=== PATIENT | female | born 1945 | race Two or more races ===

== ENCOUNTER 2022-09-23 07:52 | Day surgery (SDC) | payer OTHER, MEDICAID ==
[2022-09-23] VITALS (7 sets, daily range): BP systolic 123–150; BP diastolic 53–86
[~2022-09-23] VITALS: Ht 162.6 cm; Wt 81.6 kg
[~2022-09-23 07:52] MED LIST: ASPI-543 PO; ATOR10TA52 PO; GLIM4TAB42 PO; HYDR25TA5 PO; LOSA25TA38 PO; METF-929 PO; METO25TA93 PO; PANT40T PO; PIOG1TAB51 PO; SITA100T7 PO
[2022-09-23] MEDS ORDERED: IODIXANOL 320MG/ML 100ML BTL IV ONE ×2 (10:21→10:54)
[2022-09-23] MEDS ORDERED: HEPARIN SODIUM (PORCINE) 5000 UNITS/ML 1ML VIAL ONE (10:23)
[2022-09-23] MEDS ORDERED: ANGIOMAX 250 MG VIAL IV ONE (10:23)
[2022-09-23] MEDS ORDERED: fentaNYL CITRATE 100 MCG/2 ML VL ONE (10:23)
[2022-09-23] MEDS ORDERED: VERAPAMIL 2.5MG/ML INJ 2ML VIAL IV ONE (10:23)
[2022-09-23] MEDS ORDERED: SODIUM CHL 0.9% 0 ML ONE (10:24)
[2022-09-23] MEDS ORDERED: MIDAZOLAM HCL 2MG/2ML 2ml VIAL (1mg/ml) ONE (10:24)
[2022-09-23] MEDS ORDERED: LIDOCAINE 2%HCL (LOCAL ANESTH.) INJ 10ml MDV ONE (10:28)
== END 2022-09-23 14:11 | disposition home or self-care (01) ==
LOC: CATH 07:52
PROVIDERS: ATTEND Internal Medicine
DX: R94.39 Abnormal result of other cardiovascular function study (principal); I25.118 Atherosclerotic heart disease of native coronary artery with other forms of angina pectoris; I10 Essential (primary) hypertension; Z88.0 Allergy status to penicillin; Z79.899 Other long term (current) drug therapy; Z20.822 Contact with and (suspected) exposure to COVID-19
CPT/HCPCS: 82962; 93458; C1769; C1887; C1894; J1644; J2001; J2250; J3010; Q9967; U0003; 99152; 99153

== ENCOUNTER 2022-11-26 21:36 | Inpatient (IN) | payer OTHER ==
[~2022-11-26] VITALS: Ht 162.6 cm; Wt 86.0 kg
[2022-11-26 22:31] LABS: Basophils # (auto) 0.1 10 ^3/uL (0-0.2); Basophils % (auto) 1.1 % (0.0-2.0); Eosinophils # (auto) 0.1 10 ^3/uL (0-0.8); Eosinophils % (auto) 1.3 % (0.0-7.0); Hematocrit 38.3 % (36.0-46.0); Hemoglobin 12.8 g/dL (12.2-16.2); Lymphocytes # (auto) 2.1 10 ^3/uL (0.4-5.4); Lymphocytes % (auto) 29.8 % (10.0-50.0); Mean Corpuscular Hemoglobin 30.6 pg (28.0-32.0); Mean Corpuscular Hgb Conc. 33.5 g/dL (32.0-36.0); Mean Corpuscular Volume 91.4 fL (80.0-100.0); Monocytes # (auto) 0.6 10 ^3/uL (0-1.3); Monocytes % (auto) 8.6 % (0.0-12.0); Neutrophils # (auto) 4.2 10 ^3/uL (1.6-8.6); Neutrophils % (auto) 59.2 % (37.0-80.0); Nucleated Red Blood Cells % 0.1 %; Red Blood Cells 4.19 10^6/uL (4.0-5.20); Red Cell Distribution Width 14.7 % (11.8-14.3)
[2022-11-26] MEDS ORDERED: HEPARIN DRIP/D5W 100UNITS/ML 250 ML IV SCH (22:45)
[2022-11-26] MEDS ORDERED: HEPARIN SODIUM (PORCINE) 5000 UNITS/ML 1ML VIAL IV ONE (22:45)
[2022-11-26 22:47] LABS: INR 0.99 (0.9-1.15); Partial Thromboplastin Time 31.9 sec (24.6-33.4)
[2022-11-26 23:15] LABS: Albumin 3.6 g/dL (3.4-5.0); BUN/Creatinine Ratio 23.7; Magnesium 1.9 mg/dL (1.6-2.6)
[2022-11-26 23:18] LABS: Bilirubin, Total 0.4 mg/dL (0.2-1.0); Total Protein 7.6 g/dL (6.4-8.2)
[2022-11-27] MEDS ORDERED: ONDANSETRON HCL 4 MG/2 ML VIAL IV ONE (00:15)
[2022-11-27] MEDS ORDERED: MORPHINE SULFATE 4 MG/ML SYR/VIAL IV ONE (00:15)
[2022-11-27] MEDS ORDERED: MAGNESIUM SULFATE 1GM/100ML 100 ML IV ONE (00:15)
[2022-11-27] MEDS ORDERED: ACETAMINOPHEN 500 MG TAB PO PRN (03:30)
[2022-11-27] MEDS ORDERED: DEXTROSE (50%) 50ML SYRG IV PRN (07:45)
[2022-11-27] MEDS ORDERED: PANTOPRAZOLE 40 MG TAB PO SCH (07:45)
[2022-11-27 07:48] LABS: INR 1.02 (0.9-1.15)
[2022-11-27 07:57] LABS: Partial Thromboplastin Time 115.4 sec (24.6-33.4)
[2022-11-27] MEDS ORDERED: HEPARIN DRIP/D5W 100UNITS/ML 250 ML IV SCH (09:00)
[2022-11-27] MEDS: METOPROLOL SUCCINATE XL 50 MG TAB PO SCH (11:01)
[2022-11-27] MEDS: LOSARTAN POTASSIUM 25 MG TAB PO SCH (11:01)
[2022-11-27] MEDS: GLIMEPIRIDE 2 MG TAB PO SCH (11:02)
[2022-11-27] MEDS: ACCU-CHEK COMFORT CURVE STRIP VI SCH ×3 (12:02→22:35)
[2022-11-27] MEDS: InsuLIN REG 1unit/0.01ml Soln (100units/ml) SC SCH ×3 (12:04→22:45)
[2022-11-27 15:56] LABS: INR 0.99 (0.9-1.15); Partial Thromboplastin Time 42.1 sec (24.6-33.4)
[2022-11-27] MEDS: ONDANSETRON HCL 4 MG/2 ML VIAL IV PRN (16:04)
[2022-11-27] MEDS: MORPHINE SULFATE 4 MG/ML SYR/VIAL IV PRN ×2 (16:05→17:50)
[2022-11-27] MEDS: HEPARIN DRIP/D5W 100UNITS/ML 250 ML IV SCH (17:47)
[2022-11-27] MEDS: ATORVASTATIN 20 MG TAB PO SCH (22:51)
[2022-11-28 01:02] LABS: Partial Thromboplastin Time 61.9 sec (24.6-33.4)
[2022-11-28] MEDS: ONDANSETRON HCL 4 MG/2 ML VIAL IV PRN ×2 (01:13→11:42)
[2022-11-28] MEDS: MORPHINE SULFATE 4 MG/ML SYR/VIAL IV PRN (01:23)
[2022-11-28 06:28] LABS: INR 1.01 (0.9-1.15); Partial Thromboplastin Time 64.3 sec (24.6-33.4)
[2022-11-28] MEDS: ACCU-CHEK COMFORT CURVE STRIP VI SCH ×4 (07:19→22:31)
[2022-11-28] MEDS: InsuLIN REG 1unit/0.01ml Soln (100units/ml) SC SCH ×4 (08:08→22:38)
[2022-11-28] MEDS: HEPARIN DRIP/D5W 100UNITS/ML 250 ML IV SCH (08:09)
[2022-11-28] MEDS: GLIMEPIRIDE 2 MG TAB PO SCH (10:31)
[2022-11-28] MEDS: LOSARTAN POTASSIUM 25 MG TAB PO SCH (10:35)
[2022-11-28] MEDS: METOPROLOL SUCCINATE XL 50 MG TAB PO SCH (10:35)
[2022-11-28] MEDS: MORPHINE SULFATE INJ 2 MG/ml SYRG IV PRN ×2 (11:41→21:22)
[2022-11-28 12:49] LABS: INR 1.01 (0.9-1.15); Partial Thromboplastin Time 57.3 sec (24.6-33.4)
[2022-11-28] MEDS ORDERED: DOCUSATE SOD 100 MG CAP PO PRN (18:00)
[2022-11-28 22:00] VITALS: BP 131/58
[2022-11-28] MEDS: ATORVASTATIN 20 MG TAB PO SCH (22:27)
[2022-11-28 23:14] LABS: INR 0.99 (0.9-1.15); Partial Thromboplastin Time 51.1 sec (24.6-33.4)
[2022-11-29 04:54] VITALS: BP 149/69
[2022-11-29] MEDS: ACCU-CHEK COMFORT CURVE STRIP VI SCH ×3 (06:33→17:43)
[2022-11-29] MEDS: InsuLIN REG 1unit/0.01ml Soln (100units/ml) SC SCH ×3 (06:34→17:46)
[2022-11-29 06:39] LABS: INR 0.98 (0.9-1.15); Partial Thromboplastin Time 55.2 sec (24.6-33.4)
[2022-11-29 09:00] VITALS: BP 109/46
[2022-11-29] MEDS: LOSARTAN POTASSIUM 25 MG TAB PO SCH (09:44)
[2022-11-29] MEDS: GLIMEPIRIDE 2 MG TAB PO SCH (09:44)
[2022-11-29] MEDS: METOPROLOL SUCCINATE XL 50 MG TAB PO SCH (09:45)
[2022-11-29 13:00] VITALS: BP 119/54
[2022-11-29] MEDS: HEPARIN DRIP/D5W 100UNITS/ML 250 ML IV SCH (13:11)
[2022-11-29] MEDS: ONDANSETRON HCL 4 MG/2 ML VIAL IV PRN (14:40)
[2022-11-29] MEDS: MORPHINE SULFATE INJ 2 MG/ml SYRG IV PRN (14:41)
[2022-11-29 16:38] VITALS: BP 122/58
[2022-11-29] MEDS ORDERED: ASPirin 81 mg TAB PO ONE (17:15)
[2022-11-30] MEDS ORDERED: ASPirin 81 mg TAB PO SCH (10:00)
== END 2022-11-29 21:28 | disposition short-term general hospital (02) | DRG 282 ==
LOC: ER 21:40 → TELE 11-27 03:29 → TELE-WESTW 11-28 18:39
PROVIDERS: ADMIT Internal Medicine; ATTEND Internal Medicine
DX: I21.4 Non-ST elevation (NSTEMI) myocardial infarction (principal); I10 Essential (primary) hypertension; E11.65 Type 2 diabetes mellitus with hyperglycemia; E66.9 Obesity, unspecified; K21.9 Gastro-esophageal reflux disease without esophagitis; E78.5 Hyperlipidemia, unspecified; Z20.822 Contact with and (suspected) exposure to COVID-19; J44.9 Chronic obstructive pulmonary disease, unspecified; I25.10 Atherosclerotic heart disease of native coronary artery without angina pectoris; Z68.32 Body mass index [BMI] 32.0-32.9, adult; Z86.73 Personal history of transient ischemic attack (TIA), and cerebral infarction without residual deficits; Z88.0 Allergy status to penicillin; Z90.49 Acquired absence of other specified parts of digestive tract
CPT/HCPCS: 36415; 71045; 80053; 82962; 83735; 83880; 84484; 85025; 85610; 85730; 87426; 93005; 99291; G0378; J1815; J2405

== ENCOUNTER 2023-04-17 21:07 | Inpatient (IN) | payer OTHER ==
[~2023-04-17] VITALS: Ht 162.6 cm; Wt 77.4 kg
[~2023-04-17 21:07] MED LIST changes: +LOSA25TA15 PO; -LOSA25TA38 PO
[2023-04-17 22:12] LABS: Basophils # (auto) 0.1 10 ^3/uL (0-0.2); Eosinophils # (auto) 0.1 10 ^3/uL (0-0.8); Lymphocytes # (auto) 2.4 10 ^3/uL (0.4-5.4); Nucleated Red Blood Cells % 0.1 %; White Blood Cell 7.5 10^3/uL (4.4-10.8)
[2023-04-17 22:14] LABS: Basophils % (auto) 0.7 % (0.0-2.0); Eosinophils % (auto) 1.5 % (0.0-7.0); Hematocrit 34.3 % (36.0-46.0); Mean Corpuscular Hemoglobin 25.7 pg (28.0-32.0); Mean Corpuscular Hgb Conc. 32.1 g/dL (32.0-36.0); Mean Corpuscular Volume 80.1 fL (80.0-100.0); Monocytes # (auto) 0.7 10 ^3/uL (0-1.3); Monocytes % (auto) 9.3 % (0.0-12.0); Neutrophils # (auto) 4.2 10 ^3/uL (1.6-8.6); Neutrophils % (auto) 56.5 % (37.0-80.0); Red Blood Cells 4.28 10^6/uL (4.0-5.20); Red Cell Distribution Width 17.6 % (11.8-14.3)
[2023-04-17 22:29] LABS: Albumin 3.5 g/dL (3.4-5.0); Calcium 9.5 mg/dL (8.5-10.1); Potassium 3.9 mmol/L (3.5-5.1)
[2023-04-17 22:33] LABS: Bilirubin, Total 0.3 mg/dL (0.2-1.0); Total Protein 7.8 g/dL (6.4-8.2)
[2023-04-18] MEDS ORDERED: MECLIZINE HCL 25 MG TAB PO ONE (01:30)
[2023-04-18] MEDS ORDERED: SODIUM CHLORIDE 0.9% 500 ML IV ONE (01:30)
[2023-04-18] MEDS ORDERED: diazePAM 5 MG TAB PO ONE (01:30)
[2023-04-18 01:58] LABS: Urine Bacteria FEW /hpf (None Seen); Urine Blood Negative /uL (Negative); Urine Specific Gravity 1.004 (1.001-1.035); Urine WBC 1 /hpf (0 - 5)
[2023-04-18] MEDS ORDERED: ONDANSETRON HCL 4 MG/2 ML VIAL IV PRN (02:15)
[2023-04-18] MEDS ORDERED: hydrALAZINE HCL 20 MG/ML VL IV PRN (02:15)
[2023-04-18] MEDS ORDERED: ACETAMINOPHEN 325 MG TAB PO PRN (02:15)
[2023-04-18] MEDS ORDERED: DOCUSATE SOD 100 MG CAP PO PRN (02:15)
[2023-04-18] MEDS ORDERED: HYDROcodone-ACET 5/325MG TAB PO PRN (02:15)
[2023-04-18] MEDS ORDERED: DEXTROSE (50%) 50ML SYRG IV PRN (02:15)
[2023-04-18] MEDS ORDERED: NITROGLYCERIN 0.4 MG SL TAB SL PRN (03:00)
[2023-04-18] MEDS ORDERED: MORPHINE SULFATE INJ 2 MG/ml SYRG IV PRN (03:00)
[2023-04-18] MEDS: SODIUM CHLORIDE 0.9% 1,000 ML IV SCH ×2 (03:03→18:55)
[2023-04-18 05:47] LABS: Basophils # (auto) 0.1 10 ^3/uL (0-0.2); Eosinophils # (auto) 0.2 10 ^3/uL (0-0.8); Hemoglobin 10.4 g/dL (12.2-16.2); Monocytes # (auto) 0.7 10 ^3/uL (0-1.3); Nucleated Red Blood Cells % 0.1 %
[2023-04-18 05:50] LABS: Basophils % (auto) 0.9 % (0.0-2.0); Eosinophils % (auto) 2.2 % (0.0-7.0); Hematocrit 32.4 % (36.0-46.0); Lymphocytes % (auto) 39.1 % (10.0-50.0); Mean Corpuscular Hemoglobin 25.9 pg (28.0-32.0); Mean Corpuscular Hgb Conc. 32.3 g/dL (32.0-36.0); Mean Corpuscular Volume 80.3 fL (80.0-100.0); Monocytes % (auto) 8.5 % (0.0-12.0); Neutrophils # (auto) 3.8 10 ^3/uL (1.6-8.6); Neutrophils % (auto) 49.3 % (37.0-80.0); Red Blood Cells 4.03 10^6/uL (4.0-5.20); Red Cell Distribution Width 17.6 % (11.8-14.3); White Blood Cell 7.7 10^3/uL (4.4-10.8)
[2023-04-18 05:53] LABS: Calcium 9.2 mg/dL (8.5-10.1); Potassium 3.5 mmol/L (3.5-5.1)
[2023-04-18 05:56] LABS: Bilirubin, Total 0.3 mg/dL (0.2-1.0); Total Protein 6.9 g/dL (6.4-8.2)
[2023-04-18] MEDS: ACCU-CHEK COMFORT CURVE STRIP VI SCH ×4 (06:49→22:00)
[2023-04-18] MEDS: InsuLIN REG 1unit/0.01ml Soln (100units/ml) SC SCH ×3 (06:49→16:44)
[2023-04-18] MEDS: METOPROLOL TARTRATE 25 MG TAB PO SCH ×2 (10:09→22:04)
[2023-04-18] MEDS: ASPirin 81 mg TAB PO SCH (10:10)
[2023-04-18] MEDS: FAMOTIDINE (10MG/ML) 2ML VL IV SCH ×2 (10:10→22:04)
[2023-04-18 11:06] VITALS: BP 130/62
[2023-04-18] MEDS: MECLIZINE HCL 25 MG TAB PO PRN (17:00)
[2023-04-18 17:22] VITALS: BP 123/59
[2023-04-18] MEDS ORDERED: LORazepam 2MG/ML-1ML VIAL IV PRN (20:30)
[2023-04-18 22:00] VITALS: BP 144/71
[2023-04-18] MEDS ORDERED: ATORVASTATIN 20 MG TAB PO SCH (22:00)
[2023-04-18] MEDS ORDERED: InsuLIN REG 1unit/0.01ml Soln (100units/ml) SC SCH (22:00)
[2023-04-19 05:00] VITALS: BP 154/68
[2023-04-19 05:46] LABS: Basophils # (auto) 0.1 10 ^3/uL (0-0.2); Eosinophils # (auto) 0.2 10 ^3/uL (0-0.8); Hemoglobin 11.4 g/dL (12.2-16.2); Mean Corpuscular Volume 79.8 fL (80.0-100.0); Monocytes # (auto) 0.6 10 ^3/uL (0-1.3); Nucleated Red Blood Cells % 0.1 %
[2023-04-19 05:49] LABS: Basophils % (auto) 1.2 % (0.0-2.0); Calcium 9.3 mg/dL (8.5-10.1); Eosinophils % (auto) 2.4 % (0.0-7.0); Hematocrit 35.1 % (36.0-46.0); Lymphocytes # (auto) 3.1 10 ^3/uL (0.4-5.4); Lymphocytes % (auto) 42.8 % (10.0-50.0); Mean Corpuscular Hemoglobin 25.9 pg (28.0-32.0); Mean Corpuscular Hgb Conc. 32.5 g/dL (32.0-36.0); Monocytes % (auto) 7.6 % (0.0-12.0); Neutrophils # (auto) 3.4 10 ^3/uL (1.6-8.6); Potassium 3.9 mmol/L (3.5-5.1); Red Blood Cells 4.39 10^6/uL (4.0-5.20); Red Cell Distribution Width 17.8 % (11.8-14.3); White Blood Cell 7.3 10^3/uL (4.4-10.8)
[2023-04-19 05:55] LABS: Albumin 3.2 g/dL (3.4-5.0); BUN/Creatinine Ratio 24.3 (10.0-20.0); Bilirubin, Total 0.4 mg/dL (0.2-1.0); Total Protein 7.5 g/dL (6.4-8.2)
[2023-04-19] MEDS: InsuLIN REG 1unit/0.01ml Soln (100units/ml) SC SCH ×2 (06:02→11:58)
[2023-04-19] MEDS: ACCU-CHEK COMFORT CURVE STRIP VI SCH ×2 (06:37→12:44)
[2023-04-19] MEDS: FAMOTIDINE (10MG/ML) 2ML VL IV SCH (09:58)
[2023-04-19] MEDS: ASPirin 81 mg TAB PO SCH (09:58)
[2023-04-19] MEDS: MECLIZINE HCL 25 MG TAB PO PRN (09:58)
[2023-04-19] MEDS: METOPROLOL TARTRATE 25 MG TAB PO SCH (10:09)
[2023-04-19] MEDS: SODIUM CHLORIDE 0.9% 1,000 ML IV SCH ×2 (11:35→13:00)
[2023-04-19 13:00] VITALS: BP 126/76
[2023-04-19] MEDS ORDERED: MECL25CH38 PO (13:33)
[2023-04-19 13:43] VITALS: BP 147/65
== END 2023-04-19 14:45 | disposition home or self-care (01) | DRG 149 ==
LOC: ER 21:07 → TELE 04-18 02:51 → TELE-EAST 04-18 12:20
PROVIDERS: ADMIT Nurse Practitioner Family; ATTEND Internal Medicine
DX: R42 Dizziness and giddiness (principal); E44.1 Mild protein-calorie malnutrition; E11.65 Type 2 diabetes mellitus with hyperglycemia; I10 Essential (primary) hypertension; I16.0 Hypertensive urgency; I25.10 Atherosclerotic heart disease of native coronary artery without angina pectoris; J44.9 Chronic obstructive pulmonary disease, unspecified; D64.9 Anemia, unspecified; M19.90 Unspecified osteoarthritis, unspecified site; K21.9 Gastro-esophageal reflux disease without esophagitis; Z82.49 Family history of ischemic heart disease and other diseases of the circulatory system; Z86.73 Personal history of transient ischemic attack (TIA), and cerebral infarction without residual deficits; Z83.3 Family history of diabetes mellitus; Z88.0 Allergy status to penicillin; Z95.1 Presence of aortocoronary bypass graft; Z87.440 Personal history of urinary (tract) infections; Z90.49 Acquired absence of other specified parts of digestive tract; Z68.29 Body mass index [BMI] 29.0-29.9, adult
CPT/HCPCS: 36415; 70450; 71045; 71250; 72125; 74176; 80053; 81001; 82962; 83036; 83735; 83880; 84484; 85025; 93005; 97163; G0378; J1815; J3490

== ENCOUNTER 2024-02-13 13:01 | Emergency (ER) | payer OTHER ==
[~2024-02-13] VITALS: Ht 162.6 cm; Wt 70.5 kg
[~2024-02-13 13:01] MED LIST changes: +LOSA-533 PO; -LOSA25TA15 PO; +MECL25CH38 PO; -METO25TA93 PO; -PIOG1TAB51 PO
[2024-02-13 14:19] LABS: Urine Bacteria FEW /hpf (None Seen); Urine Blood Negative /uL (Negative); Urine Clarity Clear (Clear); Urine Color Colorless (Yellow); Urine Protein, UAD Negative (Negative); Urine Specific Gravity 1.009 (1.001-1.035); Urine Urobilinogen Normal (Negative); Urine WBC 5 /hpf (0 - 5)
[2024-02-13] MEDS: ONDANSETRON ODT 4 MG TAB PO ONE (14:40)
[2024-02-13 14:42] LABS: Basophils # (auto) 0 10 ^3/uL (0-0.2); Basophils % (auto) 0.7 % (0.0-2.0); Eosinophils # (auto) 0.1 10 ^3/uL (0-0.8); Eosinophils % (auto) 1.5 % (0.0-7.0); Hematocrit 43.6 % (36.0-46.0); Lymphocytes # (auto) 2.1 10 ^3/uL (0.4-5.4); Lymphocytes % (auto) 30.1 % (10.0-50.0); Mean Corpuscular Hemoglobin 28.8 pg (28.0-32.0); Mean Corpuscular Volume 89.9 fL (80.0-100.0); Monocytes # (auto) 0.5 10 ^3/uL (0-1.3); Monocytes % (auto) 6.9 % (0.0-12.0); Neutrophils # (auto) 4.3 10 ^3/uL (1.6-8.6); Neutrophils % (auto) 60.8 % (37.0-80.0); Nucleated Red Blood Cells % 0.1 %; Red Blood Cells 4.85 10^6/uL (4.0-5.20); Red Cell Distribution Width 15.9 % (11.8-14.3); White Blood Cell 7.1 10^3/uL (4.4-10.8)
[2024-02-13 14:43] VITALS: TEMP 98
[2024-02-13 15:01] LABS: Alanine Aminotransferase 24 U/L (7-40); Albumin 4.1 g/dL (3.2-4.8); Alkaline Phosphatase 109 U/L (46-116); Anion Gap 7 (5-15); Aspartate Aminotransferase 17 U/L (13-40); BUN/Creatinine Ratio 26.6 (10.0-20.0); Bilirubin, Total 0.4 mg/dL (0.2-1.0); Blood Urea Nitrogen 17 mg/dL (9-23); Calcium 9.9 mg/dL (8.7-10.4); Carbon Dioxide 25 mmol/L (20-30); Chloride 106 mmol/L (98-107); Glucose 157 mg/dL (74-106); Lipase 40 U/L (12-53); Potassium 3.9 mmol/L (3.5-5.1); Sodium 138 mmol/L (136-145); Total Protein 7.1 g/dL (5.7-8.2)
[2024-02-13] MEDS ORDERED: ZOFR4T PO (15:19)
[2024-02-13] MEDS ORDERED: DICY10CA PO (15:19)
[2024-02-13] MEDS: MAALOX PLUS or MAALOX 30 ML PO ONE (15:57)
[2024-02-13] MEDS: DONNATAL 5ml ORAL Elix (BELLADONNA ALK-PHENOBARB) PO ONE (15:57)
[2024-02-13] MEDS: LIDOCAINE VISCOUS 2% 15ML UD PO ONE (15:58)
[2024-02-13 16:00] VITALS: BP 106/54
[2024-02-13 16:16] VITALS: PULSE 75; RESP 15; O2SAT 95
== END 2024-02-13 16:29 | disposition home or self-care (01) ==
LOC: ER 13:01
DX: K57.90 Diverticulosis of intestine, part unspecified, without perforation or abscess without bleeding (principal); R10.32 Left lower quadrant pain; R19.7 Diarrhea, unspecified; I10 Essential (primary) hypertension; I25.10 Atherosclerotic heart disease of native coronary artery without angina pectoris; E11.9 Type 2 diabetes mellitus without complications; K21.9 Gastro-esophageal reflux disease without esophagitis; M19.90 Unspecified osteoarthritis, unspecified site; E78.5 Hyperlipidemia, unspecified; Z86.2 Personal history of diseases of the blood and blood-forming organs and certain disorders involving the immune mechanism; Z86.73 Personal history of transient ischemic attack (TIA), and cerebral infarction without residual deficits; Z98.890 Other specified postprocedural states; Z88.0 Allergy status to penicillin; Z79.899 Other long term (current) drug therapy
CPT/HCPCS: 36415; 74176; 80053; 81001; 83605; 83690; 85025; 99284; Q0162

== ENCOUNTER 2024-03-11 09:18 | Emergency (ER) | payer OTHER ==
[~2024-03-11] VITALS: Ht 162.6 cm; Wt 69.7 kg
[~2024-03-11 09:18] MED LIST changes: +DICY10CA PO; +ZOFR4T PO
[2024-03-11] MEDS: cloNIDine HCL 0.1 MG TAB PO ONE (09:40)
[2024-03-11 10:16] LABS: Basophils # (auto) 0.1 10 ^3/uL (0-0.2); Basophils % (auto) 0.8 % (0.0-2.0); Eosinophils # (auto) 0.1 10 ^3/uL (0-0.8); Eosinophils % (auto) 1.6 % (0.0-7.0); Hematocrit 43.2 % (36.0-46.0); Hemoglobin 14.4 g/dL (12.2-16.2); Lymphocytes # (auto) 2.1 10 ^3/uL (0.4-5.4); Lymphocytes % (auto) 27.8 % (10.0-50.0); Mean Corpuscular Hemoglobin 30.1 pg (28.0-32.0); Mean Corpuscular Hgb Conc. 33.2 g/dL (32.0-36.0); Mean Corpuscular Volume 90.6 fL (80.0-100.0); Monocytes # (auto) 0.5 10 ^3/uL (0-1.3); Monocytes % (auto) 5.8 % (0.0-12.0); Nucleated Red Blood Cells % 0.1 %; Red Blood Cells 4.77 10^6/uL (4.0-5.20); White Blood Cell 7.7 10^3/uL (4.4-10.8)
[2024-03-11 10:27] LABS: Chloride 107 mmol/L (98-107); Sodium 139 mmol/L (136-145)
[2024-03-11 10:28] LABS: Anion Gap 4 (5-15); Calcium 9.8 mg/dL (8.5-10.1); Carbon Dioxide 28 mmol/L (20-30)
[2024-03-11 10:33] LABS: BUN/Creatinine Ratio 29.1 (10.0-20.0); Blood Urea Nitrogen 16 mg/dL (9-23); Glucose 175 mg/dL (74-106)
[2024-03-11 13:46] VITALS: BP 105/73; PULSE 70; RESP 16; TEMP 98.2; O2SAT 96
== END 2024-03-11 13:48 | disposition home or self-care (01) ==
LOC: ER 09:18
DX: I16.0 Hypertensive urgency (principal); E78.5 Hyperlipidemia, unspecified; E11.9 Type 2 diabetes mellitus without complications; K21.9 Gastro-esophageal reflux disease without esophagitis; I25.10 Atherosclerotic heart disease of native coronary artery without angina pectoris; M19.90 Unspecified osteoarthritis, unspecified site; Z86.2 Personal history of diseases of the blood and blood-forming organs and certain disorders involving the immune mechanism; Z98.890 Other specified postprocedural states; Z88.0 Allergy status to penicillin; Z79.899 Other long term (current) drug therapy
CPT/HCPCS: 36415; 80048; 84484; 85025; 93005

== ENCOUNTER → 2024-06-07 | Outpatient (CLI) | payer MEDICAID ==
[2024-06-07 11:16] LABS: Basophils # (auto) 0.1 10 ^3/uL (0-0.2); Eosinophils # (auto) 0.1 10 ^3/uL (0-0.8); Eosinophils % (auto) 2.6 % (0.0-7.0); Hematocrit 41.9 % (36.0-46.0); Hemoglobin 14.2 g/dL (12.2-16.2); Lymphocytes # (auto) 1.9 10 ^3/uL (0.4-5.4); Mean Corpuscular Hemoglobin 31.7 pg (28.0-32.0); Mean Corpuscular Volume 93.3 fL (80.0-100.0); Monocytes # (auto) 0.5 10 ^3/uL (0-1.3); Monocytes % (auto) 8.4 % (0.0-12.0); Platelet Count (auto) 166 10^3/uL (140-450); Red Blood Cells 4.49 10^6/uL (4.0-5.20); Red Cell Distribution Width 14.6 % (11.8-14.3); White Blood Cell 5.5 10^3/uL (4.4-10.8)
[2024-06-07 11:23] LABS: Urine Bacteria FEW /hpf (None Seen); Urine Blood Negative /uL (Negative); Urine Clarity Turbid (Clear); Urine Color Colorless (Yellow); Urine Protein, UAD Negative (Negative); Urine Specific Gravity 1.019 (1.001-1.035); Urine Urobilinogen Normal (Negative); Urine WBC 4 /hpf (0 - 5)
[2024-06-07 12:11] LABS: Alanine Aminotransferase 18 U/L (7-40); Alkaline Phosphatase 97 U/L (46-116); Anion Gap 8 (5-15); Aspartate Aminotransferase 14 U/L (13-40); BUN/Creatinine Ratio 27.7 (10.0-20.0); Bilirubin, Total 0.5 mg/dL (0.2-1.0); Blood Urea Nitrogen 18 mg/dL (9-23); Calcium 10.6 mg/dL (8.7-10.4); Carbon Dioxide 26 mmol/L (20-30); Chloride 106 mmol/L (98-107); Cholesterol 132 mg/dL (< 200); Glucose 120 mg/dL (74-106); HDL Cholesterol 41 mg/dL (40-59); LDL Cholesterol 68 mg/dL (< 100); Magnesium 1.8 mg/dL (1.6-2.6); Potassium 3.8 mmol/L (3.5-5.1); Sodium 140 mmol/L (136-145); Total Protein 7.1 g/dL (5.7-8.2); Triglycerides 111 mg/dL (< 150)
[2024-06-07 12:28] LABS: Folate (Folic Acid) 33.81 ng/mL (>5.38); Uric Acid 3.6 mg/dL (3.1-7.8)
== END | disposition home or self-care (01) ==
LOC: LAB 10:36
PROVIDERS: ATTEND Internal Medicine
DX: Z00.00 Encounter for general adult medical examination without abnormal findings (principal); I25.10 Atherosclerotic heart disease of native coronary artery without angina pectoris; E11.9 Type 2 diabetes mellitus without complications; Z79.4 Long term (current) use of insulin; I10 Essential (primary) hypertension; E78.2 Mixed hyperlipidemia
CPT/HCPCS: 36415; 80053; 80061; 81001; 82306; 82607; 82746; 83036; 83735; 84443; 84550; 85025; 87086

== ENCOUNTER 2024-09-12 18:16 | Emergency (ER) | payer OTHER, MEDICAID ==
[~2024-09-12] VITALS: Ht 162.6 cm; Wt 75.0 kg
[~2024-09-12 18:16] MED LIST changes: +ALOG1TAB2 PO; +ATOR20TA PO; +DICL5GEL TD; +EMPA1TAB3 PO; +OME20T PO; +SEMA2INJ3 SC; +TRAZ-227 PO
[2024-09-12 18:20] VITALS: BP 108/63; RESP 20; O2SAT 95
[2024-09-12 18:21] VITALS: PULSE 108
--- NOTE | 2024-09-12 18:24 | ECG ---
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
--- NOTE | 2024-09-12 18:44 | ED.PDOC ---
History of Present Illness HPI Comments 79-year-old female with history of CAD, diabetes, hypertension and dyslipidemia brought in by daughter for evaluation of abdominal pain nausea and vomiting all day today. Patient also reports dysuria and subjective fever. She denies any current chest pain, shortness of breath or diarrhea. States she is constipated. Last bowel movement was yesterday. Patient also reports taking 1 sublingual nitroglycerin due to chest discomfort at home. Time Seen by MD: 18:30 Primary Care Provider: unknown Reviewed Notes: Nurses Notes, Medications, Allergies Allergies: Coded Allergies: Penicillins (Verified Allergy, Unknown, 08/21/16) Home Meds Active Scripts Ondansetron Odt 4MG Tab (ZOFRAN PO) 4 Mg Tb, 4 MG PO Q8HR PRN, #14 TAB ODT TAB-DISSOLVE IN MOUTH, THEN SWALLOW Prov:AMY COPELAND MD 02/13/24 Dicyclomine Hcl (BENTYL CAPSULE) 10 Mg Cp, 1 CAP PO Q6HR PRN, #20 CAP 3 Refills Prov:AMY COPELAND MD 02/13/24 Meclizine HCl (Meclizine) 25 Mg Chw, 25 MG PO BIDPRN PRN for 30 Days, #60 CHW Prov:FLORI MACARIO TELE MARKETING EXECUTIVE 04/19/23 Reported Medications Hctz (Hydrochlorothiazide) 25 Mg Tab, 50 MG PO DAILY for EDEMA, TAB 09/20/22 Losartan Potassium (Losartan Potassium) 25 Mg Tab, 25 MG PO DAILY for HTN for 30 Days, MG 09/20/22 Sitagliptin Phosphate (Januvia) 100 Mg Tab, 1 TAB PO DAILY for DIABETES, #30 TAB 5 Refills 09/20/22 Atorvastatin Calcium (ATORVASTATIN CALCIUM) 10 Mg Tab, 1 TAB PO DAILY for HIGH CHOLESTEROL, #30 TAB 5 Refills 09/20/22 Aspirin (Aspir-Low) 81 Mg Tab, 81 MG PO DAILY for CAD, MG 09/20/22 Glimepiride (Glimepiride) 4 Mg Tab, 4 MG PO DAILY for DIABETES, MG 09/20/22 Metformin HCl (Metformin Hydrochloride) 1,000 Mg Tab, 1000 MG PO DAILY for DIABETES, TAB 09/20/22 Pantoprazole Sodium Sesquihydr (Pantoprazole Sodium) 40 Mg Tab, 20 MG PO BS for GERD, TAB 09/20/22 Information Source: Patient, Relative (Child) Mode of Arrival: Wheelchair Severity: Moderate Timing: Hours Duration: Since onset, Hours Prehospital treatment: None Past Medical History PAST MEDICAL HISTORY: Anemia, Arthritis, CAD, CVA, DM, GERD, High Lipids, HTN Surgical History: CABG, Cholecystectomy, Hysterectomy COMPUTATIONAL LINGUIST History: No Pertinent COMPUTATIONAL LINGUIST History Family History Family History: Reviewed,noncontributory to illness, Unknown Social History Smoker: Non-Smoker Alcohol: Denies ETOH Use Drugs: Denies Drug Use Lives In: Home Constitutional: denies: chills, diaphoresis, fatigue, fever, malaise, sweats, weakness, others EENTM: denies: blurred vision, double vision, ear bleeding, ear discharge, ear drainage, ear pain, ear ringing, eye pain, eye redness, hearing loss, mouth pain, mouth swelling, nasal discharge, nose bleeding, nose congestion, nose pain, photophobia, tearing, throat pain, throat swelling, voice changes, others Respiratory: denies: cough, hemoptysis, orthopnea, SOB at rest, shortness of breath, SOB with excertion, stridor, wheezing, others Cardiovascular: denies: chest pain, dizzy spells, diaphoresis, Dyspnea on exertion, edema, irregular heart beat, left arm pain, lightheadedness, palpitations, PND, syncope, others Gastrointestinal: reports: nausea, vomiting; denies: abdomen distended, abdominal pain, blood streaked bowels, constipated, diarrhea, dysphagia, dif ficulty swallowing, hematemesis, melena, poor appetite, poor fluid intake, rectal bleeding, rectal pain, others Genitourinary: denies: abnormal vagina bleeding, burning, dyspareunia, dysuria, flank pain, frequency, hematuria, incontinence, pain, , vagina discharge, urgency, others Neurological: denies: dizziness, fainting, headache, left sided numbness, left sided weakness, numbness, paresthesia, pre-existing deficit, right sided numbness, right sided weakness, seizure, speech problems, tingling, tremors, weakness, others Musculoskeletal: denies: back pain, gout, joint pain, joint swelling, muscle pain, muscle stiffness, neck pain, others Integumetry: denies: bruises, change in color, change in hair/nails, dryness, laceration, lesions, lumps, rash, wounds, others Allergic/Immunocompromised: denies: Difficulty Healing, Frequent Infections, Hives, Itching, others Hematologic/Lymphatic: denies: anemia, blood clots, easy bleeding, easy bruising, swollen glands, others Endocrine: denies: excessive hunger, excessive sweating, excessive thirst, excessive urination, flushing, intolerance to cold, intolerance to heat, unexplained weight gain, unexplained weight loss, others Psychiatric: denies: anxiety, bipolar disorder, depression, hopeless, panic disorder, schizophrenia, sleepless, suicidal, others All Other Systems: Reviewed and Negative Physical Exam General Appearance: Moderate Distress HEENT: Normal ENT Inspection Neck: Full Range of Motion, Normal Inspection Respiratory: Lungs Clear, No Accessory Muscle Use, No Respiratory Distress, Normal Breath Sounds Cardiovascular: No Edema, No JVD, Regular Rate/Rhythm Breast Exam: Deferred Gastrointestinal: LLQ, LUQ, Soft, Suprapubic, Tenderness Genitalia: Deferred Pelvic: Deferred Rectal: Deferred Extremities: Normal inspection, Normal range of motion, Non-tender, No pedal ed ceci Neurologic: Alert, No Motor Deficits, Normal Affect, Normal Mood, No Sensory Deficits Cerebellar Function: NOT DONE Reflexes: NOT DONE Skin: Dry, Normal Color, Warm Lymphatic: NOT DONE Was a procedure done? Was a procedure done?: No EKG EKG : Comments Junctional tachycardia, rate 108, QRS prolonged at 122, QTC prolonged at 481, normal axis, right bundle-branch block and left posterior fascicular block, inferior and lateral T inversion with ST depression Differential Dx Considerations may include: UTI, gastroenteritis, colitis, diverticulitis, bowel obstruction, hypovolemia, electrolyte imbalance, sepsis, among others X-Ray, Labs, Meds, VS Vital Signs Date Time Temp Pulse Resp B/P (MAP) Pulse Ox O2 Delivery O2 Flow Rate FiO2 09/12/24 18:21 108 09/12/24 18:20 100.7 100 20 108/63 (78) 95 Lab Test 09/12/24 19:53 09/12/24 18:32 09/12/24 18:30 09/12/24 18:24 Range/Units Lactic Acid Level 1.7 0.4-2.0 mmol/L Troponin I High Sensitivity 982 *H 250 *H </=34 ng/L White Blood Count 6.4 4.4-10.8 10^3/uL Red Blood Count 4.47 4.0-5.20 10^6/uL Hemoglobin 13.6 12.2-16.2 g/dL Hematocrit 41.1 36.0-46.0 % Mean Corpuscular Volume 92.0 80.0-100.0 fL Mean Corpuscular Hemoglobin 30.5 28.0-32.0 pg Mean Corpuscular Hemoglobin Concent 33.1 32.0-36.0 g/dL Red Cell Distribution Width 14.3 11.8-14.3 % Platelet Count 156 140-450 10^3/uL Mean Platelet Volume 10.4 6.9-10.8 fL Neutrophils (%) (Auto) 86.3 H 37.0-80.0 % Lymphocytes (%) (Auto) 7.1 L 10.0-50.0 % Monocytes (%) (Auto) 5.7 0.0-12.0 % Eosinophils (%) (Auto) 0.6 0.0-7.0 % Basophils (%) (Auto) 0.3 0.0-2.0 % Neutrophils # (Auto) 5.5 1.6-8.6 10 ^3/uL Lymphocytes # (Auto) 0.5 0.4-5.4 10 ^3/uL Monocytes # (Auto) 0.4 0-1.3 10 ^3/uL Eosinophils # (Auto) 0 0-0.8 10 ^3/uL Basophils # (Auto) 0 0-0.2 10 ^3/uL Nucleated Red Blood Cells 0.0 % Sodium Level 139 136-145 mmol/L Potassium Level 3.6 3.5-5.1 mmol/L Chloride Level 105 98-107 mmol/L Carbon Dioxide Level 21 20-31 mmol/L Anion Gap 13 5-15 Blood Urea Nitrogen 29 H 9-23 mg/dL Creatinine 0.89 0.550-1.02 mg/dL Glomerular Filtration Rate Calc 67 >90 mL/min BUN/Creatinine Ratio 32.6 H 10.0-20.0 Serum Glucose 251 H 74-106 mg/dL Calcium Level 9.9 8.7-10.4 mg/dL B-Type Natriuretic Peptide 49.57 0-100 pg/mL Urine Color Colorless Yellow Urine Clarity Clear Clear Urine pH 5.0 5.0-9.0 Urine Specific [place] 1.019 1.001-1.035 Urine Protein Negative Negative Urine Ketones Negative Negative Urine Blood Trace H Negative /uL Urine Nitrite Negative Negative Urine Bilirubin Negative Negative Urine Urobilinogen Normal Negative mg/dL Urine Leukocyte Esterase 2+ Negative /uL Urine RBC 2 0 - 4 /hpf Urine WBC 82 0 - 5 /hpf Urine Squamous Epithelial Cells None seen <5 /hpf Urine Bacteria None seen None Seen /hpf Urine Glucose 4+ H Normal mg/dL POC Glucose 265 H 70-106 mg/dl PROCEDURE(s): CXRP - CHEST PORTABLE REASON: cp ORDER NUMBER(s): [id number], ACCESSION NUMBER(s): [id number] EXAMINATION: AP portable chest radiograph CLINICAL HISTORY: cp COMPARISON: XY CHEST PORTABLE on DOS: 04/17/23, CHEST PORTABLE on DOS: 11/26/22, CXRP on DOS: 11/26/22 TECHNIQUE: Portable AP upright view of the chest. FINDINGS: Sternal wire sutures in place Changes in the shoulder suggesting chronic rotator cuff tears. No dominant consolidations. The costophrenic angles are clear. No sizable pleural effusions or pneumothorax identified. The cardiomediastinal silhouette appears within normal limits given technique. IMPRESSION: 1. Negative AP chest. 2. Narrowing of the acromial humeral joint space bilaterally suggesting chronic rotator cuff tears. EDURE(s): ABPL - CT AB PEL WO CON-NO ORAL OR IV REASON: left sided and suprapubic abd pain, n/v ORDER NUMBER(s): [id number], ACCESSION NUMBER(s): [id number] Exam: CT CT AB PEL WO CON-NO ORAL OR IV History: left sided and suprapubic abd pain, n/v Comparison Study: None available at time of dictation. TECHNIQUE: Multidetector CT of the abdomen was performed from lung bases to pubic symphysis. Imaging was performed without IV contrast. Axial, coronal and sagittal multiplanar reformats were obtained from the axial data set by the te chnologist. Radiation Dose Information: CT Dose: CTDI volume is 16.21 mGy. Dose-length product is 852.49 mGy*cm FINDINGS: Evaluation of solid organs is limited due to lack of intravenous contrast use. Findings: Lung Bases: No acute or significant lung base finding. Normal heart size. No pleural or pericardial effusion. Liver: The liver is normal in size. No focal lesions. Gallbladder and Biliary Tree: Gallbladder has been surgically removed. Spleen: Unremarkable Pancreas: The pancreas is grossly normal in appearance. Adrenal Glands: Unremarkable Kidneys: Kidneys are grossly normal without calculi or hydronephrosis. Bladder: Grossly unremarkable for degree of distention. Bowel: The stomach is grossly normal in appearance. Small bowel and colon are normal in caliber and distribution. The appendix is not visualized; however, no secondary findings of acute appendicitis identified. Ascites: Absent Lymphadenopathy: No mesenteric, retroperitoneal or periportal lymphadenopathy. Abdominal Wall and Mesentery: Unremarkable. Vasculature: The visualized abdominal aorta is normal in size and caliber. Evaluation of abdominal and pelvic vessels is limited due to lack of intravenous contrast. Pelvic Organs: Unremarkable Musculoskeletal: No aggressive focal bony lesions, acute fractures or dislocation. Grade 2 anterior spondylolisthesis L4-5 Soft tissues: Unremarkable IMPRESSION: 1. Diverticulosis no findings to suggest diverticulitis. No free air no free fluid. 2. Grade 2 anterior spondylolisthesis L4-5 3. Status post cholecystectomy. Radiation optimization: All CT scans at this facility use at least one of these dose optimization techniques: automated exposure control mA and/or kV adjustment per patient size (includes targeted exams where dose is matched to clinical indication) or iterative reconstruction. X-Ray, Labs, Meds, VS Comment 79-year-old female with a history of CAD, hypertension, diabetes and hyperlipidemia complaining of abdominal pain, nausea, vomiting and dysuria Vitals remarkable for temperature 100.7, heart rate 108 Exam remarkable for moderate distress, tachycardia, left-sided abdominal and suprapubic tenderness to palpation CT abdomen and pelvis IMPRESSION: 1. Diverticulosis no findings to suggest diverticulitis. No free air no free f luid. 2. Grade 2 anterior spondylolisthesis L4-5 3. Status post cholecystectomy. Chest x-ray unremarkable CBC unremarkable, basic metabolic panel remarkable for BUN 29, glucose 251 Lactate and BNP normal UA abnormal consistent with UTI Serial troponins 250 and 982 Patient was initially treated with the following in the ED: 1 L 0.9 normal saline IV bolus, morphine 4 mg IV, Zofran 4 mg IV Prior to all studies being resulted, the patient stated she was feeling better and family took her home prior to completion of my evaluation and treatment. Patient's family was contacted by phone that patient's workup showed abnormal results and they should bring her back to the hospital for further treatment and admission. Time of 1ST Reevaluation: 19:00 Reevaluation 1ST: Unchanged Patient Education/Counseling: Diagnosis, Treatment, Prognosis Family Education/Counseling: Diagnosis, Treatment, Prognosis Additional Information - I reviewed the following notes from patient's past medical encounters:03/11/24 02/13/24 - The following tests were ordered, and results were reviewed by me: Labs, CT X- Ray, EKG, PHA - Additional information was gathered from interviewing the following independent Historian: Family - I reviewed and agreed with the following test results read by other provider: X-ray, CT - I discussed treatments and results with medical personnel and: (consultants, family) Departure 1 Departure Time of Disposition: 20:00 Impression: Primary Impression: Urinary tract infection Qualified Codes: N39.0 - Urinary tract infection, site not specified Additional Impression: Non-STEMI (non-ST elevated myocardial infarction) Disposition: 07 LEFT AWOL/ELOPED Condition: Fair Critical Care Note Critical Care Time?: No Stability Stability form required: No Heart Score Heart Score: Heart Score Response (Comments) Value History N/A 0 EKG N/A 0 Age N/A 0 Risk Factors N/A 0 Troponin N/A 0 Total 0 I personally scribed for DONA MIRELES MD ([email or web address]) on 09/12/24 at 18:44. Electronically submitted by Javier Crenshaw ([email or web address]). DONA MIRELES MD Sep 12, 2024 18:44
[2024-09-12] MEDS ORDERED: ONDANSETRON HCL 4 MG/2 ML VIAL IV ONE (18:45)
[2024-09-12] MEDS ORDERED: SODIUM CHLORIDE 0.9% 1,000 ML IV ONE (18:45)
[2024-09-12] MEDS ORDERED: MORPHINE SULFATE 4 MG/ML SYR/VIAL IV ONE (18:45)
[2024-09-12 19:06] LABS: Basophils # (auto) 0 10 ^3/uL (0-0.2); Basophils % (auto) 0.3 % (0.0-2.0); Eosinophils # (auto) 0 10 ^3/uL (0-0.8); Eosinophils % (auto) 0.6 % (0.0-7.0); Hematocrit 41.1 % (36.0-46.0); Hemoglobin 13.6 g/dL (12.2-16.2); Lymphocytes # (auto) 0.5 10 ^3/uL (0.4-5.4); Lymphocytes % (auto) 7.1 % (10.0-50.0); Mean Corpuscular Hemoglobin 30.5 pg (28.0-32.0); Mean Corpuscular Hgb Conc. 33.1 g/dL (32.0-36.0); Monocytes # (auto) 0.4 10 ^3/uL (0-1.3); Monocytes % (auto) 5.7 % (0.0-12.0); Neutrophils # (auto) 5.5 10 ^3/uL (1.6-8.6); Neutrophils % (auto) 86.3 % (37.0-80.0); Platelet Count (auto) 156 10^3/uL (140-450); Red Blood Cells 4.47 10^6/uL (4.0-5.20); Red Cell Distribution Width 14.3 % (11.8-14.3); White Blood Cell 6.4 10^3/uL (4.4-10.8)
[2024-09-12 19:14] LABS: Chloride 105 mmol/L (98-107); Potassium 3.6 mmol/L (3.5-5.1); Sodium 139 mmol/L (136-145)
[2024-09-12 19:14] LABS: Urine Bacteria None Seen /hpf (None Seen)
--- NOTE | 2024-09-12 19:14 | DVH ---
EXAMINATION: AP portable chest radiograph CLINICAL HISTORY: cp COMPARISON: XY CHEST PORTABLE on DOS: 04/17/23, CHEST PORTABLE on DOS: 11/26/22, CXRP on DOS: 11/26/22 TECHNIQUE: Portable AP upright view of the chest. FINDINGS: Sternal wire sutures in place Changes in the shoulder suggesting chronic rotator cuff tears. No dominant consolidations. The costophrenic angles are clear. No sizable pleural effusions or pneumo thorax identified. The cardiomediastinal silhouette appears within normal limits given technique. IMPRESSION: 1. Negative AP chest. 2. Narrowing of the acromial humeral joint space bilaterally suggesting chronic rotator cuff tears.
[2024-09-12 19:15] LABS: Anion Gap 13 (5-15); Carbon Dioxide 21 mmol/L (20-31)
[2024-09-12 19:16] LABS: Calcium 9.9 mg/dL (8.7-10.4)
[2024-09-12 19:21] LABS: BUN/Creatinine Ratio 32.6 (10.0-20.0); Blood Urea Nitrogen 29 mg/dL (9-23); Glucose 251 mg/dL (74-106)
[2024-09-12 19:32] LABS: Urine Blood TRACE /uL (Negative); Urine Clarity Clear (Clear); Urine Color Colorless (Yellow); Urine Protein, UAD Negative (Negative); Urine Specific Gravity 1.019 (1.001-1.035); Urine Urobilinogen Normal (Negative); Urine WBC 82 /hpf (0 - 5)
--- NOTE | 2024-09-12 19:54 | DVH ---
Exam: CT CT AB PEL WO CON-NO ORAL OR IV History: left sided and suprapubic abd pain, n/v Comparison Study: None available at time of dictation. TECHNIQUE: Multidetector CT of the abdomen was performed from lung bases to pubic symphysis. Imaging was performed without IV contrast. Axial, coronal and sagittal multiplanar reformats were obtained fr om the axial data set by the technologist. Radiation Dose Information: CT Dose: CTDI volume is 16.21 mGy. Dose-length product is 852.49 mGy*cm FINDINGS: Evaluation of solid organs is limited due to lack of intravenous contrast use. Findings: Lung Bases: No acute or significant lung base finding. Normal heart size. No pleural or pericardial effusion. Liver: The liver is normal in size. No focal lesions. Gallbladder and Biliary Tree: Gallbladder has been surgically removed. Spleen: Unremarkable Pancreas: The pancreas is grossly normal in appearance. Adrenal Glands: Unremarkable Kidneys: Kidneys are grossly normal without calculi or hydronephrosis. Bladder: Grossly unremarkable for degree of distention. Bowel: The stomach is grossly normal in appearance. Small bowel and colon are normal in caliber and d istribution. The appendix is not visualized; however, no secondary findings of acute appendicitis id entified. Ascites: Absent Lymphadenopathy: No mesenteric, retroperitoneal or periportal lymphadenopathy. Abdominal Wall and Mesentery: Unremarkable. Vasculature: The visualized abdominal aorta is normal in size and caliber. Evaluation of abdominal a nd pelvic vessels is limited due to lack of intravenous contrast. Pelvic Organs: Unremarkable Musculoskeletal: No aggressive focal bony lesions, acute fractures or dislocation. Grade 2 anterior s pondylolisthesis L4-5 Soft tissues: Unremarkable IMPRESSION: 1. Diverticulosis no findings to suggest diverticulitis. No free air no free fluid. 2. Grade 2 anterior spondylolisthesis L4-5 3. Status post cholecystectomy. Radiation optimization: All CT scans at this facility use at least one of these dose optimization nicolette hniques: automated exposure control mA and/or kV adjustment per patient size (includes targeted exam s where dose is matched to clinical indication) or iterative reconstruction.
== END 2024-09-12 20:27 | disposition left against medical advice (07) ==
LOC: ER 18:16
DX: I21.4 Non-ST elevation (NSTEMI) myocardial infarction (principal); N39.0 Urinary tract infection, site not specified; I10 Essential (primary) hypertension; K21.9 Gastro-esophageal reflux disease without esophagitis; K59.00 Constipation, unspecified; M19.90 Unspecified osteoarthritis, unspecified site; E78.5 Hyperlipidemia, unspecified; E11.9 Type 2 diabetes mellitus without complications; Z79.82 Long term (current) use of aspirin; Z79.84 Long term (current) use of oral hypoglycemic drugs; Z79.899 Other long term (current) drug therapy; Z86.73 Personal history of transient ischemic attack (TIA), and cerebral infarction without residual deficits; Z88.0 Allergy status to penicillin; Z90.49 Acquired absence of other specified parts of digestive tract; Z90.710 Acquired absence of both cervix and uterus; Z95.1 Presence of aortocoronary bypass graft
CPT/HCPCS: 36415; 71045; 74176; 80048; 81001; 82962; 83605; 83880; 84484; 85025; 93005

== ENCOUNTER 2024-09-12 22:00 | Inpatient (IN) | payer OTHER, MEDICAID ==
[~2024-09-12] VITALS: Ht 162.6 cm; Wt 74.1 kg
--- NOTE | 2024-09-12 22:27 | ED.PDOC ---
HPI Comments HPI from first visit on 09/12/2024: 79-year-old female with history of CAD, diabetes, hypertension and dyslipidemia brought in by daughter for evaluation of abdominal pain nausea and vomiting all day today. Patient also reports dysuria and subjective fever. She denies any current chest pain, shortness of breath or diarrhea. States she is constipated. Last bowel movement was yesterday. Patient also reports taking 1 sublingual nitroglycerin due to chest discomfort at home. HPI from second visit on 09/12/2024: Patient was seen here at this ER earlier in the day, but eloped due to feeling better. However, after patient left, her second troponin resulted and it was elevated from first troponin indicating cardiac damage. Patient was contacted via telephone by medical doctor nuclear medicine and asked to come back to this facility. Patient is denying any active chest pain at this time. Patient is alert and oriented x4. Chief Complaint: Abnormal LAB's Time Seen by MD: 22:19 Primary Care Provider: ALVA Giraldo Notes: Medications, Allergies Allergies: Coded Allergies: Penicillins (Verified Allergy, Unknown, 08/21/16) Home Meds Active Scripts Ondansetron Odt 4MG Tab (ZOFRAN PO) 4 Mg Tb, 4 MG PO Q8HR PRN, #14 TAB ODT TAB-DISSOLVE IN MOUTH, THEN SWALLOW Prov:AMY COPELAND MD 02/13/24 Dicyclomine Hcl (BENTYL CAPSULE) 10 Mg Cp, 1 CAP PO Q6HR PRN, #20 CAP 3 Refills Prov:AMY COPELAND MD 02/13/24 Meclizine HCl (Meclizine) 25 Mg Chw, 25 MG PO BIDPRN PRN for 30 Days, #60 CHW Prov:FLORI MACARIO [facility] 04/19/23 Reported Medications Hctz (Hydrochlorothiazide) 25 Mg Tab, 50 MG PO DAILY for EDEMA, TAB 09/20/22 Losartan Potassium (Losartan Potassium) 25 Mg Tab, 25 MG PO DAILY for HTN for 30 Days, MG 09/20/22 Sitagliptin Phosphate (Januvia) 100 Mg Tab, 1 TAB PO DAILY for DIABETES, #30 TAB 5 Refills 09/20/22 Atorvastatin Calcium (ATORVASTATIN CALCIUM) 10 Mg Tab, 1 TAB PO DAILY for HIGH CHOLESTEROL, #30 TAB 5 Refills 09/20/22 Aspirin (Aspir-Low) 81 Mg Tab, 81 MG PO DAILY for CAD, MG 09/20/22 Glimepiride (Glimepiride) 4 Mg Tab, 4 MG PO DAILY for DIABETES, MG 09/20/22 Metformin HCl (Metformin Hydrochloride) 1,000 Mg Tab, 1000 MG PO DAILY for DIABETES, TAB 09/20/22 Pantoprazole Sodium Sesquihydr (Pantoprazole Sodium) 40 Mg Tab, 20 MG PO BS for GERD, TAB 09/20/22 Information Source: Patient Mode of Arrival: Wheelchair Severity: Moderate Timing: Minutes Duration: Since onset Prehospital treatment: None Onset: At Rest Past Medical History PAST MEDICAL HISTORY: Anemia, Arthritis, CAD, CVA, DM, GERD, High Lipids, HTN Surgical History: CABG, Cholecystectomy, Hysterectomy CAPACITY PLANNER History: No Pertinent CAPACITY PLANNER History Family History Family History: Reviewed,noncontributory to illness, Unknown Social History Smoker: Non-Smoker Alcohol: Denies ETOH Use Drugs: Denies Drug Use Lives In: Home Constitutional: denies: chills, diaphoresis, fatigue, fever, malaise, sweats, weakness, others EENTM: denies: blurred vision, double vision, ear bleeding, ear discharge, ear drainage, ear pain, ear ringing, eye pain, eye redness, hearing loss, mouth pain, mouth swelling, nasal discharge, nose bleeding, nose congestion, nose pain, photophobia, tearing, throat pain, throat swelling, voice changes, others Respiratory: denies: cough, hemoptysis, orthopnea, SOB at rest, shortness of breath, SOB with excertion, stridor, wheezing, others Cardiovascular: reports: others (elevated troponin level ); denies: chest pain, dizzy spells, diaphoresis, Dyspnea on exertion, edema, irregular heart beat, left arm pain, lightheadedness, palpitations, PND, syncope Gastrointestinal: denies: abdomen distended, abdominal pain, blood streaked bowels, constipated, diarrhea, dysphagia, difficulty swallowing, hematemesis, melena, nausea, poor appetite, poor fluid intake, rectal bleeding, rectal pain, vomiting, others Genitourinary: denies: abnormal vagina bleeding, burning, dyspareunia, dysuria, flank pain, frequency, hematuria, incontinence, pain, , vagina discha rge, urgency, others Neurological: denies: dizziness, fainting, headache, left sided numbness, left sided weakness, numbness, paresthesia, pre-existing deficit, right sided numbness, right sided weakness, seizure, speech problems, tingling, tremors, weakness, others Musculoskeletal: denies: back pain, gout, joint pain, joint swelling, muscle pain, muscle stiffness, neck pain, others Integumetry: denies: bruises, change in color, change in hair/nails, dryness, laceration, lesions, lumps, rash, wounds, others Allergic/Immunocompromised: denies: Difficulty Healing, Frequent Infections, Hives, Itching, others Hematologic/Lymphatic: denies: anemia, blood clots, easy bleeding, easy bruising, swollen glands, others Endocrine: denies: excessive hunger, excessive sweating, excessive thirst, excessive urination, flushing, intolerance to cold, intolerance to heat, unexplained weight gain, unexplained weight loss, others Psychiatric: denies: anxiety, bipolar disorder, depression, hopeless, panic disorder, schizophrenia, sleepless, suicidal, others All Other Systems: Reviewed and Negative Physical Exam General Appearance: No Apparent Distress, Normal HEENT: Normal ENT Inspection, Pharynx Normal, TMs Normal Neck: Full Range of Motion, Non-Tender, Normal, Normal Inspection Respiratory: Chest Non-Tender, Lungs Clear, No Accessory Muscle Use, No Respiratory Distress, Normal Breath Sounds Cardiovascular: No Edema, No JVD, No Murmur, No Gallop, Normal Peripheral Pulses, Regular Rate/Rhythm Breast Exam: Deferred Gastrointestinal: No Organomegaly, Non Tender, No Pulsatile Mass, Normal Bowel Sounds, Soft Genitalia: Deferred Pelvic: Deferred Rectal: Deferred Extremities: No calf tenderness, Normal capillary refill, Normal inspection, Normal range of motion, Non-tender, No pedal edema Musculoskeletal : Apperance: Normal Neurologic: Alert, jewel hole driller II-XII nml as Tested, No Motor Deficits, Normal Affect, Normal Mood, No Sensory Deficits Cerebellar Function: Normal Reflexes: Normal Skin: Dry, Normal Color, Warm Lymphatic: No Adenopathy EKG EKG : Pulse Rate (adult): 75 Umpire: Normal Cardiac Rhythm: NSR Block: None Hypertrophy: None ST: Old, Ant Was a procedure done? Was a procedure done?: No CP Differential Dx Differential Diagnosis: MN Differential Diagnosis: Angina, Aortic dissection, Chest Wall Pain, Cholelithiasis, Costochondritis, Esophageal reflux/spasm, Gastritis, Myocardial Infarction, Pericarditis, Pneumonia, Pneumothorax, Pulmonary Embolus X-Ray, Labs, Meds, VS Vital Signs Date Time Temp Pulse Resp B/P (MAP) Pulse Ox O2 Delivery O2 Flow Rate FiO2 09/12/24 22:53 75 09/12/24 22:48 75 09/12/24 22:16 97.0 83 18 100/56 (71) 94 Lab Test 09/12/24 22:29 Range/Units Troponin I High Sensitivity 1168 *H </=34 ng/L Time of 1ST Reevaluation: 22:49 Reevaluation 1ST: Unchanged Patient Education/Counseling: Diagnosis, Treatment, Prognosis Family Education/Counseling: Diagnosis, Treatment, Prognosis Additional Information I reviewed the following notes from the pt's past medical encounters: Earlier chart from 09/12/2024 reviewed along with laboratory blood work that was done. The following tests were ordered, and results were reviewed by me: Troponin will be repeated. Chemistry and CBC panels held at this time. Additional information was gathered from interviewing the following independent historians: Family member with patient whom is translating from Haitian. I reviewed and agreed with the following test results read by other providers: Previous labs from visit today I discussed treatments and results with medical personnel and: (consultants, family) pt had upper abdominal, lower substernal pain, but denies chest pain, no back pain. she was called back because her trop came back elevate. pt has no discomfort now, including abdominal pain. however, she has NSTEMI and will need to be admitted Departure 1 Departure Time of Disposition: 22:52 Impression: Primary Impression: NSTEMI (non-ST elevated myocardial infarction) Disposition: 09 ADMITTED INPATIENT Admit to: ANA Condition: Serious Critical Care Note Critical Care Time?: Yes (45 min-critical care time only) Critical care comment: Due to the possibility of patient's condition deteriorating, the patient required my highest attention and readiness to intervene. i assessed the patient, reviewed his records, ordered the proper tests and treatments. i communicated with medical personnel, reassessed the patient for response to treatments. i formulated a care plan and provided the critical care that excluded any procedures Stability Stability form required: No Heart Score Heart Score: Heart Score Response (Comments) Value History Highly Suspicious 2 EKG Repolarization Disturb 1 Age >65 2 Risk Factors >3 or Hx ASHD 2 Troponin >3 x's Normal limit 2 Total 9 I personally scribed for RUPESH ACEVES MD ([email or web address]) on 09/12/24 at 22:26. Electronically submitted by Yony Mckee ([email or web address]). RUPESH ACEVES MD Sep 12, 2024 22:26
[2024-09-12] MEDS: ASPirin 325 MG TAB PO ONE (23:13)
[2024-09-12] MEDS ORDERED: DEXTROSE (50%) 50ML SYRG IV PRN (23:15)
[2024-09-12] MEDS ORDERED: NITROGLYCERIN 0.4 MG SL TAB SL PRN (23:15)
--- NOTE | 2024-09-12 23:44 | DVHHP2 ---
History of Present Illness Reason for Visit: Nausea and vomiting History of Present Illness 79-year-old female presents for evaluation of nausea and vomiting. Patient presented with complaints of nausea and vomiting had been ongoing for the past one day. She was seen in the emergency department early in the morning today and decided to leave AMA stating she felt better. Today she returns with complaints of nausea. Troponins have been elevated. Denies any chest pain or shortness for breath. No other acute complaints reported. Past Medical History Diabetes mellitus, CAD, anemia, dyslipidemia, hypertension CVA Past Surgical History CABG, cholecystectomy and hysterectomy Family History Noncontributory Smoke: No ALCOHOL: none Drugs: None Lives: with Family Review of Systems Review of Systems Review of systems are currently negative otherwise dressing HPI. Allergies: Coded Allergies: Penicillins (Verified Allergy, Unknown, 08/21/16) Medications Current Medications Medications Dose Ordered Sig/Sammy Route Start Time Stop Time Status Last Admin Dose Admin Nitroglycerin 0.4 mg Q5MINP PRN SL 09/12/24 23:15 Morphine Sulfate 2 mg Q30M PRN IV 09/12/24 23:15 Aspirin 162 mg DAILY PO 09/13/24 10:00 Diagnostic Test (Pha) 1 strip Q6HR 09/13/24 00:00 Insulin Human Regular Q6HR SC 09/13/24 00:00 Dextrose 50 ml UD PRN IV 09/12/24 23:15 Ondansetron HCl 4 mg Q4HP PRN IV 09/12/24 23:15 Exam Vital Signs Vital Signs Date Time Temp Pulse Resp B/P (MAP) Pulse Ox O2 Delivery O2 Flow Rate FiO2 09/12/24 22:53 75 09/12/24 22:50 Room Air* 0 21 09/12/24 22:16 97.0 18 100/56 (71) 94 Exam Gen: 79-year-old female in mild distress. Skin: Warm, dry, normal color and texture, no rash. HEENT: Normocephalic atraumatic, mucous membranes moist and pink. Neck: Cervical and supraclavicular nodes normal without enlargement, trachea is midline, thyroid gland is normal without masses. Pulmonary: Clear to auscultation and percussion bilaterally. Cardiac: Regular rate and rhythm. No murmur Abdomen: Soft, nontender, nondistended, bowel sounds present all 4 quadrants, no guarding, no rigidity, no organomegaly. Extremities: No cyanosis, clubbing, no edema Neuro: Cranial nerves II through XII grossly intact, normal affect and speech, no focal motor deficits. Labs/Xrays ORDERING PHYSICIAN: DONA MIRELES MD PROCEDURE(s): ABPL - CT AB PEL WO CON-NO ORAL OR IV REASON: left sided and suprapubic abd pain, n/v ORDER NUMBER(s): [id number], ACCESSION NUMBER(s): [id number] Exam: CT CT AB PEL WO CON-NO ORAL OR IV History: left sided and suprapubic abd pain, n/v Comparison Study: None available at time of dictation. TECHNIQUE: Multidetector CT of the abdomen was performed from lung bases to pubic symphysis. Imaging was performed without IV contrast. Axial, coronal and sagittal multiplanar reformats were obtained from the axial data set by the nicolette hnologist. Radiation Dose Information: CT Dose: CTDI volume is 16.21 mGy. Dose-length product is 852.49 mGy*cm FINDINGS: Evaluation of solid organs is limited due to lack of intravenous contrast use. Findings: Lung Bases: No acute or significant lung base finding. Normal heart size. No pleural or pericardial effusion. Liver: The liver is normal in size. No focal lesions. Gallbladder and Biliary Tree: Gallbladder has been surgically removed. Spleen: Unremarkable Pancreas: The pancreas is grossly normal in appearance. Adrenal Glands: Unremarkable Kidneys: Kidneys are grossly normal without calculi or hydronephrosis. Bladder: Grossly unremarkable for degree of distention. Bowel: The stomach is grossly normal in appearance. Small bowel and colon are normal in caliber and distribution. The appendix is not visualized; however, no secondary findings of acute appendicitis identified. Ascites: Absent Lymphadenopathy: No mesenteric, retroperitoneal or periportal lymphadenopathy. Abdominal Wall and Mesentery: Unremarkable. Vasculature: The visualized abdominal aorta is normal in size and caliber. Evaluation of abdominal and pelvic vessels is limited due to lack of intravenous contrast. Pelvic Organs: Unremarkable Musculoskeletal: No aggressive focal bony lesions, acute fractures or dislocation. Grade 2 anterior spondylolisthesis L4-5 Soft tissues: Unremarkable IMPRESSION: 1. Diverticulosis no findings to suggest diverticulitis. No free air no free fluid. 2. Grade 2 anterior spondylolisthesis L4-5 3. Status post cholecystectomy. Radiation optimization: All CT scans at this facility use at least one of these dose optimization techniques: automated exposure control mA and/or kV adjustment per patient size (includes targeted exams where dose is matched to clinical indication) or iterative reconstruction. ATED BY: LOIS ROBLEDO Jr., DO DICTATED DATE/TIME: 09/12/241951 SIGNED BY: LOIS ROBLEDO Jr., DO ORDERING PHYSICIAN: DONA MIRELES MD PROCEDURE(s): CXRP - CHEST PORTABLE REASON: cp ORDER NUMBER(s): [id number], ACCESSION NUMBER(s): [id number] EXAMINATION: AP portable chest radiograph CLINICAL HISTORY: cp COMPARISON: XY CHEST PORTABLE on DOS: 04/17/23, CHEST PORTABLE on DOS: 11/26/22, CXRP on DOS: 11/26/22 TECHNIQUE: Portable AP upright view of the chest. FINDINGS: Sternal wire sutures in place Changes in the shoulder suggesting chronic rotator cuff tears. No dominant consolidations. The costophrenic angles are clear. No sizable pleural effusions or pneumothorax identified. The cardiomediastinal silhouette appears within normal limits given technique. IMPRESSION: 1. Negative AP chest. 2. Narrowing of the acromial humeral joint space bilaterally suggesting chronic rotator cuff tears. Labs Test 09/12/24 23:25 Range/Units Assessment/Plan Assessment/Plan Assessment NSTEMI Diabetes mellitus Hypertension Plan Admit the patient to telemetry to the hospitalist Cardiology consultation Killianx NPO Continue treatment per orders. Plan discussed with: Patient My Orders Orders - PEDROLUKASHERLINDA AGACNP Procedure Category Date Status Time Admit ADMIT 09/12/24 Transmitted 23:09 Nitroglycerin PHA 09/12/24 In Process Sublingual (Ntrostat 23:15 Morphine Sulfate PHA 09/12/24 In Process Injection 23:15 Stat Ekg For Chest BETY 09/12/24 In Process Pain 23:09 Notify Md Of Changes BETY 09/12/24 In Process From Base 23:09 Seasonal Recruiter For BETY 09/12/24 In Process 24 Hours 23:09 Emergency Dysrhythmia BETY 09/12/24 In Process Protocol 23:09 Rhythm Strips Once BETY 09/12/24 In Process Every Shift 23:09 Oxygen By Nasal RT 09/12/24 Transmitted Cannula 23:09 * Cardiology Consult CONS 09/12/24 Transmitted 23:09 Aspirin Tablet PHA 09/13/24 In Process 10:00 Glucose Blood PHA 09/13/24 In Process (Accu-Chek Comfort 00:00 Insulin R (Human) PHA 09/13/24 In Process (Insulin R) 00:00 Dextrose 50% Syringe PHA 09/12/24 In Process 23:15 Ondansetron Hcl PHA 09/12/24 In Process (Zofran) 23:15 Complete Blood Count LAB 09/13/24 Verified 04:00 Comprehensive LAB 09/13/24 Verified Metabolic Panel 04:00 Npo (Nothing By DIET 09/13/24 Transmitted Mouth) Diet Breakfast Echo 2d Mode Cardiac US 09/12/24 Logged DOP 23:09 Condition: Fair BETY 09/12/24 In Process 23:09 Bedrest With Bathroom BETY 09/12/24 In Process Privileg 23:09 Date of Service: Sep 12, 2024 Billing Provider: LUKAS PEDRO Common Visit Codes: [id number] INP/OBS CARE (HIGH) LUKAS PEDRO Sep 12, 2024 23:44
[2024-09-12] MEDS: SODIUM CHLORIDE 0.9% 500 ML IV ONE (23:54)
[2024-09-13] MEDS: ENOXAPARIN SOD 100 MG/1 ML SYRINGE SC ONE
[2024-09-13] MEDS: ATORVASTATIN 20 MG TAB PO ONE
[2024-09-13] MEDS: InsuLIN REG 1unit/0.01ml Soln (100units/ml) SC SCH
[2024-09-13] MEDS: ACCU-CHEK COMFORT CURVE STRIP VI SCH (00:16)
[2024-09-13] MEDS: ONDANSETRON HCL 4 MG/2 ML VIAL IV PRN (06:20)
[2024-09-13] MEDS: MORPHINE SULFATE INJ 2 MG/ml SYRG IV PRN (06:21)
[2024-09-13 06:39] LABS: Basophils # (auto) 0 10 ^3/uL (0-0.2); Basophils % (auto) 0.3 % (0.0-2.0); Eosinophils # (auto) 0.1 10 ^3/uL (0-0.8); Eosinophils % (auto) 0.5 % (0.0-7.0); Hematocrit 35.8 % (36.0-46.0); Hemoglobin 12.2 g/dL (12.2-16.2); Lymphocytes # (auto) 2.1 10 ^3/uL (0.4-5.4); Lymphocytes % (auto) 18.4 % (10.0-50.0); Mean Corpuscular Hemoglobin 31.2 pg (28.0-32.0); Mean Corpuscular Volume 91.7 fL (80.0-100.0); Monocytes # (auto) 1.1 10 ^3/uL (0-1.3); Monocytes % (auto) 9.5 % (0.0-12.0); Neutrophils # (auto) 8.1 10 ^3/uL (1.6-8.6); Neutrophils % (auto) 71.3 % (37.0-80.0); Platelet Count (auto) 153 10^3/uL (140-450); White Blood Cell 11.3 10^3/uL (4.4-10.8)
--- NOTE | 2024-09-13 06:47 | ECG ---
[facility] Test Date: 2024-09-12 Test Time: 22:48:01 Pat Name: RAAD GUO [facility] Gender: F At Home Independent Call Center Agent: DANIKA : 1945 Requested By: RUPSEH ACEVES Order Number: [id number] Reading MD: Twin Valadez Measurements Intervals [place] Rate: 75 P: 47 SC: 170 QRS: 17 QRSD: 98 T: 117 QT: 443 QTc: 495 Interpretive Statements Sinus rhythm Anteroseptal infarct, old Abnormal T, consider ischemia, lateral leads Electronically Signed On 09-15-2024 16:12:34 PST by Twin Valadez Please click the below link to view image of tracing.
--- NOTE | 2024-09-13 06:48 | ECG ---
[facility] Test Date: 2024-09-13 Test Time: 06:38:45 Pat Name: RAAD GUO [facility] Quality Nurse: DANIKA : 1945 Requested By: RUPESH ACEVES Order Number: [id number] Reading MD: Twin Valadez Measurements Intervals [place] Rate: 54 P: 59 [place]: 178 QRS: 51 QRSD: 97 T: 63 QT: 611 QTc: 580 Interpretive Statements Sinus rhythm Prolonged QT interval Electronically Signed On 09-15-2024 16:13:03 PST by Twin Valadez Please click the below link to view image of tracing.
[2024-09-13 06:57] LABS: Alanine Aminotransferase 25 U/L (7-40); Alkaline Phosphatase 108 U/L (46-116); Anion Gap 10 (5-15); BUN/Creatinine Ratio 32.4 (10.0-20.0); Calcium 9.6 mg/dL (8.7-10.4); Carbon Dioxide 25 mmol/L (20-31); Sodium 143 mmol/L (136-145)
[2024-09-13 06:58] LABS: Albumin 3.7 g/dL (3.2-4.8); Aspartate Aminotransferase 27 U/L (13-40); Bilirubin, Total 0.8 mg/dL (0.2-1.0); Total Protein 6.7 g/dL (5.7-8.2)
[2024-09-13 06:59] LABS: Blood Urea Nitrogen 24 mg/dL (9-23); Chloride 108 mmol/L (98-107); Glucose 116 mg/dL (74-106); Potassium 3.4 mmol/L (3.5-5.1)
--- NOTE | 2024-09-13 07:25 | DVHPN2 ---
Progress Note - Dictate Date Seen: Sep 13, 2024 Medical Necessity Reason Pt with a Central, PICC or Fol: No vital signs Vital Sign Date Time Temp Pulse Resp B/P (MAP) Pulse Ox O2 Delivery O2 Flow Rate FiO2 09/13/24 06:47 60 11 109/45 (66) 99 09/12/24 23:00 98.0 98.0 09/12/24 22:50 Room Air* 0 21 Total Intake and Output 09/12/24 09/12/24 09/13/24 15:00 23:00 07:00 Intake Total 500 ml Balance 500 ml medications Current Medications Medications Dose Ordered Sig/Sammy Route Start Time Stop Time Status Last Admin Dose Admin Nitroglycerin 0.4 mg Q5MINP PRN SL 09/12/24 23:15 Morphine Sulfate 2 mg Q30M PRN IV 09/12/24 23:15 09/13/24 06:21 2 MG Aspirin 162 mg DAILY PO 09/13/24 10:00 Diagnostic Test (Pha) 1 strip Q6HR 09/13/24 00:00 09/13/24 05:38 1 STRIP Insulin Human Regular Q6HR SC 09/13/24 00:00 Dextrose 50 ml UD PRN IV 09/12/24 23:15 Ondansetron HCl 4 mg Q4HP PRN IV 09/12/24 23:15 09/13/24 06:20 4 MG objective General Appearance: alert, no distress HEENT: EOMI, PERRLA, normal external inspect of ears, no icterus, no nasal drainage Neck: no carotid bruit, no jugular venous distention (JVD), no lymphadenopathy Chest: normal thorax Respiratory: clear to auscultation, normal air movement Cardiovascular: regular rate and rhythm, no diastolic murmur, no jugular venous distention (JVD), no rub, no systolic murmur Abdominal: soft, no hepatomegaly, no mass, no splenomegaly, no tenderness Genitourinary: grossly normal external Musculoskeletal: no joint tenderness, no swelling Extremities: normal pulses, no calf tenderness, no clubbing, no cyanosis, no edema Skin: no bruising, no jaundice, no rash Neurological: alert, No focal deficit laboratory and microbiology Laboratory Tests 09/13/24 06:00 Test 09/13/24 06:00 Range/Units Serum Glucose 116 H 74-106 mg/dL Problem List 1. NSTEMI Monitor, cardiology consult, trend troponin, heparin gtt 2. CAD Monitor, cardiology consult, plan for possible angiogram 3. HLD Monitor, PPI 4. DM II & hyperglycemia Monitor, insulin ss 5. Hx CABG Monitor Assessment/Plan Subjective Patient is awake and alert. Objective Patient was admitted as an NSTEMI. Cardiology has been consulted. Patient was educated on possible heart Cath. Patient was initiated on a heparin drip. Plan Monitor EKG. Continue heparin drip. Possible heart Cath in a.m. Echocardiogram ordered. PPI. Plan discussed with: Patient, Other ANGELY SHERMAN NP Sep 13, 2024 07:25
[2024-09-13] MEDS ORDERED: HEPARIN SODIUM (PORCINE) 5000 UNITS/ML 1ML VIAL IV ONE (07:30)
[2024-09-13 08:03] LABS: INR 1.13 (0.9-1.15); Partial Thromboplastin Time 38.2 SEC (24.5-34.5); Prothrombin Time 11.9 sec (9.3-11.8)
[2024-09-13] MEDS: HEPARIN DRIP/D5W 100UNITS/ML 250 ML IV SCH (09:24)
[2024-09-13 09:57] VITALS: PULSE 60; RESP 16; O2SAT 97
--- NOTE | 2024-09-13 10:13 | DVHINCON2 ---
Date Seen: Sep 13, 2024 Referring Physician MATT Moura Reason for Consultation Elevated troponin History of Present Illness This is a 79-year-old Serbian-speaking female who presents to the emergency room with chief complaint of nausea, vomiting, chills, and back pain. Patient states that symptoms began at approximately 1:30 p.m. yesterday afternoon. She came to the emergency room for further evaluation. Initial twelve lead electrocardiogram reveals normal sinus rhythm with nonspecific ST depression to lateral leads. Initial troponin level of 1168ng/L with flat trend thereafter. Significant past medical history includes severe coronary artery disease status post quintuple vessel CABG in November 2022, hypertension, hyperlipidemia, type 2 diabetes mellitus, and obesity. The patient sees social work job titles Dr. Kenny in the outpatient setting. Past Medical History Past medical history reviewed. No other significant than mentioned above. Past Surgical History Cholecystectomy Family History: Diabetes mellitus G8 MOTHER, Hypertension G8 MOTHER, Family History Family history reviewed. Social History Denies the use of tobacco, alcohol or illicit drugs. Allergies: Coded Allergies: Penicillins (Verified Allergy, Unknown, 08/21/16) Home Meds Active Scripts Ondansetron Odt 4MG Tab (ZOFRAN PO) 4 Mg Tb, 4 MG PO Q8HR PRN, #14 TAB ODT TAB-DISSOLVE IN MOUTH, THEN SWALLOW Prov:AMY COPELAND MD 02/13/24 Dicyclomine Hcl (BENTYL CAPSULE) 10 Mg Cp, 1 CAP PO Q6HR PRN, #20 CAP 3 Refills Prov:AMY OCPELAND MD 02/13/24 Meclizine HCl (Meclizine) 25 Mg Chw, 25 MG PO BIDPRN PRN for 30 Days, #60 CHW Prov:FLORI [employer] 04/19/23 Reported Medications Hctz (Hydrochlorothiazide) 25 Mg Tab, 50 MG PO DAILY for EDEMA, TAB 09/20/22 Losartan Potassium (Losartan Potassium) 25 Mg Tab, 25 MG PO DAILY for HTN for 30 Days, MG 09/20/22 Sitagliptin Phosphate (Januvia) 100 Mg Tab, 1 TAB PO DAILY for DIABETES, #30 TAB 5 Refills 09/20/22 Atorvastatin Calcium (ATORVASTATIN CALCIUM) 10 Mg Tab, 1 TAB PO DAILY for HIGH CHOLESTEROL, #30 TAB 5 Refills 09/20/22 Aspirin (Aspir-Low) 81 Mg Tab, 81 MG PO DAILY for CAD, MG 09/20/22 Glimepiride (Glimepiride) 4 Mg Tab, 4 MG PO DAILY for DIABETES, MG 09/20/22 Metformin HCl (Metformin Hydrochloride) 1,000 Mg Tab, 1000 MG PO DAILY for DIABETES, TAB 09/20/22 Pantoprazole Sodium Sesquihydr (Pantoprazole Sodium) 40 Mg Tab, 20 MG PO BS for GERD, TAB 09/20/22 Home Meds Home medications reviewed. Current Medications Current Medications Medications (Trade) Dose Ordered Sig/Sammy Route PRN Reason Start Time Stop Time Status Last Admin Nitroglycerin (Ntrostat Sublingual) 0.4 mg Q5MINP PRN SL FOR CHEST PAIN 09/12/24 23:15 Morphine Sulfate 2 mg Q30M PRN IV FOR CHEST PAIN 09/12/24 23:15 09/13/24 06:21 Aspirin 162 mg DAILY PO 09/13/24 10:00 Diagnostic Test (Pha) (Accu-Chek Comfort Curve T) 1 strip Q6HR 09/13/24 00:00 09/13/24 05:38 Insulin Human Regular (InsuLIN R) Q6HR SC 09/13/24 00:00 Dextrose 50 ml UD PRN IV Blood Sugar LESS THAN 60 09/12/24 23:15 Ondansetron HCl (Zofran) 4 mg Q4HP PRN IV NAUSEA / VOMITING 09/12/24 23:15 09/13/24 06:20 Heparin Sodium/ Dextrose 250 ml @ 8 mls/hr Q24H IV 09/13/24 09:00 09/13/24 09:24 Review of Systems Constitutional: Chills, generalized weakness Ears, Nose, & Throat: No symptom reported Eyes: No symptom reported Neurological: No symptoms reported Pulmonary/Respiratory: No symptoms reported Cardiovascular: No symptom reported Gastrointestinal: Nausea, vomiting Genitourinary: No symptom reported Musculoskeletal: No symptom reported Skin: No symptom reported Psychiatric: No symptom reported Endocrine: No symptom reported Hematologic/Lymphatic: No symptom reported Vital Signs Vital Signs Date Time Temp Pulse Resp B/P (MAP) Pulse Ox O2 Delivery O2 Flow Rate FiO2 09/13/24 09:57 60 16 97 Room Air* 0 21 09/13/24 09:00 97.8 105/47 (66) 97.8 Physical Exam General Appearance: Cooperative. Well-developed. Well-nourished. No acute distress. Pulmonary/Respiratory: Clear, bilateral breaths sounds. Cardiovascular/Chest: Regular rate and rhythm. Peripheral Pulses: 2+ Radial (R). 2+ Radial (L). 2+ Pedal (R). 2+ Pedal (L) Abdominal Exam: Normal bowel sounds. Ankle Exam: Negative ankle edema Lower extremities: Negative lower extremity edema Neuro/Mental Status: A/OX4, coherent. Thoughts/Psych: Normal thought pattern. Appropriate mood and affect. Good judgment and insight. Appearance: No acute distress. Skin Exam: Normal inspection. Normal color. Warm and dry. Labs/Diagnostic Data Labs Test 09/13/24 06:00 09/13/24 05:36 09/13/24 01:29 Range/Units White Blood Count 11.3 #H 4.4-10.8 10^3/uL Red Blood Count 3.90 L 4.0-5.20 10^6/uL Hemoglobin 12.2 12.2-16.2 g/dL Hematocrit 35.8 #L 36.0-46.0 % Mean Corpuscular Volume 91.7 80.0-100.0 fL Mean Corpuscular Hemoglobin 31.2 28.0-32.0 pg Mean Corpuscular Hemoglobin Concent 34.0 32.0-36.0 g/dL Red Cell Distribution Width 14.0 11.8-14.3 % Platelet Count 153 140-450 10^3/uL Mean Platelet Volume 9.8 6.9-10.8 fL Neutrophils (%) (Auto) 71.3 37.0-80.0 % Lymphocytes (%) (Auto) 18.4 10.0-50.0 % Monocytes (%) (Auto) 9.5 0.0-12.0 % Eosinophils (%) (Auto) 0.5 0.0-7.0 % Basophils (%) (Auto) 0.3 0.0-2.0 % Neutrophils # (Auto) 8.1 1.6-8.6 10 ^3/uL Lymphocytes # (Auto) 2.1 0.4-5.4 10 ^3/uL Monocytes # (Auto) 1.1 0-1.3 10 ^3/uL Eosinophils # (Auto) 0.1 0-0.8 10 ^3/uL Basophils # (Auto) 0 0-0.2 10 ^3/uL Nucleated Red Blood Cells 0.0 % Prothrombin Time 11.9 H 9.3-11.8 sec Prothrombin Time INR 1.13 0.9-1.15 Activated Partial Thromboplast Time 38.2 H 24.5-34.5 SEC Sodium Level 143 136-145 mmol/L Potassium Level 3.4 L 3.5-5.1 mmol/L Chloride Level 108 H 98-107 mmol/L Carbon Dioxide Level 25 20-31 mmol/L Anion Gap 10 5-15 Blood Urea Nitrogen 24 H 9-23 mg/dL Creatinine 0.74 0.550-1.02 mg/dL Glomerular Filtration Rate Calc 83 >90 mL/min BUN/Creatinine Ratio 32.4 H 10.0-20.0 Serum Glucose 116 H 74-106 mg/dL Calcium Level 9.6 8.7-10.4 mg/dL Total Bilirubin 0.8 0.2-1.0 mg/dL Aspartate Amino Transferase (AST) 27 13-40 U/L Alanine Aminotransferase (ALT) 25 7-40 U/L Alkaline Phosphatase 108 46-116 U/L Total Protein 6.7 5.7-8.2 g/dL Albumin 3.7 3.2-4.8 g/dL POC Glucose 135 H 70-106 mg/dl Troponin I High Sensitivity 1287 *H </=34 ng/L Assessment NSTEMI, rule out progressive coronary artery disease Severe coronary artery disease status post quintuple vessel CABG (on Aspirin) Rule out structural heart disease Hypertension Hyperlipidemia Type 2 diabetes mellitus, uncontrolled (Hgb A1c 8.3%) Obesity Plan/Recommendation We will continue with the following plan/recommendations (Dr. Kenny): * Echocardiogram to evaluate cardiac function * Chest pain protocol * LATHA score: 5 points * HEART score: 8 points (high score) * Continue heparin drip per pharmacy protocol * Lipid-lowering agent Patient seen and examined at bedside with . Given the patient's clinical presentation, significant cardiac history, and elevated troponin level, we will recommend for the patient to undergo a coronary angiogram with left heart catheterization. The procedure was discussed with the patient full detail including risks and benefits. Risks include but are not limited to bleeding, contrast induced nephropathy, stroke, and even . Patient is concerned about possible risks. The patient mentions that she knows someone who had major complications after the angiogram and at this time is declining procedure. Patient would like to discuss procedure with her son before making a final decision. We will tentatively schedule the patient for a coronary angiogram with left heart catheterization on 09/14/24. Thank you for allowing us to care for this patient. Please call with any questions or concerns. Critical care time spent: 44 minutes This medical document was created using an electronic medical record system with voice recognition software and computerized dictation system. Although this document has been carefully reviewed, there might still be some phonetic and typographical errors. Occasional wrong-word or ``sound-alike substitutions may have occurred due to the inherent limitations of voice recognition software. These areas are purely typographical due to imperfections of the software programs and do not reflect any compromise in the patient's medical care. Please read the chart carefully and recognize, using context, where these substitutions have occurred. Plan discussed with: Patient Date of Service: Sep 13, 2024 Billing Provider: OMARI KENNY MD Cardiology Common Codes: 77550-HMBSPEM INP/OBS CARE (High) Cardiology Consultation Codes: 79672-[id number] CONSULT <45MIN RADHA TAVERA Sep 13, 2024 10:13
[2024-09-13] MEDS: ASPirin 81 mg TAB PO SCH (10:15)
--- NOTE | 2024-09-13 10:26 | DVHINCON2 ---
Date of service: Sep 13, 2024 Referring Physician Britney Sheikh NP Reason for Consultation Elevated troponin with h/o CABG 2022. History of Present Illness Sapphire Logan is a Mexican speaking 79 y/o Female with h/o CABG (2022), Anemia, Arthritis, CAD, CVA, DM, GERD, hyperlipidemia, hypertension, cholecystectomy, and hysterectomy, who presented to the ED with c/o Abdominal pain with n/v x 1 day. She endorsed subjective fever as well as dysuria and constipation. Pt also reports having had some chest pain at home for which she took nitro and had resolution of the chest pain prior to arrival in the ED. Pt underwent labs with initial troponin of 250, but eloped due to feeling better. The repeat troponin level was resulted at 982 therefore patient was contacted and ask to Return to the hospital for further workup and treatment. Troponin was trended further showing continued increase as follows: 250 - 982 - 1168 - 1287. Review of hospital records shows that patient was previously seen here last year for elevated troponin levels (similar to present) and was transferred to [facility] for CABG in Nov 2022. Cardiology is consulted for evaluation and management of NSTEMI. Pt endorses compliance with prescribed ASA, statin, losartan. She states she continues to see cardiology but has transferred through many offices in the past few years (Rory Reyes, [place], unsure of remainder per patient). K 3.4 BUN 24 Creat 0.74 WBC 11.3 Hgb 12.2 HS troponin 250 - 982 - 1168 - 1287 EKG normal sinus rhythm at 54 bpm with prolonged QTc 580ms ECHO pending Past Medical History see HPI Family History: Diabetes mellitus G8 MOTHER, Hypertension G8 MOTHER, Allergies: Coded Allergies: Penicillins (Verified Allergy, Unknown, 08/21/16) Home Meds Reported Medications Losartan Potassium (Losartan Potassium) 50 Mg Tab, 1 TAB PO DAILY for 30 Days, #30 09/15/24 Atorvastatin Calcium (Lipitor) 20 Mg Tab, 1 TAB PO DAILY for 90 Days, #09/15/24 Empagliflozin (Jardiance) 25 Mg Tab, 1 TAB PO DAILY for 85 Days, #85 09/15/24 Alogliptin Benzoate (Alogliptin) 25 Mg Tab, 1 TAB PO DAILY for 90 Days, #09/15/24 Trazodone Hcl (Trazodone Hcl) 50 Mg Tab, 1 TAB PO DAILY for 90 Days, #90 09/15/24 Omeprazole (Omeprazole) 20 Mg Cap, 40 MG PO DAILY for 30 Days, #30 09/15/24 Diclofenac Sodium (Actinic Ker (Diclofenac Sodium) 3 % Gel, 1 APPLIC TD BID for 30 Days, #100 09/15/24 Semaglutide (Ozempic) 2 Mg/3 Ml Inj, 0.5 MG SC QWEEKLY for 28 Days, #3 09/15/24 Aspirin (Aspir-Low) 81 Mg Tab, 81 MG PO DAILY for CAD, MG 09/20/22 Glimepiride (Glimepiride) 4 Mg Tab, 4 MG PO DAILY for DIABETES, MG 09/20/22 Discontinued Reported Medications Losartan Potassium (Losartan Potassium) 25 Mg Tab, 25 MG PO DAILY for HTN for 30 Days, MG 09/20/22 Atorvastatin Calcium (ATORVASTATIN CALCIUM) 10 Mg Tab, 1 TAB PO DAILY for HIGH CHOLESTEROL, #30 TAB 5 Refills 09/20/22 Sitagliptin Phosphate (Januvia) 100 Mg Tab, 1 TAB PO DAILY for DIABETES, #30 TAB 5 Refills 09/20/22 Metformin HCl (Metformin Hydrochloride) 1,000 Mg Tab, 1000 MG PO DAILY for DIABETES, TAB 09/20/22 Current Medications Current Medications Medications (Trade) Dose Ordered Sig/Sammy Route PRN Reason Start Time Stop Time Status Last Admin Nitroglycerin (Ntrostat Sublingual) 0.4 mg Q5MINP PRN SL FOR CHEST PAIN 09/12/24 23:15 Morphine Sulfate 2 mg Q30M PRN IV FOR CHEST PAIN 09/12/24 23:15 09/13/24 06:21 Aspirin 162 mg DAILY PO 09/13/24 10:00 Diagnostic Test (Pha) (Accu-Chek Comfort Curve T) 1 strip Q6HR 09/13/24 00:00 09/13/24 05:38 Insulin Human Regular (InsuLIN R) Q6HR SC 09/13/24 00:00 Dextrose 50 ml UD PRN IV Blood Sugar LESS THAN 60 09/12/24 23:15 Ondansetron HCl (Zofran) 4 mg Q4HP PRN IV NAUSEA / VOMITING 09/12/24 23:15 09/13/24 06:20 Heparin Sodium/ Dextrose 250 ml @ 8 mls/hr Q24H IV 09/13/24 09:00 09/13/24 09:24 Review of Systems See HPI Vital Signs Vital Signs Date Time Temp Pulse Resp B/P (MAP) Pulse Ox O2 Delivery O2 Flow Rate FiO2 09/13/24 09:57 60 16 97 Room Air* 0 21 09/13/24 09:00 97.8 105/47 (66) 97.8 Labs/Diagnostic Data Labs Test 09/13/24 06:00 09/13/24 05:36 09/13/24 01:29 Range/Units White Blood Count 11.3 #H 4.4-10.8 10^3/uL Red Blood Count 3.90 L 4.0-5.20 10^6/uL Hemoglobin 12.2 12.2-16.2 g/dL Hematocrit 35.8 #L 36.0-46.0 % Mean Corpuscular Volume 91.7 80.0-100.0 fL Mean Corpuscular Hemoglobin 31.2 28.0-32.0 pg Mean Corpuscular Hemoglobin Concent 34.0 32.0-36.0 g/dL Red Cell Distribution Width 14.0 11.8-14.3 % Platelet Count 153 140-450 10^3/uL Mean Platelet Volume 9.8 6.9-10.8 fL Neutrophils (%) (Auto) 71.3 37.0-80.0 % Lymphocytes (%) (Auto) 18.4 10.0-50.0 % Monocytes (%) (Auto) 9.5 0.0-12.0 % Eosinophils (%) (Auto) 0.5 0.0-7.0 % Basophils (%) (Auto) 0.3 0.0-2.0 % Neutrophils # (Auto) 8.1 1.6-8.6 10 ^3/uL Lymphocytes # (Auto) 2.1 0.4-5.4 10 ^3/uL Monocytes # (Auto) 1.1 0-1.3 10 ^3/uL Eosinophils # (Auto) 0.1 0-0.8 10 ^3/uL Basophils # (Auto) 0 0-0.2 10 ^3/uL Nucleated Red Blood Cells 0.0 % Prothrombin Time 11.9 H 9.3-11.8 sec Prothrombin Time INR 1.13 0.9-1.15 Activated Partial Thromboplast Time 38.2 H 24.5-34.5 SEC Sodium Level 143 136-145 mmol/L Potassium Level 3.4 L 3.5-5.1 mmol/L Chloride Level 108 H 98-107 mmol/L Carbon Dioxide Level 25 20-31 mmol/L Anion Gap 10 5-15 Blood Urea Nitrogen 24 H 9-23 mg/dL Creatinine 0.74 0.550-1.02 mg/dL Glomerular Filtration Rate Calc 83 >90 mL/min BUN/Creatinine Ratio 32.4 H 10.0-20.0 Serum Glucose 116 H 74-106 mg/dL Calcium Level 9.6 8.7-10.4 mg/dL Total Bilirubin 0.8 0.2-1.0 mg/dL Aspartate Amino Transferase (AST) 27 13-40 U/L Alanine Aminotransferase (ALT) 25 7-40 U/L Alkaline Phosphatase 108 46-116 U/L Total Protein 6.7 5.7-8.2 g/dL Albumin 3.7 3.2-4.8 g/dL POC Glucose 135 H 70-106 mg/dl Troponin I High Sensitivity 1287 *H </=34 ng/L Plan/Recommendation 79 y/o Female with h/o CABG (2022), Anemia, Arthritis, CAD, CVA, DM, GERD, hyperlipidemia, hypertension, cholecystectomy, and hysterectomy, who presented to the ED with c/o Abdominal pain with n/v x 1 day. She endorsed subjective fever as well as dysuria and constipation. Pt also reports having had some chest pain at home for which she took nitro and had resolution of the chest pain prior to arrival in the ED. Pt underwent labs with initial troponin of 250, but eloped due to feeling better. The repeat troponin level was resulted at 982 therefore patient was contacted and ask to Return to the hospital for further workup and treatment. Troponin was trended further showing continued increase as follows: 250 - 982 - 1168 - 1287. Review of hospital records shows that patient was previously seen here last year for elevated troponin levels (similar to present) and was transferred to [facility] for CABG in Nov 2022. Cardiology is consulted for evaluation and management of NSTEMI. Pt endorses compliance with prescribed ASA, statin, losartan. She states she continues to see cardiology but has transferred through many offices in the past few years (Rory Reyes Mehta, unsure of remainder per patient). K 3.4 BUN 24 Creat 0.74 WBC 11.3 Hgb 12.2 HS troponin 250 - 982 - 1168 - 1287 EKG normal sinus rhythm at 54 bpm with prolonged QTc 580ms ECHO 07/10/23 <Conclusion>: Preserved left ventricular systolic function estimate ejection fraction of 55%. There is a concentric left ventricular hypertrophy of mild degree. There is a grade 1 diastolic dysfunction. Normal RV size and dimension. Normal RV systolic function with estimated pressure of 25 mmHg. Normal biatrial size and dimension. Aortic valve is mildly thickened there is mild aortic valve regurgitation. Mitral valve appears normal structure and function. The tricuspid valve is normal structure and function. The pulmonary valve is normal structure and function. No pericardial effusion. General: No acute distress. Awake and conversant. Mexican speaking. Neck: Neck is supple. No masses or thyromegaly, no JVD, No carotid bruit. Respiratory: Respirations are non-labored. Lungs are clear to auscultation. Skin: Warm. CV: RRR, Normal heart sounds, no murmurs. No lower extremity edema. Neuro: AAo x 4 79 y/o Female with h/o CABG (2022), Anemia, Arthritis, CAD, CVA, DM, GERD, hyperlipidemia, hypertension, cholecystectomy, and hysterectomy, who presented to the ED with c/o Abdominal pain with n/v x 1 day was found to have elevated troponin levels > 1000. Assessments: NSTEMI h/o CABG 2022 DM2 hyperlipidemia hypertension Cardiac recommendations: Pt with NSTEMI and troponin > 1000. - Continue to trend - Dr Baca consulted for LHC for further evaluation - Pt denies current CP but took nitro at home for chest pain [employer] - Discussed need for LHC with patient and family (daughter at bedside and son over the phone). Pt was initially declining intervention due to having a "friend" that told her she had a cath done and had internal bleeding as a result. Risks, benefits and alternatives discussed at length with all parties. After long discussion, decision was made to proceed with LHC, planned for 09/14/24. ASA 81mg daily Heparin gtt infusing Statin Home losartan not yet resumed due to marginal BP. Resume once hemodynamically improved NO BBlocker at this time due to prolonged QTc and bradycardia with HR in range of 50s. LDL and A1C requested. Cardiac monitoring Ongoing rate and rhythm surveillance Hemodynamic monitoring. Avoid hypertension and hypotension. Monitor and maintain electrolytes and renal function. Supplement as needed to maintain K > 4.0 and Mg > 2.0. Monitor Hgb and transfuse if Hgb < 7.0. Lifestyle and risk modification counseling All available labs, EKGs, and images were personally reviewed Patient's status, findings, and plan of care was discussed and reviewed with supervising physician Dr. iPna, who is in agreement with current plan of care. Plan of care discussed with and agreed upon by the patient/family/Primary RN. Prognosis: Guarded Thank you for allowing me to participate in the care of this patient. Further recommendations will depend on clinical progression, hospitalist, and other consultants. Will continue to follow with Primary. If you have any questions, please do not hesitate to contact me. A total of 75 minutes was spent reviewing the patient record, examining the patient, making a diagnostic and therapeutic plan, discussing this plan with medical personnel, following up on diagnostic studies and following the patient for clinical stability including any and all procedures. At least 50% of this time was spent in direct, [id number] contact. Plan discussed with: Patient, Other (RN) Provider Statement: I have reviewed the case with my supervising physician. We have agreed with the plan of care. ARMIN SHI Sep 13, 2024 10:26
[2024-09-13 11:18] LABS: Triglycerides 102 mg/dL (< 150)
[2024-09-13 11:19] LABS: LDL Cholesterol 73 mg/dL (< 100)
[2024-09-13 11:20] LABS: Cholesterol 136 mg/dL (< 200); HDL Cholesterol 43 mg/dL (40-59)
[2024-09-13] MEDS: POTASSIUM CHL 20MEQ/100ML 100 ML IV SCH (12:44)
[2024-09-13 18:28] VITALS: BP_SYST 118; BP_SYST 125; BP_DIAS 38; BP_DIAS 42; PULSE 69; PULSE 88; RESP 18; TEMP 98.2; TEMP 98.9; O2SAT 91; O2SAT 95
[2024-09-13 19:26] LABS: INR 1.06 (0.9-1.15); Partial Thromboplastin Time 41.8 SEC (24.5-34.5); Prothrombin Time 11.2 sec (9.3-11.8)
[2024-09-13 20:00] VITALS: PULSE 84; PULSE 90; RESP 18; O2SAT 93
[2024-09-13 21:00] VITALS: BP 130/43; PULSE 84; RESP 18; TEMP 98.2; O2SAT 93
[2024-09-13] MEDS: ATORVASTATIN 20 MG TAB PO SCH (22:16)
[2024-09-14] VITALS (11 sets, daily range): BP systolic 98–148; BP diastolic 44–67; PULSE 69–94; RESP 12–20; TEMP 97.8–100.3; O2SAT 93–98
[2024-09-14 06:43] LABS: INR 1.06 (0.9-1.15); Partial Thromboplastin Time 58.7 SEC (24.5-34.5); Prothrombin Time 11.2 sec (9.3-11.8)
[2024-09-14 06:44] LABS: Chloride 107 mmol/L (98-107); Potassium 3.9 mmol/L (3.5-5.1); Sodium 141 mmol/L (136-145)
[2024-09-14 06:45] LABS: Anion Gap 14 (5-15); Basophils # (auto) 0 10 ^3/uL (0-0.2); Basophils % (auto) 0.5 % (0.0-2.0); Carbon Dioxide 20 mmol/L (20-31); Eosinophils # (auto) 0.1 10 ^3/uL (0-0.8); Eosinophils % (auto) 0.8 % (0.0-7.0); Hematocrit 39.9 % (36.0-46.0); Hemoglobin 13.3 g/dL (12.2-16.2); Lymphocytes # (auto) 1.4 10 ^3/uL (0.4-5.4); Lymphocytes % (auto) 16.3 % (10.0-50.0); Mean Corpuscular Hemoglobin 31.1 pg (28.0-32.0); Mean Corpuscular Hgb Conc. 33.4 g/dL (32.0-36.0); Mean Corpuscular Volume 93.1 fL (80.0-100.0); Monocytes # (auto) 0.9 10 ^3/uL (0-1.3); Monocytes % (auto) 11.1 % (0.0-12.0); Neutrophils # (auto) 5.9 10 ^3/uL (1.6-8.6); Neutrophils % (auto) 71.3 % (37.0-80.0); Nucleated Red Blood Cells % 0.1 %; Platelet Count (auto) 176 10^3/uL (140-450); Red Blood Cells 4.29 10^6/uL (4.0-5.20); Red Cell Distribution Width 14.4 % (11.8-14.3); White Blood Cell 8.3 10^3/uL (4.4-10.8)
[2024-09-14 06:46] LABS: Calcium 10.1 mg/dL (8.7-10.4)
[2024-09-14 06:50] LABS: BUN/Creatinine Ratio 25.7 (10.0-20.0); Blood Urea Nitrogen 19 mg/dL (9-23); Glucose 159 mg/dL (74-106)
[2024-09-14] MEDS: IODIXANOL 320MG/ML 100ML BTL IV ONE ×2 (08:01→10:29)
[2024-09-14] MEDS: HEPARIN IN NS 1000Units/500mL 1,500 ML ONE (08:01)
--- NOTE | 2024-09-14 08:10 | DVHPN2 ---
Progress Note - Dictate Date Seen: Sep 14, 2024 Medical Necessity Reason Pt with a Central, PICC or Fol: No Subjective Pt is off unit currently to cath labs with Dr Baca. Chart reviewed. vital signs Vital Sign Date Time Temp Pulse Resp B/P (MAP) Pulse Ox O2 Delivery O2 Flow Rate FiO2 09/14/24 07:45 Room Air* 0 21 09/14/24 05:00 98.2 87 18 140/44 (76) 93 98.2 Total Intake and Output 09/13/24 09/13/24 09/14/24 15:00 23:00 07:00 Intake Total 140 ml 124 ml 0 ml Balance 140 ml 124 ml 0 ml medications Current Medications Medications Dose Ordered Sig/Sammy Route Start Time Stop Time Status Last Admin Dose Admin Nitroglycerin 0.4 mg Q5MINP PRN SL 09/12/24 23:15 Morphine Sulfate 2 mg Q30M PRN IV 09/12/24 23:15 09/13/24 06:21 2 MG Diagnostic Test (Pha) 1 strip Q6HR 09/13/24 00:00 09/14/24 05:26 1 STRIP Insulin Human Regular Q6HR SC 09/13/24 00:00 09/14/24 05:27 3 UNITS Dextrose 50 ml UD PRN IV 09/12/24 23:15 Ondansetron HCl 4 mg Q4HP PRN IV 09/12/24 23:15 09/13/24 06:20 4 MG Heparin Sodium/ Dextrose 250 ml @ 10 mls/hr Q24H IV 09/13/24 09:00 09/14/24 00:16 10 MLS/HR Atorvastatin Calcium 40 mg HS PO 09/13/24 22:00 09/13/24 22:16 40 MG Aspirin 81 mg DAILY PO 09/14/24 10:00 laboratory and microbiology Laboratory Tests 09/14/24 05:33 Test 09/14/24 05:33 Range/Units Serum Glucose 159 H 74-106 mg/dL Assessment/Plan 79 y/o Female with h/o CABG (2022), Anemia, Arthritis, CAD, CVA, DM, GERD, hyperlipidemia, hypertension, cholecystectomy, and hysterectomy, who presented to the ED with c/o Abdominal pain with n/v x 1 day. She endorsed subjective fever as well as dysuria and constipation. Pt also reports having had some chest pain at home for which she took nitro and had resolution of the chest pain prior to arrival in the ED. Pt underwent labs with initial troponin of 250, but eloped due to feeling better. The repeat troponin level was resulted at 982 therefore patient was contacted and ask to Return to the hospital for further workup and treatment. Troponin was trended further showing continued increase as follows: 250 - 982 - 1168 - 1287. Review of hospital records shows that patient was previously seen here last year for elevated troponin levels (similar to present) and was transferred to [facility] for CABG in Nov 2022. Cardiology is consulted for evaluation and management of NSTEMI. Pt endorses compliance with prescribed ASA, statin, losartan. She states she continues to see cardiology but has transferred through many offices in the past few years (Rory Reyes Mehta, unsure of remainder per patient). K 3.4 - 3.9 BUN 24 Creat 0.74 - 0.74 WBC 11.3 Hgb 12.2 - 13.3 HS troponin 250 - 982 - 1168 - 1287 EKG normal sinus rhythm at 54 bpm with prolonged QTc 580ms ECHO 07/10/23 <Conclusion>: Preserved left ventricular systolic function estimate ejection fraction of 55%. There is a concentric left ventricular hypertrophy of mild degree. There is a grade 1 diastolic dysfunction. Normal RV size and dimension. Normal RV systolic function with estimated pressure of 25 mmHg. Normal biatrial size and dimension. Aortic valve is mildly thickened there is mild aortic valve regurgitation. Mitral valve appears normal structure and function. The tricuspid valve is normal structure and function. The pulmonary valve is normal structure and function. No pericardial effusion. General: No acute distress. Awake and conversant. Irish speaking. Neck: Neck is supple. No masses or thyromegaly, no JVD, No carotid bruit. Respiratory: Respirations are non-labored. Lungs are clear to auscultation. Skin: Warm. CV: RRR, Normal heart sounds, no murmurs. No lower extremity edema. Neuro: AAo x 4 79 y/o Female with h/o CABG (2022), Anemia, Arthritis, CAD, CVA, DM, GERD, hyperlipidemia, hypertension, cholecystectomy, and hysterectomy, who presented to the ED with c/o Abdominal pain with n/v x 1 day was found to have elevated troponin levels > 1000. Assessments: NSTEMI h/o CABG 2022 Uncontrolled DM2 hyperlipidemia hypertension Cardiac recommendations: ECHO requested with report pending Pt with NSTEMI and troponin > 1000. - Continue to trend - Dr Baca consulted for C for further evaluation - Pt denies current CP but took nitro at home for chest pain MAIL WEIGHER - Discussed need for LHC with patient and family (daughter at bedside and son over the phone). Pt was initially declining intervention due to having a "friend" that told her she had a cath done and had internal bleeding as a result. Risks, benefits and alternatives discussed at length with all parties. After long discussion, decision was made to proceed with LHC, planned for 09/14/24. ASA 81mg daily Heparin gtt infusing Atorvastatin 40mg daily Home losartan not yet resumed due to marginal BP. Resume once hemodynamically improved NO BBlocker at this time due to prolonged QTc and bradycardia with HR in range of 50s. LDL and A1C requested. - LDL 73 - A1C 10.1 (uncontrolled DM) Cardiac monitoring Ongoing rate and rhythm surveillance Hemodynamic monitoring. Avoid hypertension and hypotension. Monitor and maintain electrolytes and renal function. Supplement as needed to maintain K > 4.0 and Mg > 2.0. Monitor Hgb and transfuse if Hgb < 7.0. Lifestyle and risk modification counseling All available labs, EKGs, and images were personally reviewed Patient's status, findings, and plan of care was discussed and reviewed with supervising physician Dr. Pina, who is in agreement with current plan of care. Plan of care discussed with and agreed upon by the patient/family/Primary RN. Prognosis: Guarded Thank you for allowing me to participate in the care of this patient. Further recommendations will depend on clinical progression, hospitalist, and other consultants. Will continue to follow with Primary. If you have any questions, please do not hesitate to contact me. A total of 55 minutes was spent reviewing the patient record, examining the patient, making a diagnostic and therapeutic plan, discussing this plan with medical personnel, following up on diagnostic studies and following the patient for clinical stability including any and all procedures. At least 50% of this time was spent in direct, [id number] contact. Plan discussed with: Other (RN) Provider Statement: I have reviewed the case with my supervising physician. We have agreed with the plan of care. ARMIN SHI Sep 14, 2024 08:10
[2024-09-14] MEDS: VERAPAMIL 2.5MG/ML INJ 2ML VIAL IV ONE (09:27)
[2024-09-14] MEDS: ANGIOMAX 250 MG VIAL IV ONE (09:27)
[2024-09-14] MEDS: LIDOCAINE 2%HCL (LOCAL ANESTH.) INJ 20ML MDV ONE (09:28)
[2024-09-14] MEDS: MIDAZOLAM HCL 2MG/2ML 2ml VIAL (1mg/ml) ONE (09:28)
[2024-09-14] MEDS: SODIUM CHL 0.9% 0 ML ONE (09:28)
[2024-09-14] MEDS: fentaNYL CITRATE 100 MCG/2 ML VL ONE (09:28)
[2024-09-14] MEDS: ASPirin 81 mg TAB PO SCH (10:00)
[2024-09-14] MEDS: SODIUM CHLORIDE 0.9% 250 ML IV ONE (10:30)
[2024-09-14] MEDS: SODIUM CHLORIDE 0.9% 1,000 ML IV SCH (12:06)
--- NOTE | 2024-09-14 12:50 | DVHOP2 ---
Operative Report -Cardiology Report Details Date: 09/14/24 Preop Diagnosis: Non ST-elevation myocardial infarction. Postop Diagnosis: Chronically occluded [place] left anterior descending artery as well as mid right coronary artery. Widely patent grafts including JENSEN to LAD, saphenous vein graft to distal PDA and obtuse marginal branch. Jump graft to 1st diagonal branch and 2nd obtuse marginal branch. Medical therapy is warranted. Surgeon: Ann Marie Kenny MD Anesthesiologist: Conscious sedation using25 mcg of fentanyl as well as a mg IV midazolam. Was given under direct supervision of mitral valve in the presence of attending elvis joyce. Patient was monitored for total of35 minutes without obvious complication. Anesthesia: Local Consent: The patient was informed of the risks and benefits of the procedure. These include but are not limited to complications of anesthesia, postoperative infection, incomplete relief of symptoms, recurrence of symptoms, damage to blood vessels, nerves and tendons, deep venous thrombosis, pulmonary embolism and possible need for repeat surgery in the future. Indications for Surgery: This is a 79-year-old Nigerien-speaking female who presents to the emergency room with chief complaint of nausea, vomiting, chills, and back pain. Patient states that symptoms began at approximately 1:30 p.m. yesterday afternoon. She came to the emergency room for further evaluation. Initial twelve lead electrocardiogram reveals normal sinus rhythm with nonspecific ST depression to lateral leads. Initial troponin level of 1168ng/L with flat trend thereafter. Significant past medical history includes severe coronary artery disease status post quintuple vessel CABG in November 2022, hypertension, hyperlipidemia, type 2 diabetes mellitus, and obesity. The patient sees strategic insights lead Dr. Kenny in the outpatient setting. Name of Procedure Performed 1. Left heart catheterization with left ventricular end-diastolic pressure measurement. 2. Selective right and left coronary angiography utilizing transradial approach. 3. Graft coronary angiography utilizing left transradial approach: 4. Conscious sedation using25 mcg of fentanyl as well as a mg of midazolam. Procedure Details Procedure Details: Procedure note and vascular access: After informed consent was obtained, risks, benefits, complications, alternatives were discussed in details agrees to have the procedure done. At the beginning of the procedure, the left wrist and right coronary artery were prepped and draped in regular sterile fashion. Patient received conscious sedation using25 mcg of fentanyl as well as a mg IV midazolam total of 2 cc of 1% xylocaine was given in the left wrist area before a six Cypriot sheath was placed using modified Seldinger technique. A cocktail of 2.5 mg of verapamil as well as 100 mcg of nitroglycerin were given intra-arterial to prevent vasospasm. A tiger five Cypriot catheter as well as multipurpose catheter were used to engage the match[place] band and the grafts vessels findings were as follows: 1. Left heart catheterization with left ventricular end-diastolic pressure measurement: With the help of a tiger five Cypriot catheter as well as a J-tip wire we were able to cross the aortic valve and measured left ventricular end-diastolic pressure which was7 mm of mercury. There was no gradient across the aortic valve on the pullback. 2. [place] coronary angiography: 1. The left main comes off the left coronary cusp bifurcates into a large left anterior descending artery as well as a medium-sized left circumflex vessel. Left main main has mild irregularity. 2. Left anterior descending artery is chronically occluded at the ostium. 3. Left circumflex artery has critical disease of the proximal part 80 position gives rise to two obtuse marginal branches both of which are grafted. 4. The right coronary artery comes off the right coronary cusp it has a proximal to mid occlusion. 3. Graft coronary angiography: 1. The left anterior mammary artery comes off the proximal part of the left subclavian artery, it touches down the proximal vascular bed of the left anterior descending artery is widely patent without significant stenosis. 2. 2. Saphenous vein graft as a jump graft was found patent supplying the 1st diagonal branch as well as the 1st obtuse marginal branch. No significant stenosis was noted in the graft. However after the touchdown of the diagonal branch that is critical stenosis of 70% and small caliber vessel not amenable for PCI. 3. Saphenous vein graft as a jump graft to the distal posterior descending artery of the right coronary system as well as the 3rd obtuse marginal branch. Widely patent no significant stenosis. Impression and plan: 1. Widely patent grafts including saphenous vein graft to diagonal and obtuse marginal, saphenous vein graft to PDA and obtuse marginal, left anterior mammary artery to the left anterior descending artery. 2. Chronic diffuse three-vessel disease, involving the left anterior descending artery with a complete occlusion, as well as the right coronary artery with a another total occlusion. There is critical disease of the left circumflex system. 3. Patient's presentation and symptoms likely due to supply demand mismatch ischemia type for with supportive therapy with the aggressive secondary prevention protocol is indicated. 4. The patient has critical disease in the small caliber diagonal branch after the touchdown of the graft which is not amenable for PCI, likely old changes for medical therapy. Condition Good Disposition ANN MARIE KENNY MD Sep 14, 2024 12:50
--- NOTE | 2024-09-14 13:43 | DVHPN2 ---
Progress Note - Dictate Date Seen: Sep 14, 2024 Medical Necessity Reason Pt with a Central, PICC or Fol: No vital signs Vital Sign Date Time Temp Pulse Resp B/P (MAP) Pulse Ox O2 Delivery O2 Flow Rate FiO2 09/14/24 11:06 70 18 128/59 (82) 95 09/14/24 08:59 97.9 97.9 09/14/24 07:45 Room Air* 0 21 Total Intake and Output 09/13/24 09/13/24 09/14/24 15:00 23:00 07:00 Intake Total 140 ml 124 ml 0 ml Balance 140 ml 124 ml 0 ml medications Current Medications Medications Dose Ordered Sig/Sammy Route Start Time Stop Time Status Last Admin Dose Admin Nitroglycerin 0.4 mg Q5MINP PRN SL 09/12/24 23:15 Morphine Sulfate 2 mg Q30M PRN IV 09/12/24 23:15 09/13/24 06:21 2 MG Diagnostic Test (Pha) 1 strip Q6HR 09/13/24 00:00 09/14/24 12:00 1 STRIP Insulin Human Regular Q6HR SC 09/13/24 00:00 09/14/24 05:27 3 UNITS Dextrose 50 ml UD PRN IV 09/12/24 23:15 Ondansetron HCl 4 mg Q4HP PRN IV 09/12/24 23:15 09/13/24 06:20 4 MG Atorvastatin Calcium 40 mg HS PO 09/13/24 22:00 09/13/24 22:16 40 MG Aspirin 81 mg DAILY PO 09/14/24 10:00 Sodium Chloride 1,000 ml @ 60 mls/hr [id number] IV 09/14/24 10:30 09/14/24 12:06 60 MLS/HR objective General Appearance: alert, no distress HEENT: EOMI, PERRLA, normal external inspect of ears, no icterus, no nasal drainage Neck: no carotid bruit, no jugular venous distention (JVD), no lymphadenopathy Chest: normal thorax Respiratory: clear to auscultation, normal air movement Cardiovascular: regular rate and rhythm, no diastolic murmur, no jugular venous distention (JVD), no rub, no systolic murmur Abdominal: soft, no hepatomegaly, no mass, no splenomegaly, no tenderness Genitourinary: grossly normal external Musculoskeletal: no joint tenderness, no swelling Extremities: normal pulses, no calf tenderness, no clubbing, no cyanosis, no edema Skin: no bruising, no jaundice, no rash Neurological: alert, No focal deficit laboratory and microbiology Laboratory Tests 09/14/24 05:33 Test 09/14/24 05:33 Range/Units Serum Glucose 159 H 74-106 mg/dL Problem List 1. NSTEMI Monitor, cardiology consult, trend troponin, heparin gtt 2. CAD Monitor, cardiology consult, plan for possible angiogram 3. HLD Monitor, PPI 4. DM II & hyperglycemia Monitor, insulin ss 5. Hx CABG Monitor Assessment/Plan Subjective: Patient is awake and alert. Objective: Patient is status post heart cath today. Patient was an NSTEMI. Patient also had a fever of 101. Blood cultures were taken and patient was given Tylenol. Patient has underlying history of CAD, hyperlipidemia, and diabetes. Patient was found to have some disease to the mid right coronary artery and left anterior descending. Cardiology did advise medical management. Plan: Continue current treatment. Monitor EKG. Await blood culture results. Monitor daily labs. Plan discussed with: Patient, Other ANGELY SHERMAN NP Sep 14, 2024 13:43
[2024-09-14] MEDS: ACETAMINOPHEN 500 MG TAB or CAP PO PRN (16:22)
[2024-09-14] MEDS: SODIUM CHLORIDE 0.9% 500 ML IV ONE (23:10)
[2024-09-15] VITALS (8 sets, daily range): BP systolic 101–148; BP diastolic 49–61; PULSE 68–90; RESP 17–20; TEMP 97.8–99.2; O2SAT 94–98
--- NOTE | 2024-09-15 09:23 | DVHPN2 ---
Progress Note - Dictate Date Seen: Sep 15, 2024 Medical Necessity Reason Pt with a Central, PICC or Fol: No vital signs Vital Sign Date Time Temp Pulse Resp B/P (MAP) Pulse Ox O2 Delivery O2 Flow Rate FiO2 09/15/24 08:43 98.1 70 20 110/49 (69) 94 98.1 09/14/24 20:00 Room Air* 0 21 Total Intake and Output 09/14/24 09/14/24 09/15/24 15:00 23:00 07:00 Intake Total 490 ml 1200 ml Balance 490 ml 1200 ml medications Current Medications Medications Dose Ordered Sig/Sammy Route Start Time Stop Time Status Last Admin Dose Admin Nitroglycerin 0.4 mg Q5MINP PRN SL 09/12/24 23:15 Morphine Sulfate 2 mg Q30M PRN IV 09/12/24 23:15 09/13/24 06:21 2 MG Diagnostic Test (Pha) 1 strip Q6HR 09/13/24 00:00 09/15/24 06:00 1 STRIP Insulin Human Regular Q6HR SC 09/13/24 00:00 09/14/24 23:23 3 UNITS Dextrose 50 ml UD PRN IV 09/12/24 23:15 Ondansetron HCl 4 mg Q4HP PRN IV 09/12/24 23:15 09/13/24 06:20 4 MG Atorvastatin Calcium 40 mg HS PO 09/13/24 22:00 09/14/24 23:06 40 MG Aspirin 81 mg DAILY PO 09/14/24 10:00 09/15/24 09:01 81 MG Sodium Chloride 1,000 ml @ 60 mls/hr [id number] IV 09/14/24 10:30 09/15/24 03:42 60 MLS/HR Acetaminophen 1,000 mg Q8HP PRN PO 09/14/24 16:00 09/15/24 03:42 1,000 MG Azithromycin 500 mg DAILY PO 09/15/24 10:00 UNV objective General Appearance: alert, no distress HEENT: EOMI, PERRLA, normal external inspect of ears, no icterus, no nasal drainage Neck: no carotid bruit, no jugular venous distention (JVD), no lymphadenopathy Chest: normal thorax Respiratory: clear to auscultation, normal air movement Cardiovascular: regular rate and rhythm, no diastolic murmur, no jugular venous distention (JVD), no rub, no systolic murmur Abdominal: soft, no hepatomegaly, no mass, no splenomegaly, no tenderness Genitourinary: grossly normal external Musculoskeletal: no joint tenderness, no swelling Extremities: normal pulses, no calf tenderness, no clubbing, no cyanosis, no edema Skin: no bruising, no jaundice, no rash Neurological: alert, No focal deficit laboratory and microbiology Laboratory Tests 09/14/24 05:33 Test 09/14/24 05:33 Range/Units Serum Glucose 159 H 74-106 mg/dL Problem List 1. NSTEMI Monitor, cardiology consult, trend troponin, heparin gtt 2. CAD Monitor, cardiology consult, plan for possible angiogram 3. HLD Monitor, PPI 4. DM II & hyperglycemia Monitor, insulin ss 5. Hx CABG Monitor Assessment/Plan Subjective: Patient is awake and alert. Objective: Patient was admitted as an NSTEMI. Patient had a angiogram done, which shows some occlusions to her left LAD and mid right coronary artery. Medical management has been suggested. Patient has a history of a previous CABG and all vessels were found to be patent. Patient had a fever yesterday of 101.6. Blood cultures were taken. Chest x-ray has no acute process. Urinalysis shows no bacteria. Patient was started on oral azithromycin. Plan: Continue current treatment. DC planning for tomorrow if patient remains stable. Plan discussed with: Patient, Other ANGELY SHERMAN NP Sep 15, 2024 09:23
[2024-09-15 10:24] LABS: Basophils # (auto) 0 10 ^3/uL (0-0.2); Basophils % (auto) 0.4 % (0.0-2.0); Eosinophils # (auto) 0.1 10 ^3/uL (0-0.8); Eosinophils % (auto) 0.8 % (0.0-7.0); Hematocrit 39.7 % (36.0-46.0); Lymphocytes % (auto) 13.3 % (10.0-50.0); Mean Corpuscular Hemoglobin 30.2 pg (28.0-32.0); Mean Corpuscular Hgb Conc. 32.8 g/dL (32.0-36.0); Mean Corpuscular Volume 92.1 fL (80.0-100.0); Monocytes # (auto) 0.9 10 ^3/uL (0-1.3); Neutrophils # (auto) 5.8 10 ^3/uL (1.6-8.6); Neutrophils % (auto) 74.5 % (37.0-80.0); Nucleated Red Blood Cells % 0.1 %; Platelet Count (auto) 172 10^3/uL (140-450); Red Blood Cells 4.31 10^6/uL (4.0-5.20); Red Cell Distribution Width 14.4 % (11.8-14.3); White Blood Cell 7.8 10^3/uL (4.4-10.8)
[2024-09-15] MEDS ORDERED: LOSA-534 PO (10:41)
[2024-09-15 11:09] LABS: Chloride 106 mmol/L (98-107); Potassium 3.5 mmol/L (3.5-5.1); Sodium 139 mmol/L (136-145)
[2024-09-15 11:10] LABS: Anion Gap 9 (5-15); Carbon Dioxide 24 mmol/L (20-31)
[2024-09-15 11:11] LABS: Calcium 9.4 mg/dL (8.7-10.4)
[2024-09-15 11:16] LABS: BUN/Creatinine Ratio 27.3 (10.0-20.0); Blood Urea Nitrogen 18 mg/dL (9-23)
[2024-09-15 11:20] LABS: Glucose 263 mg/dL (74-106)
[2024-09-15 11:21] LABS: Urine Bacteria FEW /hpf (None Seen); Urine Blood 1+ /uL (Negative); Urine Clarity Turbid (Clear); Urine Color Light-Yellow (Yellow); Urine Mucus FEW (None Seen); Urine Protein, UAD TRACE (Negative); Urine Specific Gravity 1.024 (1.001-1.035); Urine Urobilinogen Normal (Negative); Urine WBC 156 /hpf (0 - 5); Urine WBC Clumps PRESENT /hpf (None Seen)
[2024-09-15] MEDS: AZITHROMYCIN 250 MG TAB PO SCH (11:25)
[2024-09-15 11:30] LABS: COVID19 ANTIGEN SOFIA FIA NEGATIVE (NEGATIVE)
[2024-09-15 11:31] LABS: Rapid Influenza A Negative (Negative); Rapid Influenza B Negative (Negative)
--- NOTE | 2024-09-15 12:08 | DVH ---
EXAM: XY CHEST XRAY 1 VIEW Indication: fever Technique: Single frontal view of the chest was obtained Comparison: XY CHEST PORTABLE on DOS: 09/12/24, XY CHEST PORTABLE on DOS: 04/17/23, CHEST PORTABLE on DO S: 11/26/22, CXRP on DOS: 11/26/22 FINDINGS: Lines and Tubes: None Lungs: No focal consolidation. Pleura: No effusion. No pneumothorax. Cardiomediastinal contours: Cardiomegaly. Atherosclerotic vascular calcifications of the thoracic ao rta are noted. Bones: No acute osseous abnormality. IMPRESSION: No acute cardiopulmonary disease. Cardiomegaly.
--- NOTE | 2024-09-15 12:34 | DVHPN2 ---
Consult Progress Note Subjective Other Systems: Incision site clean/dry/intact. Patient denies any cardiac symptoms at time of assessment. Objective vital signs Vital Sign Date Time Temp Pulse Resp B/P (MAP) Pulse Ox O2 Delivery O2 Flow Rate FiO2 09/15/24 08:43 98.1 70 20 110/49 (69) 94 98.1 09/14/24 20:00 Room Air* 0 21 Total Intake and Output 09/14/24 09/14/24 09/15/24 15:00 23:00 07:00 Intake Total 490 ml 1200 ml Balance 490 ml 1200 ml medications Current Medications Medications Dose Ordered Sig/Sammy Route Start Time Stop Time Status Last Admin Dose Admin Nitroglycerin 0.4 mg Q5MINP PRN SL 09/12/24 23:15 Morphine Sulfate 2 mg Q30M PRN IV 09/12/24 23:15 09/13/24 06:21 Diagnostic Test (Pha) 1 strip Q6HR 09/13/24 00:00 09/15/24 11:30 Insulin Human Regular Q6HR SC 09/13/24 00:00 09/15/24 11:30 Dextrose 50 ml UD PRN IV 09/12/24 23:15 Ondansetron HCl 4 mg Q4HP PRN IV 09/12/24 23:15 09/13/24 06:20 Atorvastatin Calcium 40 mg HS PO 09/13/24 22:00 09/14/24 23:06 Aspirin 81 mg DAILY PO 09/14/24 10:00 09/15/24 09:01 Sodium Chloride 1,000 ml @ 60 mls/hr [id number] IV 09/14/24 10:30 09/15/24 03:42 Acetaminophen 1,000 mg Q8HP PRN PO 09/14/24 16:00 09/15/24 03:42 Azithromycin 500 mg DAILY PO 09/15/24 10:00 09/15/24 11:25 Examination: GENERAL:Normal, LUNGS:Normal, CVS:Normal, NEURO:Normal laboratory and microbiology Laboratory Tests 09/15/24 09:57 Test 09/15/24 09:57 Range/Units Serum Glucose 263 H 74-106 mg/dL Problem List/Assessment/Plan Problem List/Assessment/Plan NSTEMI, ruled out progressive coronary artery disease Severe coronary artery disease status post quintuple vessel CABG (on Aspirin) Hypertension Hyperlipidemia Type 2 diabetes mellitus, uncontrolled (Hgb A1c 8.3%) Obesity Plan/Recommendation (Dr. Kenny): Transthoracic echocardiogram reveals EF 55%. The patient underwent a coronary angiogram on 09/14/24 which revealed widely patent grafts as well as chronic diffuse three-vessel disease. We will recommend supportive therapy as well as secondary prevention. Consider small dose Imdur for the patients symptoms if tolerated. Continue single antiplatelet therapy and lipid-lowering agent. At this time, we will refer back to patient's primary cardiology team with /MATT Moura. Thank you for allowing us to care for this patient. Please call with any questions or concerns. This medical document was created using an electronic medical record system with voice recognition software and computerized dictation system. Although this document has been carefully reviewed, there might still be some phonetic and typographical errors. Occasional wrong-word or ``sound-alike substitutions may have occurred due to the inherent limitations of voice recognition software. These areas are purely typographical due to imperfections of the software programs and do not reflect any compromise in the patient's medical care. Please read the chart carefully and recognize, using context, where these substitutions have occurred. Plan discussed with: Patient Date of Service: Sep 15, 2024 Billing Provider: OMARI KENNY MD Common Visit Codes: [id number] INP/OBS CARE(HIGH) RADHA TAVERA ROPE TOW OPERATOR Sep 15, 2024 12:34
--- NOTE | 2024-09-15 13:09 | DVHSR ---
APPROVED REPORT EXAM: Two-dimensional and M-mode echocardiogram with Doppler and color Doppler. Blood Pressure: 109/45 mmHg INDICATION Chest Pain Surgery/Intervention CABG: RISK FACTORS Height: 5'4", Weight: 154 DIMENSIONS LVDd4.4 (3.8-5.7cm)LA (2D)4.0 (1.9-4.0cm)Aortic Root3.1 (2.0-3.7cm) LVDs2.8 (2.5-4.0cm)LA (MM) (1.9-4.0cm)Aortic Cusp Exc1.3 (1.5-2.0cm) EF (%) 60.0 (55-70%)Rt. Atrium3.8 (1.9-4.0cm)Asc. Aorta cm IVSd1.4 (0.7-1.1cm)RV (D)4.0 (1.8-2.4cm) PWd1.2 (0.7-1.1cm) Mitral Valve MitralMitral Stenosis E wave0.94m/sMV Mean GR.mmHg A wave1.01m/sMV Peak GR.mmHg E/A ratio0.92D MVAcm2 DECEL [id number] 1/2 [place] Aortic Valve Aortic ValveAortic Stenosis V11.31m/Maria Eugenia Mean GR.11mmHg V22.16m/Maria Eugenia Peak GR.19mmHg LVOT Diameter1.8 (1.8-2.4cm)Doppler AVA1.54cm2 Pulmonic Valve V21.18m/s Tricuspid Valve TR Velocity2.80m/s [id number] Conclusion Normal left ventricular size and dimension. Normal left ventricular systolic function estimated ejec tion fraction 55%. There is a grade 1 diastolic dysfunction. Normal right ventricular size and dimension. Normal right ventricular systolic function. Moderately increased right ventricular systolic pressure 39 mm of mercury. Normal biatrial size and dimension. Normal aortic valve structure and function. Normal mitral valve structure and function. Normal tricuspid valve structure and function. The pulmonary valve is grossly normal. No pericardial effusion.
--- NOTE | 2024-09-15 14:26 | DVHPN2 ---
Progress Note - Dictate Date Seen: Sep 15, 2024 Medical Necessity Reason Pt with a Central, PICC or Fol: No vital signs Vital Sign Date Time Temp Pulse Resp B/P (MAP) Pulse Ox O2 Delivery O2 Flow Rate FiO2 09/15/24 12:52 98.0 71 20 114/55 (74) 95 98.0 09/15/24 08:00 Room Air* 0 21 Total Intake and Output 09/14/24 09/14/24 09/15/24 15:00 23:00 07:00 Intake Total 490 ml 1200 ml Balance 490 ml 1200 ml medications Current Medications Medications Dose Ordered Sig/Sammy Route Start Time Stop Time Status Last Admin Dose Admin Nitroglycerin 0.4 mg Q5MINP PRN SL 09/12/24 23:15 Morphine Sulfate 2 mg Q30M PRN IV 09/12/24 23:15 09/13/24 06:21 2 MG Diagnostic Test (Pha) 1 strip Q6HR 09/13/24 00:00 09/15/24 11:30 1 STRIP Insulin Human Regular Q6HR SC 09/13/24 00:00 09/15/24 11:30 4 UNITS Dextrose 50 ml UD PRN IV 09/12/24 23:15 Ondansetron HCl 4 mg Q4HP PRN IV 09/12/24 23:15 09/13/24 06:20 4 MG Atorvastatin Calcium 40 mg HS PO 09/13/24 22:00 09/14/24 23:06 40 MG Aspirin 81 mg DAILY PO 09/14/24 10:00 09/15/24 09:01 81 MG Sodium Chloride 1,000 ml @ 60 mls/hr [id number] IV 09/14/24 10:30 09/15/24 03:42 60 MLS/HR Acetaminophen 1,000 mg Q8HP PRN PO 09/14/24 16:00 09/15/24 03:42 1,000 MG Azithromycin 500 mg DAILY PO 09/15/24 10:00 09/15/24 11:25 500 MG laboratory and microbiology Laboratory Tests 09/15/24 09:57 Test 09/15/24 09:57 Range/Units Serum Glucose 263 H 74-106 mg/dL Assessment/Plan 79 y/o Female with h/o CABG (2022), Anemia, Arthritis, CAD, CVA, DM, GERD, hyperlipidemia, hypertension, cholecystectomy, and hysterectomy, who presented to the ED with c/o Abdominal pain with n/v x 1 day. She endorsed subjective fever as well as dysuria and constipation. Pt also reports having had some chest pain at home for which she took nitro and had resolution of the chest pain prior to arrival in the ED. Pt underwent labs with initial troponin of 250, but eloped due to feeling better. The repeat troponin level was resulted at 982 therefore patient was contacted and ask to Return to the hospital for further workup and treatment. Troponin was trended further showing continued increase as follows: 250 - 982 - 1168 - 1287. Review of hospital records shows that patient was previously seen here last year for elevated troponin levels (similar to present) and was transferred to [facility] for CABG in Nov 2022. Cardiology is consulted for evaluation and management of NSTEMI. Pt endorses compliance with prescribed ASA, statin, losartan. She states she continues to see cardiology but has transferred through many offices in the past few years (Rory Reyes, [place], unsure of remainder per patient). K 3.4 - 3.9 BUN 24 Creat 0.74 - 0.74 WBC 11.3 Hgb 12.2 - 13.3 HS troponin 250 - 982 - 1168 - 1287 EKG normal sinus rhythm at 54 bpm with prolonged QTc 580ms ECHO 07/10/23 <Conclusion>: Preserved left ventricular systolic function estimate ejection fraction of 55%. There is a concentric left ventricular hypertrophy of mild degree. There is a grade 1 diastolic dysfunction. Normal RV size and dimension. Normal RV systolic function with estimated pressure of 25 mmHg. Normal biatrial size and dimension. Aortic valve is mildly thickened there is mild aortic valve regurgitation. Mitral valve appears normal structure and function. The tricuspid valve is normal structure and function. The pulmonary valve is normal structure and function. No pericardial effusion. ECHO 09/13/24 Conclusion Normal left ventricular size and dimension. Normal left ventricular systolic function estimated ejection fraction 55%. There is a grade 1 diastolic dysfunction. Normal right ventricular size and dimension. Normal right ventricular systolic function. Moderately increased right ventricular systolic pressure 39 mm of mercury. Normal biatrial size and dimension. Normal aortic valve structure and function. Normal mitral valve structure and function. Normal tricuspid valve structure and function. The pulmonary valve is grossly normal. No pericardial effusion. [facility] 09/15/24 Chronically occluded [place] left anterior descending artery as well as mid right coronary artery. Widely patent grafts including JENSEN to LAD, saphenous vein graft to distal PDA and obtuse marginal branch. Jump graft to 1st diagonal branch and 2nd obtuse marginal branch. Medical therapy is warranted. General: No acute distress. Awake and conversant. Egyptian speaking. Neck: Neck is supple. No masses or thyromegaly, no JVD, No carotid bruit. Respiratory: Respirations are non-labored. Lungs are clear to auscultation. Skin: Warm. CV: RRR, Normal heart sounds, no murmurs. No lower extremity edema. Neuro: AAo x 4 79 y/o Female with h/o CABG (2022), Anemia, Arthritis, CAD, CVA, DM, GERD, hyperlipidemia, hypertension, cholecystectomy, and hysterectomy, who presented to the ED with c/o Abdominal pain with n/v x 1 day was found to have elevated troponin levels > 1000. Assessments: NSTEMI h/o CABG 2022 Uncontrolled DM2 hyperlipidemia hypertension Cardiac recommendations: Pt with NSTEMI and troponin > 1000. 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 Pt was initially declining intervention due to having a "friend" that told her she had a cath done and had internal bleeding as a result. Risks, benefits and alternatives discussed at length with all parties. After long discussion, decision was made to proceed with C, planned for 09/14/24. - 09/15 Patient is s/p LHC with plans for medical management as no acute blockages are noted with patent grafts in place. ASA 81mg daily Heparin gtt infusing - discontinued Atorvastatin 40mg daily Nitro tabs PRN Home losartan not yet resumed due to marginal BP. Resume once hemodynamically improved NO BBlocker at this time due to prolonged QTc and bradycardia with HR in range of 50s. LDL and A1C requested. - LDL 73 - A1C 10.1 (uncontrolled DM) Cardiac monitoring Ongoing rate and rhythm surveillance Hemodynamic monitoring. Avoid hypertension and hypotension. Monitor and maintain electrolytes and renal function. Supplement as needed to maintain K > 4.0 and Mg > 2.0. Monitor Hgb and transfuse if Hgb < 7.0. Lifestyle and risk modification counseling All available labs, EKGs, and images were personally reviewed Patient's status, findings, and plan of care was discussed and reviewed with supervising physician Dr. Pina, who is in agreement with current plan of care. Plan of care discussed with and agreed upon by the patient/family/Primary RN. Prognosis: Guarded Thank you for allowing me to participate in the care of this patient. Further recommendations will depend on clinical progression, hospitalist, and other consultants. Will continue to follow with Primary. If you have any questions, please do not hesitate to contact me. A total of 55 minutes was spent reviewing the patient record, examining the patient, making a diagnostic and therapeutic plan, discussing this plan with medical personnel, following up on diagnostic studies and following the patient for clinical stability including any and all procedures. At least 50% of this time was spent in direct, [id number] contact. Plan discussed with: Patient, Other (RN) Provider Statement: I have reviewed the case with my supervising physician. We have agreed with the plan of care. ARMIN SHI BAND AID MACHINE OPERATOR Sep 15, 2024 14:26
[2024-09-16] VITALS (14 sets, daily range): BP systolic 100–127; BP diastolic 41–59; PULSE 76–115; RESP 16–20; TEMP 97.5–101.4; O2SAT 95–100
[2024-09-16] MEDS: ALBUTEROL SULF 2.5 MG/0.5ML(0.5%) NEB SOLN ONE ×2 (08:05→11:17)
[2024-09-16] MEDS: IPRATROPIUM BROM 0.5 MG/2.5ML INH SOL ONE ×2 (08:05→11:17)
[2024-09-16] MEDS: levoFLOXacin 500MG 100 ML IV SCH (09:10)
--- NOTE | 2024-09-16 09:36 | DVHPN2 ---
Progress Note - Dictate Date Seen: Sep 16, 2024 Medical Necessity Reason Pt with a Central, PICC or Fol: No vital signs Vital Sign Date Time Temp Pulse Resp B/P (MAP) Pulse Ox O2 Delivery O2 Flow Rate FiO2 09/16/24 08:17 98.7 85 20 125/58 (80) 97 98.7 09/16/24 08:05 Room Air 09/16/24 08:05 0 21 Total Intake and Output 09/15/24 09/15/24 09/16/24 15:00 23:00 07:00 Intake Total 400 ml 800 ml Balance 400 ml 800 ml medications Current Medications Medications Dose Ordered Sig/Sammy Route Start Time Stop Time Status Last Admin Dose Admin Nitroglycerin 0.4 mg Q5MINP PRN SL 09/12/24 23:15 Morphine Sulfate 2 mg Q30M PRN IV 09/12/24 23:15 09/13/24 06:21 2 MG Diagnostic Test (Pha) 1 strip Q6HR 09/13/24 00:00 09/16/24 06:28 1 STRIP Insulin Human Regular Q6HR SC 09/13/24 00:00 09/16/24 06:31 3 UNITS Dextrose 50 ml UD PRN IV 09/12/24 23:15 Ondansetron HCl 4 mg Q4HP PRN IV 09/12/24 23:15 09/15/24 22:59 4 MG Atorvastatin Calcium 40 mg HS PO 09/13/24 22:00 09/15/24 20:48 40 MG Aspirin 81 mg DAILY PO 09/14/24 10:00 09/16/24 09:08 81 MG Sodium Chloride 1,000 ml @ 60 mls/hr [id number] IV 09/14/24 10:30 09/15/24 23:00 60 MLS/HR Acetaminophen 1,000 mg Q8HP PRN PO 09/14/24 16:00 09/15/24 22:25 1,000 MG Azithromycin 500 mg DAILY PO 09/15/24 10:00 09/16/24 09:08 500 MG Levofloxacin/ Dextrose 100 ml @ 100 mls/hr DAILY IV 09/16/24 10:00 objective General Appearance: alert, no distress HEENT: EOMI, PERRLA, normal external inspect of ears, no icterus, no nasal drainage Neck: no carotid bruit, no jugular venous distention (JVD), no lymphadenopathy Chest: normal thorax Respiratory: clear to auscultation, normal air movement Cardiovascular: regular rate and rhythm, no diastolic murmur, no jugular venous distention (JVD), no rub, no systolic murmur Abdominal: soft, no hepatomegaly, no mass, no splenomegaly, no tenderness Genitourinary: grossly normal external Musculoskeletal: no joint tenderness, no swelling Extremities: normal pulses, no calf tenderness, no clubbing, no cyanosis, no edema Skin: no bruising, no jaundice, no rash Neurological: alert, No focal deficit laboratory and microbiology Laboratory Tests 09/15/24 09:57 Test 09/15/24 09:57 Range/Units Serum Glucose 263 H 74-106 mg/dL Problem List 1. NSTEMI Monitor, cardiology consult, trend troponin, heparin gtt 2. CAD Monitor, cardiology consult, plan for possible angiogram 3. HLD Monitor, PPI 4. DM II & hyperglycemia Monitor, insulin ss 5. Hx CABG Monitor Assessment/Plan Subjective Patient is awake and alert Objective Patient had some episodes of confusion last night. Patient also had mildly elevated temperature. Patient was admitted for chest pain. She was found to be in NSTEMI. Patient is status post angio. Medical management has been suggested. Patient was cleared for discharge by cardiology however patient was febrile. Preliminary blood culture reports show gram-negative rods. Plan Continue medical management with aspirin and atorvastatin. Estimated EF is 55%. Continue IV fluids with normal saline at 60 mL an hour. ID consult. Start Cipro for gram-negative rods. Plan discussed with: Patient, Other ANGELY SHERMAN NP Sep 16, 2024 09:36
--- NOTE | 2024-09-16 10:23 | DVHPN2 ---
Progress Note - Dictate Date Seen: Sep 16, 2024 Medical Necessity Reason Pt with a Central, PICC or Fol: No Subjective Pt seen and evaluated at the bedside in telemetry. She complains of chills and is noted to have a low grade fever. Overnight it is reported that patient was having hallucinations after she took some nitro tabs out of her purse. Pt was educated at length on the proper application of the medications as she denies chest pain. Chart reviewed. vital signs Vital Sign Date Time Temp Pulse Resp B/P (MAP) Pulse Ox O2 Delivery O2 Flow Rate FiO2 09/16/24 08:17 98.7 85 20 125/58 (80) 97 98.7 09/16/24 08:05 Room Air 09/16/24 08:05 0 21 Total Intake and Output 09/15/24 09/15/24 09/16/24 15:00 23:00 07:00 Intake Total 400 ml 800 ml Balance 400 ml 800 ml medications Current Medications Medications Dose Ordered Sig/Sammy Route Start Time Stop Time Status Last Admin Dose Admin Nitroglycerin 0.4 mg Q5MINP PRN SL 09/12/24 23:15 Morphine Sulfate 2 mg Q30M PRN IV 09/12/24 23:15 09/13/24 06:21 2 MG Diagnostic Test (Pha) 1 strip Q6HR 09/13/24 00:00 09/16/24 06:28 1 STRIP Insulin Human Regular Q6HR SC 09/13/24 00:00 09/16/24 06:31 3 UNITS Dextrose 50 ml UD PRN IV 09/12/24 23:15 Ondansetron HCl 4 mg Q4HP PRN IV 09/12/24 23:15 09/15/24 22:59 4 MG Atorvastatin Calcium 40 mg HS PO 09/13/24 22:00 09/15/24 20:48 40 MG Aspirin 81 mg DAILY PO 09/14/24 10:00 09/16/24 09:08 81 MG Sodium Chloride 1,000 ml @ 60 mls/hr [id number] IV 09/14/24 10:30 09/15/24 23:00 60 MLS/HR Acetaminophen 1,000 mg Q8HP PRN PO 09/14/24 16:00 09/15/24 22:25 1,000 MG Azithromycin 500 mg DAILY PO 09/15/24 10:00 09/16/24 09:08 500 MG Levofloxacin/ Dextrose 100 ml @ 100 mls/hr DAILY IV 09/16/24 10:00 laboratory and microbiology Laboratory Tests 09/15/24 09:57 Test 09/15/24 09:57 Range/Units Serum Glucose 263 H 74-106 mg/dL Assessment/Plan 79 y/o Female with h/o CABG (2022), Anemia, Arthritis, CAD, CVA, DM, GERD, hyperlipidemia, hypertension, cholecystectomy, and hysterectomy, who presented to the ED with c/o Abdominal pain with n/v x 1 day. She endorsed subjective fever as well as dysuria and constipation. Pt also reports having had some chest pain at home for which she took nitro and had resolution of the chest pain prior to arrival in the ED. Pt underwent labs with initial troponin of 250, but eloped due to feeling better. The repeat troponin level was resulted at 982 therefore patient was contacted and ask to Return to the hospital for further workup and treatment. Troponin was trended further showing continued increase as follows: 250 - 982 - 1168 - 1287. Review of hospital records shows that patient was previously seen here last year for elevated troponin levels (similar to present) and was transferred to [facility] for CABG in Nov 2022. Cardiology is consulted for evaluation and management of NSTEMI. Pt endorses compliance with prescribed ASA, statin, losartan. She states she continues to see cardiology but has transferred through many offices in the past few years (Rory Reyes Mehta, unsure of remainder per patient). K 3.4 - 3.9 BUN 24 Creat 0.74 - 0.74 WBC 11.3 Hgb 12.2 - 13.3 HS troponin 250 - 982 - 1168 - 1287 EKG normal sinus rhythm at 54 bpm with prolonged QTc 580ms ECHO 07/10/23 <Conclusion>: Preserved left ventricular systolic function estimate ejection fraction of 55%. There is a concentric left ventricular hypertrophy of mild degree. There is a grade 1 diastolic dysfunction. Normal RV size and dimension. Normal RV systolic function with estimated pressure of 25 mmHg. Normal biatrial size and dimension. Aortic valve is mildly thickened there is mild aortic valve regurgitation. Mitral valve appears normal structure and function. The tricuspid valve is normal structure and function. The pulmonary valve is normal structure and function. No pericardial effusion. ECHO 09/13/24 Conclusion Normal left ventricular size and dimension. Normal left ventricular systolic function estimated ejection fraction 55%. There is a grade 1 diastolic dysfunction. Normal right ventricular size and dimension. Normal right ventricular systolic function. Moderately increased right ventricular systolic pressure 39 mm of mercury. Normal biatrial size and dimension. Normal aortic valve structure and function. Normal mitral valve structure and function. Normal tricuspid valve structure and function. The pulmonary valve is grossly normal. No pericardial effusion. LHC 09/15/24 Chronically occluded [place] left anterior descending artery as well as mid right coronary artery. Widely patent grafts including JENSEN to LAD, saphenous vein graft to distal PDA and obtuse marginal branch. Jump graft to 1st diagonal branch and 2nd obtuse marginal branch. Medical therapy is warranted. General: No acute distress. Awake and conversant. Fijian speaking. Neck: Neck is supple. No masses or thyromegaly, no JVD, No carotid bruit. Respiratory: Respirations are non-labored. Lungs are clear to auscultation. Skin: Warm. CV: RRR, Normal heart sounds, no murmurs. No lower extremity edema. Neuro: AAo x 4 79 y/o Female with h/o CABG (2022), Anemia, Arthritis, CAD, CVA, DM, GERD, hyperlipidemia, hypertension, cholecystectomy, and hysterectomy, who presented to the ED with c/o Abdominal pain with n/v x 1 day was found to have elevated troponin levels > 1000. Assessments: NSTEMI h/o CABG 2022 Uncontrolled DM2 hyperlipidemia hypertension Hallucinations Fever Cardiac recommendations: Pt with NSTEMI and troponin > 1000. 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 Pt was initially declining intervention due to having a "friend" that told her she had a cath done and had internal bleeding as a result. Risks, benefits and alternatives discussed at length with all parties. After long discussion, decision was made to proceed with LHC, planned for 09/14/24. - 09/15 Patient is s/p LHC with plans for medical management as no acute blockages are noted with patent grafts in place. ASA 81mg daily Heparin gtt infusing - discontinued Atorvastatin 40mg daily Nitro tabs PRN Home losartan not yet resumed due to marginal BP. Resume once hemodynamically improved NO BBlocker at this time due to prolonged QTc and bradycardia with HR in range of 50s. - suggest repeat ekg with reinitiation of BBlocker if HR will tolerate. LDL and A1C requested. - LDL 73 - A1C 10.1 (uncontrolled DM) Management per PMD. Cardiac monitoring Ongoing rate and rhythm surveillance Hemodynamic monitoring. Avoid hypertension and hypotension. Monitor and maintain electrolytes and renal function. Supplement as needed to maintain K > 4.0 and Mg > 2.0. Monitor Hgb and transfuse if Hgb < 7.0. Lifestyle and risk modification counseling All available labs, EKGs, and images were personally reviewed Patient's status, findings, and plan of care was discussed and reviewed with supervising physician Dr. Pina, who is in agreement with current plan of care. Plan of care discussed with and agreed upon by the patient/family/Primary RN. Prognosis: Guarded Thank you for allowing me to participate in the care of this patient. Further recommendations will depend on clinical progression, hospitalist, and other consultants. Will continue to follow with Primary. If you have any questions, please do not hesitate to contact me. A total of 55 minutes was spent reviewing the patient record, examining the patient, making a diagnostic and therapeutic plan, discussing this plan with medical personnel, following up on diagnostic studies and following the patient for clinical stability including any and all procedures. At least 50% of this time was spent in direct, [id number] contact. Plan discussed with: Patient, Other (RN) Provider Statement: I have reviewed the case with my supervising physician. We have agreed with the plan of care. ARMIN SHI [facility] Sep 16, 2024 10:23
[2024-09-16] MEDS: CIPROFLOXACIN 400MG/200ML 200 ML IV SCH (14:55)
--- NOTE | 2024-09-16 22:16 | DVHINCON2 ---
Date of service: Sep 16, 2024 Family History: Diabetes mellitus G8 MOTHER, Hypertension G8 MOTHER, Allergies: Coded Allergies: Penicillins (Verified Allergy, Unknown, 08/21/16) Home Meds Active Scripts Levofloxacin Hemihydrate (LEVAQUIN 500 MG) 500 Mg Tab, 1 TAB PO DAILY, #7 TAB Prov:ANGELY SHERMAN OSTEOPATHIC MEDICINE TEACHER 09/20/24 Atorvastatin Calcium (ATORVASTATIN CALCIUM) 20 Mg Tab, 40 MG PO HS for 30 Days, #60 TAB Prov:FLORI MACARIO [employer] 09/17/24 Aspirin (Aspirin Low Dose) 81 Mg Tab, 81 MG PO DAILY for 30 Days, #30 TAB Prov:FLORI MACARIO [employer] MANAGER 09/17/24 Reported Medications Losartan Potassium (Losartan Potassium) 50 Mg Tab, 1 TAB PO DAILY for 30 Days, #30 09/15/24 Atorvastatin Calcium (Lipitor) 20 Mg Tab, 1 TAB PO DAILY for 90 Days, #90 09/15/24 Empagliflozin (Jardiance) 25 Mg Tab, 1 TAB PO DAILY for 85 Days, #85 09/15/24 Alogliptin Benzoate (Alogliptin) 25 Mg Tab, 1 TAB PO DAILY for 90 Days, #90 09/15/24 Trazodone Hcl (Trazodone Hcl) 50 Mg Tab, 1 TAB PO DAILY for 90 Days, #90 09/15/24 Omeprazole (Omeprazole) 20 Mg Cap, 40 MG PO DAILY for 30 Days, #30 09/15/24 Diclofenac Sodium (Actinic Ker (Diclofenac Sodium) 3 % Gel, 1 APPLIC TD BID for 30 Days, #100 09/15/24 Semaglutide (Ozempic) 2 Mg/3 Ml Inj, 0.5 MG SC QWEEKLY for 28 Days, #3 09/15/24 Aspirin (Aspir-Low) 81 Mg Tab, 81 MG PO DAILY for CAD, MG 09/20/22 Glimepiride (Glimepiride) 4 Mg Tab, 4 MG PO DAILY for DIABETES, MG 09/20/22 Discontinued Reported Medications Losartan Potassium (Losartan Potassium) 25 Mg Tab, 25 MG PO DAILY for HTN for 30 Days, MG 09/20/22 Atorvastatin Calcium (ATORVASTATIN CALCIUM) 10 Mg Tab, 1 TAB PO DAILY for HIGH CHOLESTEROL, #30 TAB 5 Refills 09/20/22 Current Medications Current Medications Medications (Trade) Dose Ordered Sig/Sammy Route PRN Reason Start Time Stop Time Status Last Admin Levofloxacin/ Dextrose 100 ml @ 100 mls/hr DAILY IV 09/16/24 10:00 09/16/24 12:53 DC Ciprofloxacin 200 ml @ 200 mls/hr BID IV 09/16/24 13:00 09/16/24 14:55 Vital Signs Vital Signs Date Time Temp Pulse Resp B/P (MAP) Pulse Ox O2 Delivery O2 Flow Rate FiO2 09/16/24 21:00 97.6 77 16 102/52 (69) 97 97.6 09/16/24 10:00 Room Air 09/16/24 10:00 0 21 Labs/Diagnostic Data Labs Test 09/16/24 16:54 09/15/24 10:40 09/15/24 10:00 09/15/24 09:57 Range/Units POC Glucose 244 H 70-106 mg/dl Urine Color Light-yellow Yellow Urine Clarity Turbid H Clear Urine pH 5.0 5.0-9.0 Urine Specific Lyndon 1.024 1.001-1.035 Urine Protein Trace H Negative Urine Ketones 1+ H Negative Urine Blood 1+ H Negative /uL Urine Nitrite Negative Negative Urine Bilirubin Negative Negative Urine Urobilinogen Normal Negative mg/dL Urine Leukocyte Esterase 3+ Negative /uL Urine RBC 4 0 - 4 /hpf Urine WBC 156 0 - 5 /hpf Urine WBC Clumps Present None Seen /hpf Urine Squamous Epithelial Cells Few <5 /hpf Urine Bacteria Few H None Seen /hpf Urine Mucus Few None Seen Urine Glucose 4+ H Normal mg/dL Influenza Type A Antigen Negative Negative Influenza Type B Antigen Negative Negative SARS-CoV-2 Antigen (Rapid) Negative NEGATIVE White Blood Count 7.8 4.4-10.8 10^3/uL Red Blood Count 4.31 4.0-5.20 10^6/uL Hemoglobin 13.0 12.2-16.2 g/dL Hematocrit 39.7 36.0-46.0 % Mean Corpuscular Volume 92.1 80.0-100.0 fL Mean Corpuscular Hemoglobin 30.2 28.0-32.0 pg Mean Corpuscular Hemoglobin Concent 32.8 32.0-36.0 g/dL Red Cell Distribution Width 14.4 H 11.8-14.3 % Platelet Count 172 140-450 10^3/uL Mean Platelet Volume 9.4 6.9-10.8 fL Neutrophils (%) (Auto) 74.5 37.0-80.0 % Lymphocytes (%) (Auto) 13.3 10.0-50.0 % Monocytes (%) (Auto) 11.0 0.0-12.0 % Eosinophils (%) (Auto) 0.8 0.0-7.0 % Basophils (%) (Auto) 0.4 0.0-2.0 % Neutrophils # (Auto) 5.8 1.6-8.6 10 ^3/uL Lymphocytes # (Auto) 1.0 0.4-5.4 10 ^3/uL Monocytes # (Auto) 0.9 0-1.3 10 ^3/uL Eosinophils # (Auto) 0.1 0-0.8 10 ^3/uL Basophils # (Auto) 0 0-0.2 10 ^3/uL Nucleated Red Blood Cells 0.1 % Sodium Level 139 136-145 mmol/L Potassium Level 3.5 3.5-5.1 mmol/L Chloride Level 106 98-107 mmol/L Carbon Dioxide Level 24 20-31 mmol/L Anion Gap 9 5-15 Blood Urea Nitrogen 18 9-23 mg/dL Creatinine 0.66 0.550-1.02 mg/dL Glomerular Filtration Rate Calc 90 >90 mL/min BUN/Creatinine Ratio 27.3 H 10.0-20.0 Serum Glucose 263 H 74-106 mg/dL Calcium Level 9.4 8.7-10.4 mg/dL Magnesium Level 2.0 1.6-2.6 mg/dL Test 09/14/24 05:33 09/13/24 06:00 Range/Units Prothrombin Time 11.2 9.3-11.8 sec Prothrombin Time INR 1.06 0.9-1.15 Activated Partial Thromboplast Time 58.7 H 24.5-34.5 SEC Hemoglobin A1c 8.3 H <5.7 % A1C Total Bilirubin 0.8 0.2-1.0 mg/dL Aspartate Amino Transferase (AST) 27 13-40 U/L Alanine Aminotransferase (ALT) 25 7-40 U/L Alkaline Phosphatase 108 46-116 U/L Troponin I High Sensitivity 832 *H </=34 ng/L Total Protein 6.7 5.7-8.2 g/dL Albumin 3.7 3.2-4.8 g/dL Triglycerides Level 102 < 150 mg/dL Cholesterol Level 136 < 200 mg/dL LDL Cholesterol 73 < 100 mg/dL HDL Cholesterol 43 40-59 mg/dL Microbiology Date/Time Source Procedure Growth Status 09/14/24 17:30 Blood Blood Culture - Preliminary NO GROWTH AFTER 48 HOURS OF INCUBATION. Resulted Problems(with codes): (1) Infection due to ESBL-producing Escherichia coli (2) Bacteremia (3) Sepsis (4) Non-STEMI (non-ST elevated myocardial infarction) (5) Urinary tract infection (6) Diarrhea (7) Vomiting (8) Acute urinary tract infection Plan/Recommendation ASSESSMENT AND PLAN: ID Problem List: - Urosepsis - ESBL E. coli bacteremia - Urinary tract infection - Nausea and vomiting - Diabetes mellitus - Coronary artery disease - Anemia - Dyslipidemia - Hypertension - Stroke (HCC) - History of kidney stones - Penicillin allergy Assessment This is a 79 y.o. female with a past medical history of diabetes mellitus, coronary artery disease, anemia, dyslipidemia, hypertension, and stroke (HCC), who presents with nausea and vomiting ongoing for one day prior to admission. She went to the emergency room and then left AMA when she was feeling better but then returned. She denies any chest pain or shortness of breath. Her troponins are now elevated. She denies dysuria, abdominal pain, or flank pain. Urinalysis shows 3+ leukocyte esterase, pyuria, and negative nitrates. Blood cultures are positive for ESBL E. coli. Physical exam notable for an elderly female, regular rate and rhythm, clear lungs, soft abdomen, no suprapubic tenderness, and no CVA tenderness. Labs notable for WBC 11.3 on admission, hemoglobin 12.2, platelets 153, blood glucose 243, sodium 143, potassium 3.4, BUN 10, and creatinine 0.74. Plan: - Start appropriate antibiotics targeting ESBL E. coli bacteremia (avoid penicillins due to allergy) - Recommend renal ultrasound to evaluate for obstruction, pyelonephritis, or renal abscess - Repeat blood cultures to ensure bacteremia has cleared - Discontinue Zapata catheter when able - Monitor blood sugars and manage diabetes mellitus - Monitor troponin levels; consider cardiology consult for elevated troponins - Continue home medications as appropriate Isolation Precautions: standard Assessment and plan was discussed with the patient as written above Plan is subject to change pending incorporation of new incoming information/d iagnostics. Updates may be added as addendum at the bottom (OR TOP) of this note Thank you for interesting consult. ID will continue to follow. Please contact Infectious disease for any questions or concerns. Dung Ramirez M.D. [facility] Ph: ? History: The patient's chart and medications were reviewed in detail and the patient was seen and examined. History obtained from: patient Miss Logan is a 79 y.o. female with a past medical history of diabetes mellitus, coronary artery disease, anemia, dyslipidemia, hypertension, and stroke (HCC). She is Greenlandic-speaking. She presents with nausea and vomiting ongoing for one day prior to admission. She went to the emergency room and then left AMA when she was feeling better but then returned. She denies any chest pain or shortness of breath. She denies dysuria, abdominal pain, or flank pain. Review of Systems: A complete 10 system review of systems was completed and negative except as noted in the HPI or here. ROS: - CONSTITUTIONAL: Denies weight loss, fever, and chills. - HEENT: Denies changes in vision and hearing. - RESPIRATORY: Denies SOB and cough. - CV: Denies palpitations and chest pain. - GI: Reports nausea and vomiting. Denies abdominal pain and diarrhea. - : Denies dysuria and urinary frequency. - MSK: Denies myalgia and joint pain. - SKIN: Denies rash and pruritus. - NEUROLOGICAL: Denies headache and syncope. - PSYCHIATRIC: Denies recent changes in mood. Denies anxiety and depression. Past Medical History: Diagnosis Diabetes mellitus Coronary artery disease Anemia Dyslipidemia Hypertension Stroke (HCC) Past Surgical History: Coronary artery bypass grafting (CABG) Cholecystectomy Hysterectomy Lithotripsy for renal stones Home Medications: Prior to Admission medications Medication Nitroglycerin Alogliptin Aspirin Atorvastatin (Lipitor) Diclofenac Empagliflozin Linagliptin Losartan Omeprazole Semaglutide Trazodone Allergies: Allergies Penicillin (unknown reaction) Family History: Family History Notable family history not specified Social History: Socioeconomic History Language: Greenlandic-speaking Tobacco use: Never Alcohol use: Never Drug use: Never Objective: Vital Signs on Arrival: Temp: 97 F BP: 156/ Pulse: 75 Most Recent Vital Signs: Not available Admission Weight: Weight not provided Physical Exam: General: Elderly female, NAD Neck: Supple. No masses. HEENT: PERRL. Normal lids and conjunctiva. Moist mucous membranes. Oropharynx without lesions, exudates or excessive erythema. Normal appearance of the external aspects of the nose and ears. Heart: Regular rhythm, normal rate. No murmur. No lower extremity edema. Lungs: Normal respiratory effort. Clear to auscultation bilaterally. No wheezes. No crackles. Abdomen: Soft. Non-tender. Non-distended. No masses or abdominal hernia. Msk: No digital cyanosis. Normal strength and tone in all 4 limbs Skin: Warm and dry, no rashes. Neuro: Alert. No facial droop or slurred speech. Extra-ocular movements intact. Sensation intact to soft touch in all 4 limbs. Psych: Appropriate mood. Full affect. Oriented to person, place, time, and situation. Lines: No active lines Diagnostic Studies: Available diagnostic studies were reviewed personally. Significant relevant results and findings are outlined below or addressed in the Assessment and Plan above. Pertinent Imaging: Recent Results Chest X-ray: - Impression - No acute intracardiac or pulmonary disease. CT Abdomen/Pelvis without contrast: - Impression - Results pending. Laboratory Data: WBC 11.3 on admission Hemoglobin 12.2 Platelets 153 Blood glucose 243 Sodium 143 Potassium 3.4 BUN 10 Creatinine 0.74 Troponin elevated Urinalysis: 3+ leukocyte esterase, pyuria, negative nitrates Blood cultures positive for ESBL E. coli Plan discussed with: Patient DUNG RAMIREZ MD Sep 16, 2024 22:16
[2024-09-17] VITALS (8 sets, daily range): BP systolic 100–145; BP diastolic 42–66; PULSE 63–78; RESP 16–18; TEMP 97.3–98.5; O2SAT 95–99
[2024-09-17] MEDS: CEFEPIME 2GM/50ML NS 50 ML IV SCH (05:25)
[2024-09-17 07:33] LABS: Basophils # (auto) 0 10 ^3/uL (0-0.2); Basophils % (auto) 0.6 % (0.0-2.0); Eosinophils # (auto) 0.1 10 ^3/uL (0-0.8); Eosinophils % (auto) 1.4 % (0.0-7.0); Hemoglobin 12.2 g/dL (12.2-16.2); Lymphocytes # (auto) 0.9 10 ^3/uL (0.4-5.4); Mean Corpuscular Hemoglobin 30.8 pg (28.0-32.0); Mean Corpuscular Hgb Conc. 33.9 g/dL (32.0-36.0); Mean Corpuscular Volume 90.9 fL (80.0-100.0); Monocytes # (auto) 0.9 10 ^3/uL (0-1.3); Monocytes % (auto) 11.7 % (0.0-12.0); Neutrophils # (auto) 6.1 10 ^3/uL (1.6-8.6); Neutrophils % (auto) 75.3 % (37.0-80.0); Platelet Count (auto) 160 10^3/uL (140-450); Red Blood Cells 3.95 10^6/uL (4.0-5.20); Red Cell Distribution Width 14.4 % (11.8-14.3); White Blood Cell 8.1 10^3/uL (4.4-10.8)
[2024-09-17 07:47] LABS: Potassium 3.6 mmol/L (3.5-5.1); Sodium 142 mmol/L (136-145)
[2024-09-17 07:48] LABS: Anion Gap 7 (5-15); Carbon Dioxide 25 mmol/L (20-31)
[2024-09-17 07:53] LABS: BUN/Creatinine Ratio 23.8 (10.0-20.0); Blood Urea Nitrogen 15 mg/dL (9-23)
[2024-09-17 07:56] LABS: Chloride 110 mmol/L (98-107); Glucose 127 mg/dL (74-106)
[2024-09-17] MEDS ORDERED: CIPR-173 PO (14:06)
[2024-09-17] MEDS ORDERED: ATOR20TA50 PO (14:06)
[2024-09-17] MEDS ORDERED: ASPI-325 PO (14:06)
[2024-09-17 18:31] LABS: COVID19 ANTIGEN SOFIA FIA NEGATIVE (NEGATIVE); Rapid Influenza A Negative (Negative); Rapid Influenza B Negative (Negative)
--- NOTE | 2024-09-17 18:32 | DVHPN2 ---
Progress Note - Dictate Date Seen: Sep 17, 2024 Medical Necessity Reason Pt with a Central, PICC or Fol: No vital signs Vital Sign Date Time Temp Pulse Resp B/P (MAP) Pulse Ox O2 Delivery O2 Flow Rate FiO2 09/17/24 17:00 97.7 74 16 119/53 (75) 95 97.7 09/17/24 10:00 Room Air* 0 21 Total Intake and Output 09/16/24 09/16/24 09/17/24 15:00 23:00 07:00 Intake Total 400 ml 70 ml Balance 400 ml 70 ml medications Current Medications Medications Dose Ordered Sig/Sammy Route Start Time Stop Time Status Last Admin Dose Admin Nitroglycerin 0.4 mg Q5MINP PRN SL 09/12/24 23:15 Morphine Sulfate 2 mg Q30M PRN IV 09/12/24 23:15 09/13/24 06:21 2 MG Diagnostic Test (Pha) 1 strip Q6HR 09/13/24 00:00 09/17/24 18:11 1 STRIP Insulin Human Regular Q6HR SC 09/13/24 00:00 09/17/24 18:17 3 UNITS Dextrose 50 ml UD PRN IV 09/12/24 23:15 Ondansetron HCl 4 mg Q4HP PRN IV 09/12/24 23:15 09/15/24 22:59 4 MG Atorvastatin Calcium 40 mg HS PO 09/13/24 22:00 09/16/24 22:27 40 MG Aspirin 81 mg DAILY PO 09/14/24 10:00 09/17/24 09:34 81 MG Sodium Chloride 1,000 ml @ 60 mls/hr [id number] IV 09/14/24 10:30 09/16/24 14:53 60 MLS/HR Acetaminophen 1,000 mg Q8HP PRN PO 09/14/24 16:00 09/17/24 13:03 1,000 MG Azithromycin 500 mg DAILY PO 09/15/24 10:00 09/17/24 09:34 500 MG Cefepime HCl 50 ml @ 12.5 mls/hr Q8HR IV 09/17/24 06:00 09/17/24 14:15 12.5 MLS/HR laboratory and microbiology Laboratory Tests 09/17/24 06:57 Test 09/17/24 06:57 Range/Units Serum Glucose 127 H 74-106 mg/dL Assessment/Plan 79 y/o Female with h/o CABG (2022), Anemia, Arthritis, CAD, CVA, DM, GERD, hyperlipidemia, hypertension, cholecystectomy, and hysterectomy, who presented to the ED with c/o Abdominal pain with n/v x 1 day. She endorsed subjective fever as well as dysuria and constipation. Pt also reports having had some chest pain at home for which she took nitro and had resolution of the chest pain prior to arrival in the ED. Pt underwent labs with initial troponin of 250, but eloped due to feeling better. The repeat troponin level was resulted at 982 therefore patient was contacted and ask to Return to the hospital for further workup and treatment. Troponin was trended further showing continued increase as follows: 250 - 982 - 1168 - 1287. Review of hospital records shows that patient was previously seen here last year for elevated troponin levels (similar to present) and was transferred to [facility] for CABG in Nov 2022. Cardiology is consulted for evaluation and management of NSTEMI. Pt endorses compliance with prescribed ASA, statin, losartan. She states she continues to see cardiology but has transferred through many offices in the past few years (Rory Reyes, Uriel, unsure of remainder per patient). HS troponin 250 - 982 - 1168 - 1287 EKG normal sinus rhythm at 54 bpm with prolonged QTc 580ms ECHO 07/10/23 <Conclusion>: Preserved left ventricular systolic function estimate ejection fraction of 55%. There is a concentric left ventricular hypertrophy of mild degree. There is a grade 1 diastolic dysfunction. Normal RV size and dimension. Normal RV systolic function with estimated pressure of 25 mmHg. Normal biatrial size and dimension. Aortic valve is mildly thickened there is mild aortic valve regurgitation. Mitral valve appears normal structure and function. The tricuspid valve is normal structure and function. The pulmonary valve is normal structure and function. No pericardial effusion. ECHO 09/13/24 Conclusion Normal left ventricular size and dimension. Normal left ventricular systolic function estimated ejection fraction 55%. There is a grade 1 diastolic dysfunction. Normal right ventricular size and dimension. Normal right ventricular systolic function. Moderately increased right ventricular systolic pressure 39 mm of mercury. Normal biatrial size and dimension. Normal aortic valve structure and function. Normal mitral valve structure and function. Normal tricuspid valve structure and function. The pulmonary valve is grossly normal. No pericardial effusion. [facility] 09/15/24 Chronically occluded cantwell left anterior descending artery as well as mid right coronary artery. Widely patent grafts including JENSEN to LAD, saphenous vein graft to distal PDA and obtuse marginal branch. Jump graft to 1st diagonal branch and 2nd obtuse marginal branch. Medical therapy is warranted. General: No acute distress. Awake and conversant. Lao speaking. Neck: Neck is supple. No masses or thyromegaly, no JVD, No carotid bruit. Respiratory: Respirations are non-labored. Lungs are clear to auscultation. Skin: Warm. CV: RRR, Normal heart sounds, no murmurs. No lower extremity edema. Neuro: AAo x 4 79 y/o Female with h/o CABG (2022), Anemia, Arthritis, CAD, CVA, DM, GERD, hyperlipidemia, hypertension, cholecystectomy, and hysterectomy, who presented to the ED with c/o Abdominal pain with n/v x 1 day was found to have elevated troponin levels > 1000. Assessments: NSTEMI h/o CABG 2022 Uncontrolled DM2 hyperlipidemia hypertension Hallucinations Fever Cardiac recommendations: Pt with NSTEMI and troponin > 1000. s/p LHC, no need for intervention ASA 81mg daily Heparin gtt infusing - discontinued Atorvastatin 40mg daily Nitro tabs PRN Home losartan not yet resumed due to marginal BP. Resume once hemodynamically improved NO BBlocker at this time due to prolonged QTc and bradycardia with HR in range of 50s. - suggest repeat ekg with reinitiation of BBlocker if HR will tolerate. LDL and A1C requested. - LDL 73 - A1C 10.1 (uncontrolled DM) Management per PMD. Had fever/hallucinations and being evaluated by Primary team. Cardiac monitoring Ongoing rate and rhythm surveillance Hemodynamic monitoring. Avoid hypertension and hypotension. Monitor and maintain electrolytes and renal function. Supplement as needed to maintain K > 4.0 and Mg > 2.0. Monitor Hgb and transfuse if Hgb < 7.0. Lifestyle and risk modification counseling All available labs, EKGs, and images were personally reviewed Plan of care discussed with and agreed upon by the patient/family/Primary RN. Prognosis: Guarded Cardiac bagley, stable Thank you for allowing me to participate in the care of this patient. Further recommendations will depend on clinical progression, hospitalist, and other consultants. Will continue to follow with Primary. If you have any questions, please do not hesitate to contact me. A total of 55 minutes was spent reviewing the patient record, examining the patient, making a diagnostic and therapeutic plan, discussing this plan with medical personnel, following up on diagnostic studies and following the patient for clinical stability including any and all procedures. At least 50% of this time was spent in direct, [id number] contact. Dietary Evaluation Review Comments: 1) Consider a Cardiac/CCHO 45g diet 2) Continue current plan of care Expected Outcomes/Goals: 1) F/U in 3-5 days Plan discussed with: Other (nurse) RAINA SANTANA MD Sep 17, 2024 18:31
--- NOTE | 2024-09-17 21:15 | DVHPN2 ---
Progress Note Date Seen: Sep 17, 2024 Medical Necessity Reason Pt with a Central, PICC or Fol: No Subjective Review of Systems: CVS:Normal, RESPIRATORY:Normal, GI:Normal, :Normal, NEURO:Normal Objective vital signs Vital Sign Date Time Temp Pulse Resp B/P (MAP) Pulse Ox O2 Delivery O2 Flow Rate FiO2 09/17/24 17:00 97.7 74 16 119/53 (75) 95 97.7 09/17/24 10:00 Room Air* 0 21 Total Intake and Output 09/16/24 09/16/24 09/17/24 15:00 23:00 07:00 Intake Total 400 ml 70 ml Balance 400 ml 70 ml medications Current Medications Medications Dose Ordered Sig/Sammy Route Start Time Stop Time Status Last Admin Dose Admin Nitroglycerin 0.4 mg Q5MINP PRN SL 09/12/24 23:15 Morphine Sulfate 2 mg Q30M PRN IV 09/12/24 23:15 09/13/24 06:21 2 MG Diagnostic Test (Pha) 1 strip Q6HR 09/13/24 00:00 09/17/24 18:11 1 STRIP Insulin Human Regular Q6HR SC 09/13/24 00:00 09/17/24 18:17 3 UNITS Dextrose 50 ml UD PRN IV 09/12/24 23:15 Ondansetron HCl 4 mg Q4HP PRN IV 09/12/24 23:15 09/15/24 22:59 4 MG Atorvastatin Calcium 40 mg HS PO 09/13/24 22:00 09/16/24 22:27 40 MG Aspirin 81 mg DAILY PO 09/14/24 10:00 09/17/24 09:34 81 MG Sodium Chloride 1,000 ml @ 60 mls/hr [id number] IV 09/14/24 10:30 09/16/24 14:53 60 MLS/HR Acetaminophen 1,000 mg Q8HP PRN PO 09/14/24 16:00 09/17/24 13:03 1,000 MG Azithromycin 500 mg DAILY PO 09/15/24 10:00 09/17/24 09:34 500 MG Cefepime HCl 50 ml @ 12.5 mls/hr Q8HR IV 09/17/24 06:00 09/17/24 14:15 12.5 MLS/HR Examination: GENERAL:Normal, LUNGS:Normal, CVS:Normal, ABDOMEN:Normal, SKIN:Normal, NEURO:Normal laboratory and microbiology Laboratory Tests 09/17/24 06:57 Test 09/17/24 06:57 Range/Units Serum Glucose 127 H 74-106 mg/dL Microbiology Date/Time Source Procedure Growth Status 09/14/24 17:30 Blood Blood Culture - Preliminary NO GROWTH AFTER 72 HOURS OF INCUBATION. Resulted Labs and/or images reviewed: Labs reviewed by me, Image(s) reviewed by me Problem List/Assessment/Plan Problem List/Assessment/Plan 1. NSTEMI Monitor, cardiology consult, trend troponin, heparin gtt 2. CAD Monitor, cardiology consult, plan for possible angiogram 3. HLD Monitor, PPI 4. DM II & hyperglycemia Monitor, insulin ss 5. Hx CABG Monitor Assessment/Plan Subjective Patient is awake and alert Objective Patient had some episodes of confusion last night. Patient also had mildly elevated temperature. Patient was admitted for chest pain. She was found to be in NSTEMI. Patient is status post angio. Medical management has been suggested. Patient was cleared for discharge by cardiology however patient was febrile. Preliminary blood culture reports show gram-negative rods which is likely contamination. Patient is COVID and flu a B negative Plan Continue medical management with aspirin and atorvastatin. Estimated EF is 55%. Continue IV fluids with normal saline at 60 mL an hour. ID consult. Continue with the Cipro, possible discharge tomorrow Plan discussed with: Patient My Orders My Orders Orders - FLORI MACARIO Procedure Category Date Status Time Blood Culture LETICIA 09/17/24 In Process 13:18 Dietary Evaluation Review Comments: 1) Consider a Cardiac/CCHO 45g diet 2) Continue current plan of care Expected Outcomes/Goals: 1) F/U in 3-5 days Date of Service: Sep 17, 2024 Billing Provider: HILTON CALLE MD Common Visit Codes: [id number] INP/OBS CARE (MOD) FLORI MACARIO Sep 17, 2024 21:15
[2024-09-18] VITALS (10 sets, daily range): BP systolic 110–149; BP diastolic 58–71; PULSE 61–83; RESP 16–18; TEMP 97.4–98.1; O2SAT 91–96
[2024-09-18] MEDS: CALCIUM CARB 500 MG CHEW TAB PO PRN (00:43)
[2024-09-18] MEDS: PANTOPRAZOLE 40 MG TAB PO ONE (11:19)
--- NOTE | 2024-09-18 12:05 | DVHPN2 ---
Progress Note - Dictate Date Seen: Sep 18, 2024 Medical Necessity Reason Pt with a Central, PICC or Fol: No vital signs Vital Sign Date Time Temp Pulse Resp B/P (MAP) Pulse Ox O2 Delivery O2 Flow Rate FiO2 09/18/24 09:00 97.4 83 17 110/58 (75) 94 97.4 09/17/24 20:00 Room Air* 0 21 Total Intake and Output 09/17/24 09/17/24 09/18/24 15:00 23:00 07:00 Intake Total 1520 ml 650 ml Output Total 900 ml Balance 1520 ml -250 ml medications Current Medications Medications Dose Ordered Sig/Sammy Route Start Time Stop Time Status Last Admin Dose Admin Nitroglycerin 0.4 mg Q5MINP PRN SL 09/12/24 23:15 Morphine Sulfate 2 mg Q30M PRN IV 09/12/24 23:15 09/13/24 06:21 2 MG Diagnostic Test (Pha) 1 strip Q6HR 09/13/24 00:00 09/18/24 11:38 1 STRIP Insulin Human Regular Q6HR SC 09/13/24 00:00 09/18/24 11:51 4 UNITS Dextrose 50 ml UD PRN IV 09/12/24 23:15 Ondansetron HCl 4 mg Q4HP PRN IV 09/12/24 23:15 09/17/24 22:47 4 MG Atorvastatin Calcium 40 mg HS PO 09/13/24 22:00 09/17/24 22:48 40 MG Aspirin 81 mg DAILY PO 09/14/24 10:00 09/18/24 11:01 81 MG Sodium Chloride 1,000 ml @ 60 mls/hr [id number] IV 09/14/24 10:30 09/16/24 14:53 60 MLS/HR Acetaminophen 1,000 mg Q8HP PRN PO 09/14/24 16:00 09/17/24 22:49 1,000 MG Azithromycin 500 mg DAILY PO 09/15/24 10:00 09/18/24 11:01 500 MG Cefepime HCl 50 ml @ 12.5 mls/hr Q8HR IV 09/17/24 06:00 09/18/24 05:42 12.5 MLS/HR Calcium Carbonate 500 mg QIDPRN PRN PO 09/18/24 00:15 09/18/24 11:19 500 MG Pantoprazole Sodium 40 mg DAILY@0600 PO 09/19/24 06:00 laboratory and microbiology Laboratory Tests 09/17/24 06:57 Test 09/17/24 06:57 Range/Units Serum Glucose 127 H 74-106 mg/dL Assessment/Plan 79 y/o Female with h/o CABG (2022), Anemia, Arthritis, CAD, CVA, DM, GERD, hyperlipidemia, hypertension, cholecystectomy, and hysterectomy, who presented to the ED with c/o Abdominal pain with n/v x 1 day. She endorsed subjective fever as well as dysuria and constipation. Pt also reports having had some chest pain at home for which she took nitro and had resolution of the chest pain prior to arrival in the ED. Pt underwent labs with initial troponin of 250, but eloped due to feeling better. The repeat troponin level was resulted at 982 therefore patient was contacted and ask to Return to the hospital for further workup and treatment. Troponin was trended further showing continued increase as follows: 250 - 982 - 1168 - 1287. Review of hospital records shows that patient was previously seen here last year for elevated troponin levels (similar to present) and was transferred to [facility] for CABG in Nov 2022. Cardiology is consulted for evaluation and management of NSTEMI. Pt endorses compliance with prescribed ASA, statin, losartan. She states she continues to see cardiology but has transferred through many offices in the past few years (Rory Reyes Mehta, unsure of remainder per patient). HS troponin 250 - 982 - 1168 - 1287 EKG normal sinus rhythm at 54 bpm with prolonged QTc 580ms ECHO 07/10/23 <Conclusion>: Preserved left ventricular systolic function estimate ejection fraction of 55%. There is a concentric left ventricular hypertrophy of mild degree. There is a grade 1 diastolic dysfunction. Normal RV size and dimension. Normal RV systolic function with estimated pressure of 25 mmHg. Normal biatrial size and dimension. Aortic valve is mildly thickened there is mild aortic valve regurgitation. Mitral valve appears normal structure and function. The tricuspid valve is normal structure and function. The pulmonary valve is normal structure and function. No pericardial effusion. ECHO 09/13/24 Conclusion Normal left ventricular size and dimension. Normal left ventricular systolic function estimated ejection fraction 55%. There is a grade 1 diastolic dysfunction. Normal right ventricular size and dimension. Normal right ventricular systolic function. Moderately increased right ventricular systolic pressure 39 mm of mercury. Normal biatrial size and dimension. Normal aortic valve structure and function. Normal mitral valve structure and function. Normal tricuspid valve structure and function. The pulmonary valve is grossly normal. No pericardial effusion. [facility] 09/15/24 Chronically occluded chipewwa left anterior descending artery as well as mid right coronary artery. Widely patent grafts including JENSEN to LAD, saphenous vein graft to distal PDA and obtuse marginal branch. Jump graft to 1st diagonal branch and 2nd obtuse marginal branch. Medical therapy is warranted. General: No acute distress. Awake and conversant. Faroese speaking. Neck: Neck is supple. No masses or thyromegaly, no JVD, No carotid bruit. Respiratory: Respirations are non-labored. Lungs are clear to auscultation. Skin: Warm. CV: RRR, Normal heart sounds, no murmurs. No lower extremity edema. Neuro: AAo x 4 79 y/o Female with h/o CABG (2022), Anemia, Arthritis, CAD, CVA, DM, GERD, hyperlipidemia, hypertension, cholecystectomy, and hysterectomy, who presented to the ED with c/o Abdominal pain with n/v x 1 day was found to have elevated troponin levels > 1000. Assessments: NSTEMI h/o CABG 2022 Uncontrolled DM2 hyperlipidemia hypertension Hallucinations Fever Cardiac recommendations: Pt with NSTEMI and troponin > 1000. s/p LHC, no need for intervention ASA 81mg daily Heparin gtt infusing - discontinued Atorvastatin 40mg daily Nitro tabs PRN You can restart Losartan for better control of hypertension Home losartan not yet resumed due to marginal BP. Resume once hemodynamically improved NO BBlocker at this time due to prolonged QTc and bradycardia with HR in range of 50s. - suggest repeat ekg with reinitiation of BBlocker if HR will tolerate. LDL and A1C requested. - LDL 73 - A1C 10.1 (uncontrolled DM) Management per PMD. Had fever/hallucinations and being evaluated by Primary team. Cardiac monitoring Ongoing rate and rhythm surveillance Hemodynamic monitoring. Avoid hypertension and hypotension. Monitor and maintain electrolytes and renal function. Supplement as needed to maintain K > 4.0 and Mg > 2.0. Monitor Hgb and transfuse if Hgb < 7.0. Lifestyle and risk modification counseling All available labs, EKGs, and images were personally reviewed Plan of care discussed with and agreed upon by the patient/family/Primary RN. Prognosis: Guarded Cardiac bagley, stable Thank you for allowing me to participate in the care of this patient. Further recommendations will depend on clinical progression, hospitalist, and other consultants. Will continue to follow with Primary. If you have any questions, please do not hesitate to contact me. A total of 55 minutes was spent reviewing the patient record, examining the patient, making a diagnostic and therapeutic plan, discussing this plan with medical personnel, following up on diagnostic studies and following the patient for clinical stability including any and all procedures. At least 50% of this time was spent in direct, [id number] contact. Dietary Evaluation Review Comments: 1) Consider a Cardiac/CCHO 45g diet 2) Continue current plan of care Expected Outcomes/Goals: 1) F/U in 3-5 days Plan discussed with: Patient, Other (nurse) RAINA SANTANA MD Sep 18, 2024 12:05
[2024-09-18 14:41] LABS: Basophils # (auto) 0 10 ^3/uL (0-0.2); Basophils % (auto) 0.7 % (0.0-2.0); Eosinophils # (auto) 0.1 10 ^3/uL (0-0.8); Eosinophils % (auto) 1.5 % (0.0-7.0); Hematocrit 36.7 % (36.0-46.0); Hemoglobin 12.2 g/dL (12.2-16.2); Lymphocytes # (auto) 1.3 10 ^3/uL (0.4-5.4); Lymphocytes % (auto) 18.5 % (10.0-50.0); Mean Corpuscular Hemoglobin 30.5 pg (28.0-32.0); Mean Corpuscular Hgb Conc. 33.3 g/dL (32.0-36.0); Mean Corpuscular Volume 91.7 fL (80.0-100.0); Monocytes # (auto) 0.7 10 ^3/uL (0-1.3); Monocytes % (auto) 9.4 % (0.0-12.0); Neutrophils % (auto) 69.9 % (37.0-80.0); Platelet Count (auto) 194 10^3/uL (140-450); Red Cell Distribution Width 14.4 % (11.8-14.3); White Blood Cell 7.2 10^3/uL (4.4-10.8)
[2024-09-18 14:49] LABS: Chloride 104 mmol/L (98-107); Potassium 4.3 mmol/L (3.5-5.1); Sodium 137 mmol/L (136-145)
[2024-09-18 14:50] LABS: Anion Gap 6 (5-15); Carbon Dioxide 27 mmol/L (20-31)
[2024-09-18 14:51] LABS: Calcium 9.6 mg/dL (8.7-10.4)
[2024-09-18 14:56] LABS: BUN/Creatinine Ratio 18.8 (10.0-20.0); Blood Urea Nitrogen 13 mg/dL (9-23)
[2024-09-18 14:57] LABS: Glucose 287 mg/dL (74-106)
--- NOTE | 2024-09-18 17:27 | DVHPN2 ---
Progress Note Date Seen: Sep 18, 2024 Medical Necessity Reason Pt with a Central, PICC or Fol: No Subjective Patient reports: No new complaints Objective vital signs Vital Sign Date Time Temp Pulse Resp B/P (MAP) Pulse Ox O2 Delivery O2 Flow Rate FiO2 09/18/24 16:43 97.8 72 17 124/60 (81) 91 97.8 09/17/24 20:00 Room Air* 0 21 Total Intake and Output 09/17/24 09/17/24 09/18/24 15:00 23:00 07:00 Intake Total 1520 ml 650 ml Output Total 900 ml Balance 1520 ml -250 ml medications Current Medications Medications Dose Ordered Sig/Sammy Route Start Time Stop Time Status Last Admin Dose Admin Nitroglycerin 0.4 mg Q5MINP PRN SL 09/12/24 23:15 Morphine Sulfate 2 mg Q30M PRN IV 09/12/24 23:15 09/13/24 06:21 2 MG Diagnostic Test (Pha) 1 strip Q6HR 09/13/24 00:00 09/18/24 11:38 1 STRIP Insulin Human Regular Q6HR SC 09/13/24 00:00 09/18/24 11:51 4 UNITS Dextrose 50 ml UD PRN IV 09/12/24 23:15 Ondansetron HCl 4 mg Q4HP PRN IV 09/12/24 23:15 09/17/24 22:47 4 MG Atorvastatin Calcium 40 mg HS PO 09/13/24 22:00 09/17/24 22:48 40 MG Aspirin 81 mg DAILY PO 09/14/24 10:00 09/18/24 11:01 81 MG Sodium Chloride 1,000 ml @ 60 mls/hr [id number] IV 09/14/24 10:30 09/18/24 14:59 60 MLS/HR Acetaminophen 1,000 mg Q8HP PRN PO 09/14/24 16:00 09/17/24 22:49 1,000 MG Azithromycin 500 mg DAILY PO 09/15/24 10:00 09/18/24 11:01 500 MG Calcium Carbonate 500 mg QIDPRN PRN PO 09/18/24 00:15 09/18/24 11:19 500 MG Pantoprazole Sodium 40 mg DAILY@0600 PO 09/19/24 06:00 Ertapenem 1 gm/ Sodium Chloride 50 ml @ 100 mls/hr DAILY IV 09/19/24 10:00 Cancel Losartan Potassium 50 mg DAILY PO 09/19/24 10:00 Ertapenem 1 gm/ Sodium Chloride 50 ml @ 100 mls/hr Q24H IV 09/18/24 17:30 Examination: GENERAL:Normal, LUNGS:Normal, CVS:Normal, ABDOMEN:Normal, SKIN:Normal, NEURO:Normal laboratory and microbiology Laboratory Tests 09/18/24 14:09 Test 09/18/24 14:09 Range/Units Serum Glucose 287 H 74-106 mg/dL Microbiology Date/Time Source Procedure Growth Status 09/17/24 15:15 Blood Blood Culture - Preliminary NO GROWTH AFTER 24 HOURS OF INCUBATION. Resulted Labs and/or images reviewed: Labs reviewed by me, Image(s) reviewed by me Problem List/Assessment/Plan Problem List/Assessment/Plan 1. NSTEMI Monitor, cardiology consult, trend troponin, heparin gtt 2. CAD Monitor, cardiology consult, plan for possible angiogram 3. HLD Monitor, PPI 4. DM II & hyperglycemia Monitor, insulin ss 5. Hx CABG Monitor Assessment/Plan Subjective Patient is awake and alert Objective Patient had some episodes of confusion last night. Patient also had mildly elevated temperature. Patient was admitted for chest pain. She was found to be in NSTEMI. Patient is status post angio. Medical management has been suggested. Patient was cleared for discharge by cardiology however patient was febrile. Blood cultures x1 bottle came back positive for ESBL, urine culture was obtain we will await urine culture results. Patient has been afebrile. Patient was placed on Invanz and is pending repeat blood cultures. Plan Continue medical management with aspirin and atorvastatin. Estimated EF is 55%. Continue IV fluids with normal saline at 60 mL an hour. ID consult. Awaiting repeat blood cultures, awaiting urine culture, start patient on Invanz for ESBL bacteremia Plan discussed with: Patient My Orders My Orders Orders - FLORI MACARIO Procedure Category Date Status Time Urine Bacterial LETICIA 09/18/24 In Process Culture 07:09 Pantoprazole Tablet PHA 09/19/24 In Process (Protonix Tablet) 06:00 Communication Order ORDERS 09/18/24 Transmitted 13:11 Ertapenem Sod Inj PHA 09/18/24 In Process (Invanz) 17:30 Dietary Evaluation Review Comments: 1) Consider a Cardiac/[facility]HO 45g diet 2) Continue current plan of care Expected Outcomes/Goals: 1) F/U in 3-5 days Date of Service: Sep 18, 2024 Billing Provider: HILTON CALLE MD Common Visit Codes: 40251-DEEXPJU INP/OBS CARE (MOD) FLORI MACARIO [employer] CLE[employer]ER Sep 18, 2024 17:27
[2024-09-18] MEDS: ERTAPENEM SOD INJ 1 GM in SODIUM CHL 0.9% 50 ML IV SCH (17:53)
--- NOTE | 2024-09-18 23:43 | DVHPN2 ---
Consult Progress Note Date Seen: Sep 17, 2024 Subjective Patient reports: Feels better (no diarrhea or rash) Objective vital signs Vital Sign Date Time Temp Pulse Resp B/P (MAP) Pulse Ox O2 Delivery O2 Flow Rate FiO2 09/18/24 21:00 97.9 75 17 127/64 (85) 94 97.9 09/18/24 19:30 Room Air* 0 21 Total Intake and Output 09/17/24 09/17/24 09/18/24 15:00 23:00 07:00 Intake Total 1520 ml 650 ml Output Total 900 ml Balance 1520 ml -250 ml medications Current Medications Medications Dose Ordered Sig/Sammy Route Start Time Stop Time Status Last Admin Dose Admin Nitroglycerin 0.4 mg Q5MINP PRN SL 09/12/24 23:15 Morphine Sulfate 2 mg Q30M PRN IV 09/12/24 23:15 09/13/24 06:21 2 MG Diagnostic Test (Pha) 1 strip Q6HR 09/13/24 00:00 09/18/24 17:55 1 STRIP Insulin Human Regular Q6HR SC 09/13/24 00:00 09/18/24 18:01 4 UNITS Dextrose 50 ml UD PRN IV 09/12/24 23:15 Ondansetron HCl 4 mg Q4HP PRN IV 09/12/24 23:15 09/17/24 22:47 4 MG Atorvastatin Calcium 40 mg HS PO 09/13/24 22:00 09/18/24 20:26 40 MG Aspirin 81 mg DAILY PO 09/14/24 10:00 09/18/24 11:01 81 MG Sodium Chloride 1,000 ml @ 60 mls/hr [id number] IV 09/14/24 10:30 09/18/24 14:59 60 MLS/HR Acetaminophen 1,000 mg Q8HP PRN PO 09/14/24 16:00 09/17/24 22:49 1,000 MG Azithromycin 500 mg DAILY PO 09/15/24 10:00 09/18/24 11:01 500 MG Calcium Carbonate 500 mg QIDPRN PRN PO 09/18/24 00:15 09/18/24 18:02 500 MG Pantoprazole Sodium 40 mg DAILY@0600 PO 09/19/24 06:00 Ertapenem 1 gm/ Sodium Chloride 50 ml @ 100 mls/hr DAILY IV 09/19/24 10:00 Cancel Losartan Potassium 50 mg DAILY PO 09/19/24 10:00 Ertapenem 1 gm/ Sodium Chloride 50 ml @ 100 mls/hr Q24H IV 09/18/24 17:30 09/18/24 17:53 100 MLS/HR PHYSICAL EXAM: - GENERAL: Alert and oriented x 3. No acute distress. Well-nourished. ? - EYES: EOMI. Anicteric. ?- HENT: Moist mucous membranes. No scleral icterus. No cervical lymphadenopathy. ?- LUNGS: Clear to auscultation bilaterally. No accessory muscle use.? - CARDIOVASCULAR: Regular rate and rhythm. No murmur. No JVD.? - ABDOMEN: Soft, non-tender and non-distended. No palpable masses.? - EXTREMITIES: No edema. Non-tender.?SKIN: No rashes or lesions. Warm. ? - NEUROLOGIC: No focal neurological deficits. CN II-XII grossly intact, but not individually tested.? - PSYCHIATRIC: Cooperative. Appropriate mood and affect. laboratory and microbiology Laboratory Tests 09/18/24 14:09 Test 09/18/24 14:09 Range/Units Serum Glucose 287 H 74-106 mg/dL Problem List/Assessment/Plan Problem List/Assessment/Plan Problems(with codes): (1) Infection due to ESBL-producing Escherichia coli (2) Bacteremia (3) Sepsis (4) Non-STEMI (non-ST elevated myocardial infarction) (5) Urinary tract infection (6) Diarrhea (7) Vomiting (8) Acute urinary tract infection Plan/Recommendation ASSESSMENT AND PLAN: ID Problem List: - Urosepsis - ESBL E. coli bacteremia - Urinary tract infection - Nausea and vomiting - Diabetes mellitus - Coronary artery disease - Anemia - Dyslipidemia - Hypertension - Stroke (HCC) - History of kidney stones - Penicillin allergy Assessment This is a 79 y.o. female with a past medical history of diabetes mellitus, coronary artery disease, anemia, dyslipidemia, hypertension, and stroke (HCC), who presents with nausea and vomiting ongoing for one day prior to admission. She went to the emergency room and then left AMA when she was feeling better but then returned. She denies any chest pain or shortness of breath. Her troponins are now elevated. She denies dysuria, abdominal pain, or flank pain. Urinalysis shows 3+ leukocyte esterase, pyuria, and negative nitrates. Blood cultures are positive for ESBL E. coli. Physical exam notable for an elderly female, regular rate and rhythm, clear lungs, soft abdomen, no suprapubic tenderness, and no CVA tenderness. Labs notable for WBC 11.3 on admission, hemoglobin 12.2, platelets 153, blood glucose 243, sodium 143, potassium 3.4, BUN 10, and creatinine 0.74. Plan: - Start appropriate antibiotics targeting ESBL E. coli bacteremia (avoid penicillins due to allergy) - Recommend renal ultrasound to evaluate for obstruction, pyelonephritis, or renal abscess - Repeat blood cultures to ensure bacteremia has cleared - Discontinue Zapata catheter when able - Monitor blood sugars and manage diabetes mellitus - Monitor troponin levels; consider cardiology consult for elevated troponins - Continue home medications as appropriate Isolation Precautions: standard Assessment and plan was discussed with the patient as written above Plan is subject to change pending incorporation of new incoming information/diagnostics. Updates may be added as addendum at the bottom (OR TOP) of this note Thank you for interesting consult. ID will continue to follow. Please contact Infectious disease for any questions or concerns. Dung Ramirez M.D. [facility] Ph: ? Plan discussed with: Patient Dietary Evaluation Review Comments: 1) Consider a Cardiac/[facility]HO 45g diet 2) Continue current plan of care Expected Outcomes/Goals: 1) F/U in 3-5 days DUNG RAMIREZ MD Sep 18, 2024 23:43
--- NOTE | 2024-09-18 23:43 | DVHPN2 ---
Consult Progress Note Date Seen: Sep 18, 2024 Subjective Patient reports: Feels better (no fever or chills) Objective vital signs Vital Sign Date Time Temp Pulse Resp B/P (MAP) Pulse Ox O2 Delivery O2 Flow Rate FiO2 09/18/24 21:00 97.9 75 17 127/64 (85) 94 97.9 09/18/24 19:30 Room Air* 0 21 Total Intake and Output 09/17/24 09/17/24 09/18/24 15:00 23:00 07:00 Intake Total 1520 ml 650 ml Output Total 900 ml Balance 1520 ml -250 ml medications Current Medications Medications Dose Ordered Sig/Sammy Route Start Time Stop Time Status Last Admin Dose Admin Nitroglycerin 0.4 mg Q5MINP PRN SL 09/12/24 23:15 Morphine Sulfate 2 mg Q30M PRN IV 09/12/24 23:15 09/13/24 06:21 2 MG Diagnostic Test (Pha) 1 strip Q6HR 09/13/24 00:00 09/18/24 17:55 1 STRIP Insulin Human Regular Q6HR SC 09/13/24 00:00 09/18/24 18:01 4 UNITS Dextrose 50 ml UD PRN IV 09/12/24 23:15 Ondansetron HCl 4 mg Q4HP PRN IV 09/12/24 23:15 09/17/24 22:47 4 MG Atorvastatin Calcium 40 mg HS PO 09/13/24 22:00 09/18/24 20:26 40 MG Aspirin 81 mg DAILY PO 09/14/24 10:00 09/18/24 11:01 81 MG Sodium Chloride 1,000 ml @ 60 mls/hr [id number] IV 09/14/24 10:30 09/18/24 14:59 60 MLS/HR Acetaminophen 1,000 mg Q8HP PRN PO 09/14/24 16:00 09/17/24 22:49 1,000 MG Azithromycin 500 mg DAILY PO 09/15/24 10:00 09/18/24 11:01 500 MG Calcium Carbonate 500 mg QIDPRN PRN PO 09/18/24 00:15 09/18/24 18:02 500 MG Pantoprazole Sodium 40 mg DAILY@0600 PO 09/19/24 06:00 Ertapenem 1 gm/ Sodium Chloride 50 ml @ 100 mls/hr DAILY IV 09/19/24 10:00 Cancel Losartan Potassium 50 mg DAILY PO 09/19/24 10:00 Ertapenem 1 gm/ Sodium Chloride 50 ml @ 100 mls/hr Q24H IV 09/18/24 17:30 09/18/24 17:53 100 MLS/HR PHYSICAL EXAM: - GENERAL: Alert and oriented x 3. No acute distress. Well-nourished. ? - EYES: EOMI. Anicteric. ?- HENT: Moist mucous membranes. No scleral icterus. No cervical lymphadenopathy. ?- LUNGS: Clear to auscultation bilaterally. No accessory muscle use.? - CARDIOVASCULAR: Regular rate and rhythm. No murmur. No JVD.? - ABDOMEN: Soft, non-tender and non-distended. No palpable masses.? - EXTREMITIES: No edema. Non-tender.?SKIN: No rashes or lesions. Warm. ? - NEUROLOGIC: No focal neurological deficits. CN II-XII grossly intact, but not individually tested.? - PSYCHIATRIC: Cooperative. Appropriate mood and affect. laboratory and microbiology Laboratory Tests 09/18/24 14:09 Test 09/18/24 14:09 Range/Units Serum Glucose 287 H 74-106 mg/dL Problem List/Assessment/Plan Problem List/Assessment/Plan Problems(with codes): (1) Infection due to ESBL-producing Escherichia coli (2) Bacteremia (3) Sepsis (4) Non-STEMI (non-ST elevated myocardial infarction) (5) Urinary tract infection (6) Diarrhea (7) Vomiting (8) Acute urinary tract infection Plan/Recommendation ASSESSMENT AND PLAN: ID Problem List: - Urosepsis - ESBL E. coli bacteremia - Urinary tract infection - Nausea and vomiting - Diabetes mellitus - Coronary artery disease - Anemia - Dyslipidemia - Hypertension - Stroke (HCC) - History of kidney stones - Penicillin allergy Assessment This is a 79 y.o. female with a past medical history of diabetes mellitus, coronary artery disease, anemia, dyslipidemia, hypertension, and stroke (HCC), who presents with nausea and vomiting ongoing for one day prior to admission. She went to the emergency room and then left AMA when she was feeling better but then returned. She denies any chest pain or shortness of breath. Her troponins are now elevated. She denies dysuria, abdominal pain, or flank pain. Urinalysis shows 3+ leukocyte esterase, pyuria, and negative nitrates. Blood cultures are positive for ESBL E. coli. Physical exam notable for an elderly female, regular rate and rhythm, clear lungs, soft abdomen, no suprapubic tenderness, and no CVA tenderness. Labs notable for WBC 11.3 on admission, hemoglobin 12.2, platelets 153, blood glucose 243, sodium 143, potassium 3.4, BUN 10, and creatinine 0.74. Plan: - continue ertapenem - Recommend renal ultrasound to evaluate for obstruction, pyelonephritis, or renal abscess - Repeat blood cultures to ensure bacteremia has cleared - Discontinue Zapata catheter when able - Monitor blood sugars and manage diabetes mellitus - Monitor troponin levels; consider cardiology consult for elevated troponins - Continue home medications as appropriate Isolation Precautions: standard Assessment and plan was discussed with the patient as written above Plan is subject to change pending incorporation of new incoming information/diagnostics. Updates may be added as addendum at the bottom (OR TOP) of this note Thank you for interesting consult. ID will continue to follow. Please contact Infectious disease for any questions or concerns. Dung Ramirez M.D. [facility] Ph: ? Plan discussed with: Patient Dietary Evaluation Review Comments: 1) Consider a Cardiac/[facility] 45g diet 2) Continue current plan of care Expected Outcomes/Goals: 1) F/U in 3-5 days DUNG RAMIREZ MD Sep 18, 2024 23:43
[2024-09-19] VITALS (8 sets, daily range): BP systolic 116–136; BP diastolic 52–73; PULSE 70–83; RESP 16–20; TEMP 97.7–98.1; O2SAT 93–99
[2024-09-19] MEDS: PANTOPRAZOLE 40 MG TAB PO SCH (06:29)
--- NOTE | 2024-09-19 07:36 | DVHPN2 ---
Progress Note - Dictate Date Seen: Sep 19, 2024 Medical Necessity Reason Pt with a Central, PICC or Fol: No vital signs Vital Sign Date Time Temp Pulse Resp B/P (MAP) Pulse Ox O2 Delivery O2 Flow Rate FiO2 09/19/24 05:00 97.7 70 20 136/52 (80) 93 97.7 09/18/24 19:30 Room Air* 0 21 Total Intake and Output 09/18/24 09/18/24 09/19/24 15:00 23:00 07:00 Intake Total 500 ml 800 ml 0 ml Output Total 500 ml Balance 500 ml 800 ml -500 ml medications Current Medications Medications Dose Ordered Sig/Sammy Route Start Time Stop Time Status Last Admin Dose Admin Nitroglycerin 0.4 mg Q5MINP PRN SL 09/12/24 23:15 Morphine Sulfate 2 mg Q30M PRN IV 09/12/24 23:15 09/13/24 06:21 2 MG Diagnostic Test (Pha) 1 strip Q6HR 09/13/24 00:00 09/19/24 06:34 1 STRIP Insulin Human Regular Q6HR SC 09/13/24 00:00 09/19/24 06:39 3 UNITS Dextrose 50 ml UD PRN IV 09/12/24 23:15 Ondansetron HCl 4 mg Q4HP PRN IV 09/12/24 23:15 09/17/24 22:47 4 MG Atorvastatin Calcium 40 mg HS PO 09/13/24 22:00 09/18/24 20:26 40 MG Aspirin 81 mg DAILY PO 09/14/24 10:00 09/18/24 11:01 81 MG Sodium Chloride 1,000 ml @ 60 mls/hr [id number] IV 09/14/24 10:30 09/18/24 23:44 60 MLS/HR Acetaminophen 1,000 mg Q8HP PRN PO 09/14/24 16:00 09/17/24 22:49 1,000 MG Azithromycin 500 mg DAILY PO 09/15/24 10:00 09/18/24 11:01 500 MG Calcium Carbonate 500 mg QIDPRN PRN PO 09/18/24 00:15 09/18/24 18:02 500 MG Pantoprazole Sodium 40 mg DAILY@0600 PO 09/19/24 06:00 09/19/24 06:29 40 MG Ertapenem 1 gm/ Sodium Chloride 50 ml @ 100 mls/hr DAILY IV 09/19/24 10:00 Cancel Losartan Potassium 50 mg DAILY PO 09/19/24 10:00 Ertapenem 1 gm/ Sodium Chloride 50 ml @ 100 mls/hr Q24H IV 09/18/24 17:30 09/18/24 17:53 100 MLS/HR laboratory and microbiology Laboratory Tests 09/18/24 14:09 Test 09/18/24 14:09 Range/Units Serum Glucose 287 H 74-106 mg/dL Assessment/Plan 79 y/o Female with h/o CABG (2022), Anemia, Arthritis, CAD, CVA, DM, GERD, hyperlipidemia, hypertension, cholecystectomy, and hysterectomy, who presented to the ED with c/o Abdominal pain with n/v x 1 day. She endorsed subjective fever as well as dysuria and constipation. Pt also reports having had some chest pain at home for which she took nitro and had resolution of the chest pain prior to arrival in the ED. Pt underwent labs with initial troponin of 250, but eloped due to feeling better. The repeat troponin level was resulted at 982 therefore patient was contacted and ask to Return to the hospital for further workup and treatment. Troponin was trended further showing continued increase as follows: 250 - 982 - 1168 - 1287. Review of hospital records shows that patient was previously seen here last year for elevated troponin levels (similar to present) and was transferred to [facility] for CABG in Nov 2022. Cardiology is consulted for evaluation and management of NSTEMI. Pt endorses compliance with prescribed ASA, statin, losartan. She states she continues to see cardiology but has transferred through many offices in the past few years (Rory Reyes Mehta, unsure of remainder per patient). HS troponin 250 - 982 - 1168 - 1287 EKG normal sinus rhythm at 54 bpm with prolonged QTc 580ms ECHO 07/10/23 <Conclusion>: Preserved left ventricular systolic function estimate ejection fraction of 55%. There is a concentric left ventricular hypertrophy of mild degree. There is a grade 1 diastolic dysfunction. Normal RV size and dimension. Normal RV systolic function with estimated pressure of 25 mmHg. Normal biatrial size and dimension. Aortic valve is mildly thickened there is mild aortic valve regurgitation. Mitral valve appears normal structure and function. The tricuspid valve is normal structure and function. The pulmonary valve is normal structure and function. No pericardial effusion. ECHO 09/13/24 Conclusion Normal left ventricular size and dimension. Normal left ventricular systolic function estimated ejection fraction 55%. There is a grade 1 diastolic dysfunction. Normal right ventricular size and dimension. Normal right ventricular systolic function. Moderately increased right ventricular systolic pressure 39 mm of mercury. Normal biatrial size and dimension. Normal aortic valve structure and function. Normal mitral valve structure and function. Normal tricuspid valve structure and function. The pulmonary valve is grossly normal. No pericardial effusion. LHC 09/15/24 Chronically occluded [place] left anterior descending artery as well as mid right coronary artery. Widely patent grafts including JENSEN to LAD, saphenous vein graft to distal PDA and obtuse marginal branch. Jump graft to 1st diagonal branch and 2nd obtuse marginal branch. Medical therapy is warranted. General: No acute distress. Awake and conversant. Citizen [place] speaking. Neck: Neck is supple. No masses or thyromegaly, no JVD, No carotid bruit. Respiratory: Respirations are non-labored. Lungs are clear to auscultation. Skin: Warm. CV: RRR, Normal heart sounds, no murmurs. No lower extremity edema. Neuro: AAo x 4 79 y/o Female with h/o CABG (2022), Anemia, Arthritis, CAD, CVA, DM, GERD, hyperlipidemia, hypertension, cholecystectomy, and hysterectomy, who presented to the ED with c/o Abdominal pain with n/v x 1 day was found to have elevated troponin levels > 1000. Assessments: NSTEMI h/o CABG 2022 Uncontrolled DM2 hyperlipidemia hypertension Hallucinations Fever Cardiac recommendations: Pt with NSTEMI and troponin > 1000. s/p LHC, no need for intervention ASA 81mg daily Heparin gtt infusing - discontinued Atorvastatin 40mg daily Nitro tabs PRN You can restart Losartan for better control of hypertension Home losartan not yet resumed due to marginal BP. Resume once hemodynamically improved NO BBlocker at this time due to prolonged QTc and bradycardia with HR in range of 50s. - suggest repeat ekg with reinitiation of BBlocker if HR will tolerate. LDL and A1C requested. - LDL 73 - A1C 10.1 (uncontrolled DM) Management per PMD. Had fever/hallucinations and being evaluated by Primary team. Cardiac monitoring Ongoing rate and rhythm surveillance Hemodynamic monitoring. Avoid hypertension and hypotension. Monitor and maintain electrolytes and renal function. Supplement as needed to maintain K > 4.0 and Mg > 2.0. Monitor Hgb and transfuse if Hgb < 7.0. Lifestyle and risk modification counseling All available labs, EKGs, and images were personally reviewed Plan of care discussed with and agreed upon by the patient/family/Primary RN. Prognosis: Guarded Cardiac bagley, stable Thank you for allowing me to participate in the care of this patient. Further recommendations will depend on clinical progression, hospitalist, and other consultants. Will continue to follow with Primary. If you have any questions, please do not hesitate to contact me. A total of 55 minutes was spent reviewing the patient record, examining the patient, making a diagnostic and therapeutic plan, discussing this plan with medical personnel, following up on diagnostic studies and following the patient for clinical stability including any and all procedures. At least 50% of this time was spent in direct, [id number] contact. Dietary Evaluation Review Comments: 1) Consider a Cardiac/[facility]HO 45g diet 2) Continue current plan of care Expected Outcomes/Goals: 1) F/U in 3-5 days Plan discussed with: Other (nurse) RAINA SANTANA MD Sep 19, 2024 07:36
[2024-09-19] MEDS: LOSARTAN POTASSIUM 50 MG TAB PO SCH (09:42)
[2024-09-19] MEDS: ERTAPENEM SOD INJ 1 GM in SODIUM CHL 0.9% 50 ML IV ONE (09:42)
[2024-09-19] MEDS ORDERED: ERTAPENEM SOD INJ 1 GM in SODIUM CHL 0.9% 50 ML IV SCH (10:00)
--- NOTE | 2024-09-19 17:59 | DVHPN2 ---
Progress Note Date Seen: Sep 19, 2024 Medical Necessity Reason Pt with a Central, PICC or Fol: No Subjective Review of Systems: CVS:Normal, RESPIRATORY:Normal, GI:Normal, :Normal, NEURO:Normal Objective vital signs Vital Sign Date Time Temp Pulse Resp B/P (MAP) Pulse Ox O2 Delivery O2 Flow Rate FiO2 09/19/24 17:00 98.1 73 20 116/55 (75) 93 98.1 09/19/24 09:38 Room Air* 0 21 Total Intake and Output 09/18/24 09/18/24 09/19/24 15:00 23:00 07:00 Intake Total 500 ml 800 ml 0 ml Output Total 500 ml Balance 500 ml 800 ml -500 ml medications Current Medications Medications Dose Ordered Sig/Sammy Route Start Time Stop Time Status Last Admin Dose Admin Nitroglycerin 0.4 mg Q5MINP PRN SL 09/12/24 23:15 Morphine Sulfate 2 mg Q30M PRN IV 09/12/24 23:15 09/13/24 06:21 2 MG Diagnostic Test (Pha) 1 strip Q6HR 09/13/24 00:00 09/19/24 17:20 1 STRIP Insulin Human Regular Q6HR SC 09/13/24 00:00 09/19/24 11:49 4 UNITS Dextrose 50 ml UD PRN IV 09/12/24 23:15 Ondansetron HCl 4 mg Q4HP PRN IV 09/12/24 23:15 09/17/24 22:47 4 MG Atorvastatin Calcium 40 mg HS PO 09/13/24 22:00 09/18/24 20:26 40 MG Aspirin 81 mg DAILY PO 09/14/24 10:00 09/19/24 09:42 81 MG Sodium Chloride 1,000 ml @ 60 mls/hr [id number] IV 09/14/24 10:30 09/18/24 23:44 60 MLS/HR Acetaminophen 1,000 mg Q8HP PRN PO 09/14/24 16:00 09/17/24 22:49 1,000 MG Azithromycin 500 mg DAILY PO 09/15/24 10:00 09/19/24 09:42 500 MG Calcium Carbonate 500 mg QIDPRN PRN PO 09/18/24 00:15 09/19/24 09:55 500 MG Pantoprazole Sodium 40 mg DAILY@0600 PO 09/19/24 06:00 09/19/24 06:29 40 MG Ertapenem 1 gm/ Sodium Chloride 50 ml @ 100 mls/hr DAILY IV 09/19/24 10:00 Cancel Losartan Potassium 50 mg DAILY PO 09/19/24 10:00 09/19/24 09:42 50 MG Ertapenem 1 gm/ Sodium Chloride 50 ml @ 100 mls/hr Q24H IV 09/18/24 17:30 09/18/24 17:53 100 MLS/HR Examination: GENERAL:Normal, LUNGS:Normal, CVS:Normal, ABDOMEN:Normal, SKIN:Normal, NEURO:Normal laboratory and microbiology Laboratory Tests 09/18/24 14:09 Test 09/18/24 14:09 Range/Units Serum Glucose 287 H 74-106 mg/dL Microbiology Date/Time Source Procedure Growth Status 09/18/24 12:00 Urine - [place] Urine Culture - Preliminary Resulted 09/17/24 15:15 Blood Blood Culture - Preliminary NO GROWTH AFTER 48 HOURS OF INCUBATION. Resulted Labs and/or images reviewed: Labs reviewed by me, Image(s) reviewed by me Problem List/Assessment/Plan Problem List/Assessment/Plan 1. NSTEMI Monitor, cardiology consult, trend troponin, heparin gtt 2. CAD Monitor, cardiology consult, plan for possible angiogram 3. HLD Monitor, PPI 4. DM II & hyperglycemia Monitor, insulin ss 5. Hx CABG Monitor Assessment/Plan Subjective Patient is awake and alert Objective Patient had some episodes of confusion last night. Patient also had mildly elevated temperature. Patient was admitted for chest pain. She was found to be in NSTEMI. Patient is status post angio. Medical management has been suggested. Patient was cleared for discharge by cardiology however patient was febrile. Blood cultures x1 bottle came back positive for ESBL, urine culture was obtain we will await urine culture results. Patient has been afebrile. Patient was placed on Invanz and is pending repeat blood cultures. Placed order for midline Plan Continue medical management with aspirin and atorvastatin. Estimated EF is 55%. Continue IV fluids with normal saline at 60 mL an hour. ID consult. Awaiting repeat blood cultures, awaiting urine culture, start patient on Invanz for ESBL bacteremia Plan discussed with: Patient My Orders My Orders Orders - FLORI MACARIO Procedure Category Date Status Time Insert Midline ORDERS 09/19/24 Transmitted 11:54 Dietary Evaluation Review Comments: 1) Consider a Cardiac/[facility]HO 45g diet 2) Continue current plan of care Expected Outcomes/Goals: 1) F/U in 3-5 days Date of Service: Sep 19, 2024 Billing Provider: HILTON CALLE MD Common Visit Codes: [id number] INP/OBS CARE (MOD) FLORI MACARIO [employer] Sep 19, 2024 17:59
[2024-09-19] MEDS: ZOLPIDEM TARTRATE 5 MG TAB PO PRN (22:25)
[2024-09-20] VITALS (8 sets, daily range): BP systolic 94–148; BP diastolic 60–71; PULSE 68–107; RESP 17–21; TEMP 97.6–98.4; O2SAT 94–98
--- NOTE | 2024-09-20 08:14 | DVHPN2 ---
Progress Note - Dictate Date Seen: Sep 20, 2024 Medical Necessity Reason Pt with a Central, PICC or Fol: No vital signs Vital Sign Date Time Temp Pulse Resp B/P (MAP) Pulse Ox O2 Delivery O2 Flow Rate FiO2 09/20/24 05:00 98.0 68 17 135/71 (92) 94 98.0 09/19/24 20:00 Room Air* 0 21 Total Intake and Output 09/19/24 09/19/24 09/20/24 15:00 23:00 07:00 Intake Total 450 ml 800 ml Output Total 1000 ml 450 ml Balance -550 ml 350 ml medications Current Medications Medications Dose Ordered Sig/Sammy Route Start Time Stop Time Status Last Admin Dose Admin Nitroglycerin 0.4 mg Q5MINP PRN SL 09/12/24 23:15 Morphine Sulfate 2 mg Q30M PRN IV 09/12/24 23:15 09/13/24 06:21 2 MG Diagnostic Test (Pha) 1 strip Q6HR 09/13/24 00:00 09/20/24 06:18 1 STRIP Insulin Human Regular Q6HR SC 09/13/24 00:00 09/20/24 06:25 3 UNITS Dextrose 50 ml UD PRN IV 09/12/24 23:15 Ondansetron HCl 4 mg Q4HP PRN IV 09/12/24 23:15 09/17/24 22:47 4 MG Atorvastatin Calcium 40 mg HS PO 09/13/24 22:00 09/19/24 22:25 40 MG Aspirin 81 mg DAILY PO 09/14/24 10:00 09/19/24 09:42 81 MG Sodium Chloride 1,000 ml @ 60 mls/hr [id number] IV 09/14/24 10:30 09/19/24 23:49 60 MLS/HR Acetaminophen 1,000 mg Q8HP PRN PO 09/14/24 16:00 09/17/24 22:49 1,000 MG Azithromycin 500 mg DAILY PO 09/15/24 10:00 09/19/24 09:42 500 MG Calcium Carbonate 500 mg QIDPRN PRN PO 09/18/24 00:15 09/19/24 09:55 500 MG Pantoprazole Sodium 40 mg DAILY@0600 PO 09/19/24 06:00 09/20/24 06:13 40 MG Ertapenem 1 gm/ Sodium Chloride 50 ml @ 100 mls/hr DAILY IV 09/19/24 10:00 Cancel Losartan Potassium 50 mg DAILY PO 09/19/24 10:00 09/19/24 09:42 50 MG Ertapenem 1 gm/ Sodium Chloride 50 ml @ 100 mls/hr Q24H IV 09/18/24 17:30 09/19/24 17:58 100 MLS/HR Zolpidem Tartrate 5 mg HSPRN PRN PO 09/19/24 20:30 09/19/24 22:25 5 MG laboratory and microbiology Laboratory Tests 09/18/24 14:09 Test 09/18/24 14:09 Range/Units Serum Glucose 287 H 74-106 mg/dL Assessment/Plan 79 y/o Female with h/o CABG (2022), Anemia, Arthritis, CAD, CVA, DM, GERD, hyperlipidemia, hypertension, cholecystectomy, and hysterectomy, who presented to the ED with c/o Abdominal pain with n/v x 1 day. She endorsed subjective fever as well as dysuria and constipation. Pt also reports having had some chest pain at home for which she took nitro and had resolution of the chest pain prior to arrival in the ED. Pt underwent labs with initial troponin of 250, but eloped due to feeling better. The repeat troponin level was resulted at 982 therefore patient was contacted and ask to Return to the hospital for further workup and treatment. Troponin was trended further showing continued increase as follows: 250 - 982 - 1168 - 1287. Review of hospital records shows that patient was previously seen here last year for elevated troponin levels (similar to present) and was transferred to [facility] for CABG in Nov 2022. Cardiology is consulted for evaluation and management of NSTEMI. Pt endorses compliance with prescribed ASA, statin, losartan. She states she continues to see cardiology but has transferred through many offices in the past few years (Rory Reyes, [place], unsure of remainder per patient). HS troponin 250 - 982 - 1168 - 1287 EKG normal sinus rhythm at 54 bpm with prolonged QTc 580ms ECHO 07/10/23 <Conclusion>: Preserved left ventricular systolic function estimate ejection fraction of 55%. There is a concentric left ventricular hypertrophy of mild degree. There is a grade 1 diastolic dysfunction. Normal RV size and dimension. Normal RV systolic function with estimated pressure of 25 mmHg. Normal biatrial size and dimension. Aortic valve is mildly thickened there is mild aortic valve regurgitation. Mitral valve appears normal structure and function. The tricuspid valve is normal structure and function. The pulmonary valve is normal structure and function. No pericardial effusion. ECHO 09/13/24 Conclusion Normal left ventricular size and dimension. Normal left ventricular systolic function estimated ejection fraction 55%. There is a grade 1 diastolic dysfunction. Normal right ventricular size and dimension. Normal right ventricular systolic function. Moderately increased right ventricular systolic pressure 39 mm of mercury. Normal biatrial size and dimension. Normal aortic valve structure and function. Normal mitral valve structure and function. Normal tricuspid valve structure and function. The pulmonary valve is grossly normal. No pericardial effusion. LHC 09/15/24 Chronically occluded [place] left anterior descending artery as well as mid right coronary artery. Widely patent grafts including JENSEN to LAD, saphenous vein graft to distal PDA and obtuse marginal branch. Jump graft to 1st diagonal branch and 2nd obtuse marginal branch. Medical therapy is warranted. General: No acute distress. Awake and conversant. [place] speaking. Neck: Neck is supple. No masses or thyromegaly, no JVD, No carotid bruit. Respiratory: Respirations are non-labored. Lungs are clear to auscultation. Skin: Warm. CV: RRR, Normal heart sounds, no murmurs. No lower extremity edema. Neuro: AAo x 4 79 y/o Female with h/o CABG (2022), Anemia, Arthritis, CAD, CVA, DM, GERD, hyperlipidemia, hypertension, cholecystectomy, and hysterectomy, who presented to the ED with c/o Abdominal pain with n/v x 1 day was found to have elevated troponin levels > 1000. Assessments: NSTEMI h/o CABG 2022 Uncontrolled DM2 hyperlipidemia hypertension Hallucinations Fever Cardiac recommendations: Pt with NSTEMI and troponin > 1000. s/p LHC, no need for intervention ASA 81mg daily Heparin gtt infusing - discontinued Atorvastatin 40mg daily Nitro tabs PRN You can restart Losartan for better control of hypertension Home losartan not yet resumed due to marginal BP. Resume once hemodynamically improved NO BBlocker at this time due to prolonged QTc and bradycardia with HR in range of 50s. - suggest repeat ekg with reinitiation of BBlocker if HR will tolerate. LDL and A1C requested. - LDL 73 - A1C 10.1 (uncontrolled DM) Management per PMD. Had fever/hallucinations and being evaluated by Primary team. Cardiac monitoring Ongoing rate and rhythm surveillance Hemodynamic monitoring. Avoid hypertension and hypotension. Monitor and maintain electrolytes and renal function. Supplement as needed to maintain K > 4.0 and Mg > 2.0. Monitor Hgb and transfuse if Hgb < 7.0. Lifestyle and risk modification counseling All available labs, EKGs, and images were personally reviewed Plan of care discussed with and agreed upon by the patient/family/Primary RN. Prognosis: Guarded Cardiac bagley, stable Thank you for allowing me to participate in the care of this patient. Further recommendations will depend on clinical progression, hospitalist, and other consultants. Will continue to follow with Primary. If you have any questions, please do not hesitate to contact me. A total of 55 minutes was spent reviewing the patient record, examining the patient, making a diagnostic and therapeutic plan, discussing this plan with medical personnel, following up on diagnostic studies and following the patient for clinical stability including any and all procedures. At least 50% of this time was spent in direct, [id number] contact. Dietary Evaluation Review Comments: 1) Consider a Cardiac/[facility]HO 45g diet 2) Continue current plan of care Expected Outcomes/Goals: 1) F/U in 3-5 days Plan discussed with: Other (nurse) RAINA SANTANA MD Sep 20, 2024 08:14
--- NOTE | 2024-09-20 15:03 | DVHPN2 ---
Progress Note - Dictate Medical Necessity Reason Pt with a Central, PICC or Fol: No vital signs Vital Sign Date Time Temp Pulse Resp B/P (MAP) Pulse Ox O2 Delivery O2 Flow Rate FiO2 09/20/24 12:44 97.6 72 20 135/66 (89) 94 97.6 09/19/24 20:00 Room Air* 0 21 Total Intake and Output 09/19/24 09/19/24 09/20/24 15:00 23:00 07:00 Intake Total 450 ml 800 ml Output Total 1000 ml 450 ml Balance -550 ml 350 ml medications Current Medications Medications Dose Ordered Sig/Sammy Route Start Time Stop Time Status Last Admin Dose Admin Nitroglycerin 0.4 mg Q5MINP PRN SL 09/12/24 23:15 Morphine Sulfate 2 mg Q30M PRN IV 09/12/24 23:15 09/13/24 06:21 2 MG Diagnostic Test (Pha) 1 strip Q6HR 09/13/24 00:00 09/20/24 11:00 1 STRIP Insulin Human Regular Q6HR SC 09/13/24 00:00 09/20/24 11:18 6 UNITS Dextrose 50 ml UD PRN IV 09/12/24 23:15 Ondansetron HCl 4 mg Q4HP PRN IV 09/12/24 23:15 09/17/24 22:47 4 MG Atorvastatin Calcium 40 mg HS PO 09/13/24 22:00 09/19/24 22:25 40 MG Aspirin 81 mg DAILY PO 09/14/24 10:00 09/20/24 10:11 81 MG Sodium Chloride 1,000 ml @ 60 mls/hr [id number] IV 09/14/24 10:30 09/19/24 23:49 60 MLS/HR Acetaminophen 1,000 mg Q8HP PRN PO 09/14/24 16:00 09/17/24 22:49 1,000 MG Azithromycin 500 mg DAILY PO 09/15/24 10:00 09/20/24 10:11 500 MG Calcium Carbonate 500 mg QIDPRN PRN PO 09/18/24 00:15 09/19/24 09:55 500 MG Pantoprazole Sodium 40 mg DAILY@0600 PO 09/19/24 06:00 09/20/24 06:13 40 MG Ertapenem 1 gm/ Sodium Chloride 50 ml @ 100 mls/hr DAILY IV 09/19/24 10:00 Cancel Losartan Potassium 50 mg DAILY PO 09/19/24 10:00 09/20/24 10:16 50 MG Ertapenem 1 gm/ Sodium Chloride 50 ml @ 100 mls/hr Q24H IV 09/18/24 17:30 09/19/24 17:58 100 MLS/HR Zolpidem Tartrate 5 mg HSPRN PRN PO 09/19/24 20:30 09/19/24 22:25 5 MG objective General Appearance: alert, no distress HEENT: EOMI, PERRLA, normal external inspect of ears, no icterus, no nasal drainage Neck: no carotid bruit, no jugular venous distention (JVD), no lymphadenopathy Chest: normal thorax Respiratory: clear to auscultation, normal air movement Cardiovascular: regular rate and rhythm, no diastolic murmur, no jugular venous distention (JVD), no rub, no systolic murmur Abdominal: soft, no hepatomegaly, no mass, no splenomegaly, no tenderness Genitourinary: grossly normal external Musculoskeletal: no joint tenderness, no swelling Extremities: normal pulses, no calf tenderness, no clubbing, no cyanosis, no edema Skin: no bruising, no jaundice, no rash Neurological: alert, No focal deficit laboratory and microbiology Laboratory Tests 09/18/24 14:09 Test 09/18/24 14:09 Range/Units Serum Glucose 287 H 74-106 mg/dL Problem List 1. NSTEMI Monitor, cardiology consult, trend troponin, heparin gtt 2. CAD Monitor, cardiology consult, plan for possible angiogram 3. HLD Monitor, PPI 4. DM II & hyperglycemia Monitor, insulin ss 5. Hx CABG Monitor Assessment/Plan Subjective Patient is awake and alert Objective Patient had some episodes of confusion last night. Patient also had mildly elevated temperature. Patient was admitted for chest pain. She was found to be in NSTEMI. Patient is status post angio. Medical management has been suggested. Patient was cleared for discharge by cardiology however patient was febrile. Preliminary blood culture reports show gram-negative rods. Plan Continue medical management with aspirin and atorvastatin. Estimated EF is 55%. Continue IV fluids with normal saline at 60 mL an hour. ID consult. Start Cipro for gram-negative rods. Dietary Evaluation Review Comments: 1) Consider a Cardiac/[facility]HO 45g diet 2) Continue current plan of care Expected Outcomes/Goals: 1) F/U in 3-5 days ANGELY SHERMAN NP Sep 20, 2024 15:03
--- NOTE | 2024-09-20 15:57 | DVH ---
RENAL ULTRASOUND CLINICAL HISTORY: evaluate for renal obstruction, stones. UTI TECHNIQUE: Multiple ultrasound images of the kidneys and bladder were obtained. COMPARISON: None FINDINGS: The right kidney measures 10 cm in length. The left kidney measures 10 cm. The kidneys demonstrate ap propriate echotexture without evidence of a discrete solid renal lesion, nephrolithiasis or hydroneph rosis. The bladder appears within normal limits with prevoid volume measuring 498 cc. IMPRESSION: 1. Unremarkable renal ultrasound. HS:Y
[2024-09-20] MEDS ORDERED: LEVO500T91 PO (18:16)
--- NOTE | 2024-09-20 21:52 | DVHDS2 ---
Discharge Summary Date of Admission Sep 12, 2024 at 23:14 Date of Discharge: Sep 20, 2024 Labs/Diagnostic Data: Laboratory Results Test 09/20/24 18:03 09/18/24 14:09 09/17/24 14:20 09/15/24 10:40 POC Glucose 188 mg/dl (70-106) White Blood Count 7.2 10^3/uL (4.4-10.8) Red Blood Count 4.00 10^6/uL (4.0-5.20) Hemoglobin 12.2 g/dL (12.2-16.2) Hematocrit 36.7 % (36.0-46.0) Mean Corpuscular Volume 91.7 fL (80.0-100.0) Mean Corpuscular Hemoglobin 30.5 pg (28.0-32.0) Mean Corpuscular Hemoglobin Concent 33.3 g/dL (32.0-36.0) Red Cell Distribution Width 14.4 % (11.8-14.3) Platelet Count 194 10^3/uL (140-450) Mean Platelet Volume 9.0 fL (6.9-10.8) Neutrophils (%) (Auto) 69.9 % (37.0-80.0) Lymphocytes (%) (Auto) 18.5 % (10.0-50.0) Monocytes (%) (Auto) 9.4 % (0.0-12.0) Eosinophils (%) (Auto) 1.5 % (0.0-7.0) Basophils (%) (Auto) 0.7 % (0.0-2.0) Neutrophils # (Auto) 5.0 10 ^3/uL (1.6-8.6) Lymphocytes # (Auto) 1.3 10 ^3/uL (0.4-5.4) Monocytes # (Auto) 0.7 10 ^3/uL (0-1.3) Eosinophils # (Auto) 0.1 10 ^3/uL (0-0.8) Basophils # (Auto) 0 10 ^3/uL (0-0.2) Nucleated Red Blood Cells 0.0 % Sodium Level 137 mmol/L (136-145) Potassium Level 4.3 mmol/L (3.5-5.1) Chloride Level 104 mmol/L (98-107) Carbon Dioxide Level 27 mmol/L (20-31) Anion Gap 6 (5-15) Blood Urea Nitrogen 13 mg/dL (9-23) Creatinine 0.69 mg/dL (0.550-1.02) Glomerular Filtration Rate Calc 89 mL/min (>90) BUN/Creatinine Ratio 18.8 (10.0-20.0) Serum Glucose 287 mg/dL (74-106) Calcium Level 9.6 mg/dL (8.7-10.4) Influenza Type A Antigen Negative (Negative) Influenza Type B Antigen Negative (Negative) SARS-CoV-2 Antigen (Rapid) Negative (NEGATIVE) Urine Color Light-yellow (Yellow) Urine Clarity Turbid (Clear) Urine pH 5.0 (5.0-9.0) Urine Specific Morgan 1.024 (1.001-1.035) Urine Protein Trace (Negative) Urine Ketones 1+ (Negative) Urine Blood 1+ /uL (Negative) Urine Nitrite Negative (Negative) Urine Bilirubin Negative (Negative) Urine Urobilinogen Normal mg/dL (Negative) Urine Leukocyte Esterase 3+ /uL (Negative) Urine RBC 4 /hpf (0 - 4) Urine WBC 156 /hpf (0 - 5) Urine WBC Clumps Present /hpf (None Seen) Urine Squamous Epithelial Cells Few /hpf (<5) Urine Bacteria Few /hpf (None Seen) Urine Mucus Few (None Seen) Urine Glucose 4+ mg/dL (Normal) Test 09/15/24 09:57 09/14/24 05:33 09/13/24 06:00 Magnesium Level 2.0 mg/dL (1.6-2.6) Prothrombin Time 11.2 sec (9.3-11.8) Prothrombin Time INR 1.06 (0.9-1.15) Activated Partial Thromboplast Time 58.7 SEC (24.5-34.5) Hemoglobin A1c 8.3 % A1C (<5.7) Total Bilirubin 0.8 mg/dL (0.2-1.0) Aspartate Amino Transferase (AST) 27 U/L (13-40) Alanine Aminotransferase (ALT) 25 U/L (7-40) Alkaline Phosphatase 108 U/L (46-116) Troponin I High Sensitivity 832 ng/L (</=34) Total Protein 6.7 g/dL (5.7-8.2) Albumin 3.7 g/dL (3.2-4.8) Triglycerides Level 102 mg/dL (< 150) Cholesterol Level 136 mg/dL (< 200) LDL Cholesterol 73 mg/dL (< 100) HDL Cholesterol 43 mg/dL (40-59) Other Laboratory Tests 09/18/24 14:09 Brief Hx & Hospital Course: Patient was admitted for chest pain. Patient was found to be in NSTEMI. Patient was seen by cardiology. Patient is status post angiogram. Medical management was advised. Patient had positive blood cultures. Repeat blood cultures were negative. Ultrasound of kidneys did not show any pyelonephritis. Patient was cleared for discharge by infectious disease. Patient was sent medications as recommended by cardiology. Patient was also sent oral antibiotics with Levaquin as recommended by ID. Patient to follow-up with her PCP in 1 week and cardiology in 2 weeks. The patient received proper medical treatment and medications. Vital signs, Imaging and Laboratory Work was monitored daily. All consults recommendations were followed as provided. There were no complaints or new complaints upon discharge, all questions and concerns were answered. Patient was advised to return to the ER or call 911 if any headaches, dizziness, shortness of breath, chest pain, bleeding, fevers, or worsening of medical condition. Patient/Family was counseled about treatment plan, medications, possible side effects, patient verbalized understanding. All questions were answered to the best of my ability. The patient symptoms improved and they are okay to be DC. 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 Patient was counseled about treatment plan, medications, possible side effects, patientverbalized understanding. All questions were answered to the best of my ability. This discharge took greater then 30 minutes in planning, reviewing documentation, counseling the patient, and discussing with other team members." ASSESSMENT ASSESSMENT Assessment chronically occluded mash[place] left anterior descending artery ANGELY SHERMAN NP Sep 20, 2024 21:52
--- NOTE | 2024-09-20 22:11 | DVHPN2 ---
Consult Progress Note Date Seen: Sep 20, 2024 Subjective Patient reports: Feels better (no nausea, no chest pain. troponins improved) Objective vital signs Vital Sign Date Time Temp Pulse Resp B/P (MAP) Pulse Ox O2 Delivery O2 Flow Rate FiO2 09/20/24 21:00 98.4 83 18 135/69 (91) 96 98.4 09/20/24 10:30 Room Air* 0 21 Total Intake and Output 09/19/24 09/19/24 09/20/24 15:00 23:00 07:00 Intake Total 450 ml 800 ml Output Total 1000 ml 450 ml Balance -550 ml 350 ml medications Current Medications Medications Dose Ordered Sig/Sammy Route Start Time Stop Time Status Last Admin Dose Admin Ertapenem 1 gm/ Sodium Chloride 50 ml @ 100 mls/hr DAILY IV 09/19/24 10:00 Cancel PHYSICAL EXAM: - GENERAL: Alert and oriented x 3. No acute distress. Well-nourished. ? - EYES: EOMI. Anicteric. ?- HENT: Moist mucous membranes. No scleral icterus. No cervical lymphadenopathy. ?- LUNGS: Clear to auscultation bilaterally. No accessory muscle use.? - CARDIOVASCULAR: Regular rate and rhythm. No murmur. No JVD.? - ABDOMEN: Soft, non-tender and non-distended. No palpable masses.? - EXTREMITIES: No edema. Non-tender.?SKIN: No rashes or lesions. Warm. ? - NEUROLOGIC: No focal neurological deficits. CN II-XII grossly intact, but not individually tested.? - PSYCHIATRIC: Cooperative. Appropriate mood and affect. laboratory and microbiology Laboratory Tests 09/18/24 14:09 Test 09/18/24 14:09 Range/Units Serum Glucose 287 H 74-106 mg/dL Problem List/Assessment/Plan Problem List/Assessment/Plan ID Problem List: - Urosepsis - ESBL E. coli bacteremia - Urinary tract infection - Nausea and vomiting - Diabetes mellitus - Coronary artery disease - Anemia - Dyslipidemia - Hypertension - Stroke (HCC) - History of kidney stones - Penicillin allergy Assessment This is a 79 y.o. female with a past medical history of diabetes mellitus, coronary artery disease, anemia, dyslipidemia, hypertension, and stroke (HCC), who presents with nausea and vomiting ongoing for one day prior to admission. She went to the emergency room and then left AMA when she was feeling better but then returned. She denies any chest pain or shortness of breath. Her troponins are now elevated. She denies dysuria, abdominal pain, or flank pain. Urinalysis shows 3+ leukocyte esterase, pyuria, and negative nitrates. Blood cultures are positive for ESBL E. coli. Physical exam notable for an elderly female, regular rate and rhythm, clear lungs, soft abdomen, no suprapubic tenderness, and no CVA tenderness. Labs notable for WBC 11.3 on admission, hemoglobin 12.2, platelets 153, blood glucose 243, sodium 143, potassium 3.4, BUN 10, and creatinine 0.74. 1. Unremarkable renal ultrasound.\ Plan: - continue ertapenem - levofloxacin 500mg x 5 more days when patient is ready for discharge - will fu on repeated blood cultures to ensure bacteremia has cleared - Discontinue Zapata catheter when able - Monitor blood sugars and manage diabetes mellitus - Monitor troponin levels; consider cardiology consult for elevated troponins - Continue home medications as appropriate Isolation Precautions: standard Assessment and plan was discussed with the patient as written above Plan is subject to change pending incorporation of new incoming information/diagnostics. Updates may be added as addendum at the bottom (OR TOP) of this note Thank you for interesting consult. ID will continue to follow. Please contact Infectious disease for any questions or concerns. uDng Ramirez M.D. [facility] Ph: ? Plan discussed with: Patient Dietary Evaluation Review Comments: 1) Consider a Cardiac/CCHO 45g diet 2) Continue current plan of care Expected Outcomes/Goals: 1) F/U in 3-5 days DUNG RAMIREZ MD Sep 20, 2024 22:11
--- NOTE | 2024-09-20 22:11 | DVHPN2 ---
Consult Progress Note Date Seen: Sep 19, 2024 Subjective Patient reports: Feels better (ongoing nausea, no dysuria no flank pain) Objective vital signs Vital Sign Date Time Temp Pulse Resp B/P (MAP) Pulse Ox O2 Delivery O2 Flow Rate FiO2 09/20/24 21:00 98.4 83 18 135/69 (91) 96 98.4 09/20/24 10:30 Room Air* 0 21 Total Intake and Output 09/19/24 09/19/24 09/20/24 15:00 23:00 07:00 Intake Total 450 ml 800 ml Output Total 1000 ml 450 ml Balance -550 ml 350 ml medications Current Medications Medications Dose Ordered Sig/Sammy Route Start Time Stop Time Status Last Admin Dose Admin Ertapenem 1 gm/ Sodium Chloride 50 ml @ 100 mls/hr DAILY IV 09/19/24 10:00 Cancel PHYSICAL EXAM: - GENERAL: Alert and oriented x 3. No acute distress. Well-nourished. ? - EYES: EOMI. Anicteric. ?- HENT: Moist mucous membranes. No scleral icterus. No cervical lymphadenopathy. ?- LUNGS: Clear to auscultation bilaterally. No accessory muscle use.? - CARDIOVASCULAR: Regular rate and rhythm. No murmur. No JVD.? - ABDOMEN: Soft, non-tender and non-distended. No palpable masses.? - EXTREMITIES: No edema. Non-tender.?SKIN: No rashes or lesions. Warm. ? - NEUROLOGIC: No focal neurological deficits. CN II-XII grossly intact, but not individually tested.? - PSYCHIATRIC: Cooperative. Appropriate mood and affect. laboratory and microbiology Laboratory Tests 09/18/24 14:09 Test 09/18/24 14:09 Range/Units Serum Glucose 287 H 74-106 mg/dL Problem List/Assessment/Plan Problem List/Assessment/Plan ID Problem List: - Urosepsis - ESBL E. coli bacteremia - Urinary tract infection - Nausea and vomiting - Diabetes mellitus - Coronary artery disease - Anemia - Dyslipidemia - Hypertension - Stroke (HCC) - History of kidney stones - Penicillin allergy Assessment This is a 79 y.o. female with a past medical history of diabetes mellitus, coronary artery disease, anemia, dyslipidemia, hypertension, and stroke (HCC), who presents with nausea and vomiting ongoing for one day prior to admission. She went to the emergency room and then left AMA when she was feeling better but then returned. She denies any chest pain or shortness of breath. Her troponins are now elevated. She denies dysuria, abdominal pain, or flank pain. Urinalysis shows 3+ leukocyte esterase, pyuria, and negative nitrates. Blood cultures are positive for ESBL E. coli. Physical exam notable for an elderly female, regular rate and rhythm, clear lungs, soft abdomen, no suprapubic tenderness, and no CVA tenderness. Labs notable for WBC 11.3 on admission, hemoglobin 12.2, platelets 153, blood glucose 243, sodium 143, potassium 3.4, BUN 10, and creatinine 0.74. Plan: - continue ertapenem - Recommend renal ultrasound to evaluate for obstruction, pyelonephritis, or renal abscess - Repeat blood cultures to ensure bacteremia has cleared - Discontinue Zapata catheter when able - Monitor blood sugars and manage diabetes mellitus - Monitor troponin levels; consider cardiology consult for elevated troponins - Continue home medications as appropriate Isolation Precautions: contact for ESBL Assessment and plan was discussed with the patient as written above Plan is subject to change pending incorporation of new incoming information/diagnostics. Updates may be added as addendum at the bottom (OR TOP) of this note Thank you for interesting consult. ID will continue to follow. Please contact Infectious disease for any questions or concerns. Dung Ramirez M.D. [facility] Ph: ? Plan discussed with: Patient Dietary Evaluation Review Comments: 1) Consider a Cardiac/CCHO 45g diet 2) Continue current plan of care Expected Outcomes/Goals: 1) F/U in 3-5 days DUNG RAMIREZ MD Sep 20, 2024 22:11
== END 2024-09-20 21:23 | disposition home or self-care (01) | DRG 871 ==
LOC: ER 22:00 → TELE 23:14 → TELE-WESTW 09-13 18:12 → TELE-CENTR 09-19 00:30 → TELE-WESTW 09-19 21:38
PROVIDERS: ADMIT Nurse Practitioner; ATTEND Nurse Practitioner
PROC: 4A023N7 Measurement of Cardiac Sampling and Pressure, Left Heart, Percutaneous Approach (ICD-10-PCS; principal; 2024-09-14)
PROC: B2111ZZ Fluoroscopy of Multiple Coronary Arteries using Low Osmolar Contrast (ICD-10-PCS; 2024-09-14)
PROC: B2181ZZ Fluoroscopy of Left Internal Mammary Bypass Graft using Low Osmolar Contrast (ICD-10-PCS; 2024-09-14)
PROC: B2131ZZ Fluoroscopy of Multiple Coronary Artery Bypass Grafts using Low Osmolar Contrast (ICD-10-PCS; 2024-09-14)
DX: A41.9 Sepsis, unspecified organism (principal); I21.4 Non-ST elevation (NSTEMI) myocardial infarction; Z16.12 Extended spectrum beta lactamase (ESBL) resistance; N30.00 Acute cystitis without hematuria; I10 Essential (primary) hypertension; E78.5 Hyperlipidemia, unspecified; Z20.822 Contact with and (suspected) exposure to COVID-19; E11.65 Type 2 diabetes mellitus with hyperglycemia; E66.9 Obesity, unspecified; K21.9 Gastro-esophageal reflux disease without esophagitis; K59.00 Constipation, unspecified; D64.9 Anemia, unspecified; B96.20 Unspecified Escherichia coli [E. coli] as the cause of diseases classified elsewhere; Z88.0 Allergy status to penicillin; Z90.710 Acquired absence of both cervix and uterus; Z90.49 Acquired absence of other specified parts of digestive tract; Z95.1 Presence of aortocoronary bypass graft; Z86.73 Personal history of transient ischemic attack (TIA), and cerebral infarction without residual deficits; Z82.49 Family history of ischemic heart disease and other diseases of the circulatory system; Z83.3 Family history of diabetes mellitus; Z79.82 Long term (current) use of aspirin; Z79.899 Other long term (current) drug therapy; Z87.442 Personal history of urinary calculi; Z68.26 Body mass index [BMI] 26.0-26.9, adult
CPT/HCPCS: 36415; 71045; 76775; 80048; 80053; 80061; 81001; 82962; 83036; 83735; 84484; 85025; 85610; 85730; 86850; 86900; 86901; 87040; 87077; 87086; 87426; 87804; 93005; 93306; 93459; 94640; 99152; 99291; G0378; J0692; J1335; J1815; J2250; J2405; J3480; Q9967